=== PATIENT | female | born 1980 | race Caucasian/White ===

== ENCOUNTER 2016-11-27 13:52 | Emergency (ER) | payer MEDICAID, OTHER ==
[2016-11-27 14:54] VITALS: RESP 18
[2016-11-27] MEDS ORDERED: SODIUM CHLORIDE 0.9% 1,000 ML IV STA (16:21)
[2016-11-27] MEDS ORDERED: HYDROmorphone 1 MG/ML 1 ML SYRINGE IVP STA (16:29)
[2016-11-27] MEDS ORDERED: ONDANSETRON 4 MG/2 ML VIAL IVP STA (16:29)
--- NOTE | 2016-11-27 16:33 | ED ---
Abdominal Pain HPI - General Chief Complaint: Abdominal Pain Stated Complaint: Pancreatitis Time Seen by Provider: 11/27/16 16:21 Source: patient, RN notes reviewed Mode of arrival: ambulatory Limitations: no limitations - History of Present Illness Initial Comments: 36-year-old female presents emergency Department chief complaint abdominal pain. Patient states pain started today. Patient has a long-standing history of pancreatitis. Patient had multiple admissions for this. Patient states that she's had EGDs and ERCPs for this. Patient states pain feels very similar and she usually has about every 6 months. Patient states last one was almost one year ago. Patient does admit some nausea no vomiting diarrhea constipation. Patient denies any chest pain or shortness breath. Patient denies any back pain or any flank pain at this time. - Related Data Home Medications Medication Instructions Recorded Confirmed Citalopram Hydrobromide [CeleXA] 10 mg PO DAILY 11/27/16 11/27/16 Previous Rx's Medication Instructions Recorded HYDROcodone/APAP 7.5-325MG [[place] 1 tab PO Q6HR PRN #20 tab 11/27/16 7.5-325] Ondansetron Odt [Zofran Odt] 4 mg PO Q8HR PRN #10 tab 11/27/16 Allergies Allergy/AdvReac Type Severity Reaction Status Date / Time Iodinated Contrast Media - Allergy Severe Anaphylaxis Verified 11/27/16 16:59 Oral and [Iodinated Contrast Media - IV Dye] latex Allergy Rash/Hives Verified 11/27/16 16:59 shellfish derived Allergy Anaphylaxis Verified 11/27/16 16:59 metoclopramide HCl AdvReac Facial Verified 11/27/16 16:59 [From Reglan] Twitching prochlorperazine edisylate AdvReac Facial Verified 11/27/16 16:59 [From Compazine] Twitching prochlorperazine maleate AdvReac Facial Verified 11/27/16 16:59 [From Compazine] Twitching promethazine HCl AdvReac Facial Verified 11/27/16 16:59 [From Phenergan] Twitching Review of Systems ROS Statement: Those systems with pertinent positive or pertinent negative responses have been documented in the HPI. ROS Other: All systems not noted in ROS Statement are negative. Past Medical History Additional Past Medical History / Comment(s): pancreatitis, pancreatic divis History of Any Multi-Drug Resistant Organisms: None Reported Past Surgical History: Uterine Ablation Additional Past Surgical History / Comment(s): laproscopies, multiple egd's and ercp's and ablation (1 years ago) Past Anesthesia/Blood Transfusion Reactions: No Reported Reaction Additional Past Anesthesia/Blood Transfusion Reaction / Comment(s): never had blood transfusion Past Psychological History: No Psychological Hx Reported Smoking Status: Former smoker Past Alcohol Use History: None Reported Additional Past Alcohol Use History / Comment(s): Doesn't drink Past Drug Use History: None Reported - Past Family History Mother Family Medical History: No Reported History Father Family Medical History: No Reported History General Exam Limitations: no limitations General appearance: alert, in no apparent distress Neck exam: Present: normal inspection, full ROM. Absent: tenderness, meningismus, lymphadenopathy Respiratory exam: Present: normal lung sounds bilaterally. Absent: respiratory distress, wheezes, rales, rhonchi, stridor Cardiovascular Exam: Present: regular rate, normal rhythm, normal heart sounds. Absent: systolic murmur, diastolic murmur, rubs, gallop, clicks GI/Abdominal exam: Present: soft, tenderness (Moderate midabdominal tenderness) , normal bowel sounds. Absent: distended, guarding, rebound, rigid Back exam: Absent: CVA tenderness (R), CVA tenderness (L) Course Vital Signs 11/27/16 14:52 Temperature 98.2 F Pulse Rate 113 H Respiratory 18 Rate Blood Pressure 138/75 O2 Sat by Pulse 96 Oximetry Medical Decision Making - Medical Decision Making 36-year-old female presents emergency Department with chief complaint of abdominal pain. Patient has a history of chronic pancreatitis. Patient's lipase is 2500. Patient states she developed this time patient discharged advised to increase her fluids and be discharged with pain medication. - Lab Data Result diagrams: 11/27/16 17:09 11/27/16 17:09 Lab Results 11/27/16 11/27/16 11/27/16 Range/Units 16:54 16:54 17:09 WBC (3.8-10.6) k/uL RBC (3.80-5.40) m/uL Hgb (11.4-16.0) gm/dL Hct (34.0-46.0) % MCV (80.0-100.0) fL MCH (25.0-35.0) pg MCHC (31.0-37.0) g/dL RDW (11.5-15.5) % Plt Count (150-450) k/uL Neutrophils % % Lymphocytes % % Monocytes % % Eosinophils % % Basophils % % Neutrophils # (1.3-7.7) k/uL Lymphocytes # (1.0-4.8) k/uL Monocytes # (0-1.0) k/uL Eosinophils # (0-0.7) k/uL Basophils # (0-0.2) k/uL Sodium 139 (137-145) mmol/L Potassium 4.1 (3.5-5.1) mmol/L Chloride 106 (98-107) mmol/L Carbon Dioxide 21 L (22-30) mmol/L Anion Gap 12 mmol/L BUN 10 (7-17) mg/dL Creatinine 0.77 (0.52-1.04) mg/dL Est GFR (MDRD) Af Amer >60 (>60 ml/min/1.73 sqM) Est GFR (MDRD) Non-Af >60 (>60 ml/min/1.73 sqM) Glucose 94 (74-99) mg/dL Calcium 9.6 (8.4-10.2) mg/dL Total Bilirubin 0.8 (0.2-1.3) mg/dL AST 19 (14-36) U/L ALT 24 (9-52) U/L Alkaline Phosphatase 98 (38-126) U/L Total Protein 7.8 (6.3-8.2) g/dL Albumin 4.6 (3.5-5.0) g/dL Amylase 212 H (30-110) U/L Lipase 531 H (23-300) U/L Urine Color Light Yellow Urine Appearance Clear (Clear) Urine pH 8.0 (5.0-8.0) Ur Specific [place] 1.007 (1.001-1.035) Urine Protein Negative (Negative) Urine Glucose (UA) Negative (Negative) Urine Ketones Negative (Negative) Urine Blood Negative (Negative) Urine Nitrite Negative (Negative) Urine Bilirubin Negative (Negative) Urine Urobilinogen <2.0 (<2.0) mg/dL Ur Leukocyte Esterase Negative (Negative) Urine HCG, Qual Not Detected (Not Detectd) 05/26/17 Range/Units 17:09 WBC 10.8 H (3.8-10.6) k/uL RBC 4.62 (3.80-5.40) m/uL Hgb 13.2 (11.4-16.0) gm/dL Hct 38.8 (34.0-46.0) % MCV 84.0 (80.0-100.0) fL MCH 28.6 (25.0-35.0) pg MCHC 34.0 (31.0-37.0) g/dL RDW 12.3 (11.5-15.5) % Plt Count 332 (150-450) k/uL Neutrophils % 73 % Lymphocytes % 20 % Monocytes % 4 % Eosinophils % 1 % Basophils % 0 % Neutrophils # 7.9 H (1.3-7.7) k/uL Lymphocytes # 2.1 (1.0-4.8) k/uL Monocytes # 0.5 (0-1.0) k/uL Eosinophils # 0.1 (0-0.7) k/uL Basophils # 0.0 (0-0.2) k/uL Sodium (137-145) mmol/L Potassium (3.5-5.1) mmol/L Chloride (98-107) mmol/L Carbon Dioxide (22-30) mmol/L Anion Gap mmol/L BUN (7-17) mg/dL Creatinine (0.52-1.04) mg/dL Est GFR (MDRD) Af Amer (>60 ml/min/1.73 sqM) Est GFR (MDRD) Non-Af (>60 ml/min/1.73 sqM) Glucose (74-99) mg/dL Calcium (8.4-10.2) mg/dL Total Bilirubin (0.2-1.3) mg/dL AST (14-36) U/L ALT (9-52) U/L Alkaline Phosphatase (38-126) U/L Total Protein (6.3-8.2) g/dL Albumin (3.5-5.0) g/dL Amylase (30-110) U/L Lipase (23-300) U/L Urine Color Urine Appearance (Clear) Urine pH (5.0-8.0) Ur Specific [place] (1.001-1.035) Urine Protein (Negative) Urine Glucose (UA) (Negative) Urine Ketones (Negative) Urine Blood (Negative) Urine Nitrite (Negative) Urine Bilirubin (Negative) Urine Urobilinogen (<2.0) mg/dL Ur Leukocyte Esterase (Negative) Urine HCG, Qual (Not Detectd) Disposition Clinical Impression: Chronic pancreatitis, Pancreatic divisum Disposition: HOME SELF-CARE Condition: Stable Instructions: Pancreatitis (ED) Additional Instructions: Please return to the Emergency Department if symptoms worsen or any other concerns. Prescriptions: HYDROcodone/APAP 7.5-325MG [[place] 7.5-325] 1 tab PO Q6HR PRN #20 tab PRN Reason: Pain Ondansetron Odt [Zofran Odt] 4 mg PO Q8HR PRN #10 tab PRN Reason: Nausea Referrals: Andrew Aaron MD [Primary Care Provider] - 1-2 days Time of Disposition: 17:41
[2016-11-27 17:04] LABS: Appearance,Urine Clear (Clear); Bilirubin,Urine Negative (Negative); Glucose,Urine (UA) Negative (Negative); Ketones,Urine Negative (Negative); Leukocyte Esterase,Urine Negative (Negative); Nitrite,Urine Negative (Negative); Protein,Urine Negative (Negative); Specific Gravity,Urine 1.007 (1.001-1.035); UA Billing (MACRO vs. MICRO) CHEM; Urobilinogen,Urine <2.0 mg/dL (<2.0)
[2016-11-27 17:23] LABS: Basophils % (A) 0 %; CH 29.3; Eosinophils # (A) 0.1 k/uL (0-0.7); Eosinophils % (A) 1 %; HCT 38.8 % (34.0-46.0); HDW 2.53; HGB 13.2 gm/dL (11.4-16.0); Luc # (Auto) 0.17; Luc % (Auto) 2; Lymphocytes # (A) 2.1 k/uL (1.0-4.8); Lymphocytes % (A) 20 %; MCH 28.6 pg (25.0-35.0); Mean Platelet Volume 6.9; Monocytes # (A) 0.5 k/uL (0-1.0); Monocytes % (A) 4 %; Neutrophils # (A) 7.9 k/uL (1.3-7.7); Neutrophils % (A) 73 %; RBC 4.62 m/uL (3.80-5.40); RDW 12.3 % (11.5-15.5); WBC 10.8 k/uL (3.8-10.6); WBC (Perox) 10.45
[2016-11-27 17:31] LABS: ALT 24 U/L (9-52); AST 19 U/L (14-36); Alkaline Phosphatase 98 U/L (38-126); Amylase 212 U/L (30-110); Anion Gap 12 mmol/L; Blood Urea Nitrogen 10 mg/dL (7-17); Calcium 9.6 mg/dL (8.4-10.2); Carbon Dioxide 21 mmol/L (22-30); Chloride 106 mmol/L (98-107); Glucose 94 mg/dL (74-99); Non-African American GFR(MDRD) >60 (>60 ml/min/1.73 sqM); Potassium 4.1 mmol/L (3.5-5.1); Sodium 139 mmol/L (137-145); Total Bilirubin 0.8 mg/dL (0.2-1.3); Total Protein 7.8 g/dL (6.3-8.2)
[2016-11-27 17:55] VITALS: BP 110/59; PULSE 95; TEMP 98.4
== END 2016-11-27 17:55 | disposition home or self-care (01) ==
LOC: EC 13:52
DX: K86.1 Other chronic pancreatitis (principal); Q45.3 Other congenital malformations of pancreas and pancreatic duct; R11.0 Nausea; Z87.891 Personal history of nicotine dependence; Z79.899 Other long term (current) drug therapy; Z91.041 Radiographic dye allergy status; Z91.013 Allergy to seafood; Z88.8 Allergy status to other drugs, medicaments and biological substances; Z91.040 Latex allergy status
CPT/HCPCS: 36415; 80053; 82150; 83690; 85025; 81003; 81025; 99284; 96374; 96375; 96361; J2405; J1170

== ENCOUNTER → 2017-01-19 | Outpatient (CLI) | payer MEDICAID, OTHER ==
[2017-01-19 08:21] LABS: Basophils # (A) 0.1 k/uL (0-0.2); Basophils % (A) 1 %; CH 28.9; CHCM 33.8; Eosinophils # (A) 0.1 k/uL (0-0.7); Eosinophils % (A) 1 %; HCT 40.6 % (34.0-46.0); HDW 2.44; HGB 13.8 gm/dL (11.4-16.0); Luc # (Auto) 0.17; Luc % (Auto) 2; Lymphocytes % (A) 31 %; MCH 29.1 pg (25.0-35.0); MCV 85.8 fL (80.0-100.0); Mean Platelet Volume 7.3; Monocytes # (A) 0.4 k/uL (0-1.0); Monocytes % (A) 5 %; Neutrophils # (A) 5.8 k/uL (1.3-7.7); Neutrophils % (A) 60 %; RBC 4.73 m/uL (3.80-5.40); RDW 12.7 % (11.5-15.5); WBC 9.6 k/uL (3.8-10.6)
[2017-01-19 08:43] LABS: ALT 23 U/L (9-52); AST 17 U/L (14-36); Alkaline Phosphatase 94 U/L (38-126); Anion Gap 12 mmol/L; Blood Urea Nitrogen 10 mg/dL (7-17); Calcium 9.5 mg/dL (8.4-10.2); Carbon Dioxide 24 mmol/L (22-30); Chloride 105 mmol/L (98-107); Cholesterol 213 mg/dL (<200); Glucose 88 mg/dL (74-99); HDL Cholesterol 59 mg/dL (40-60); Non-African American GFR(MDRD) >60 (>60 ml/min/1.73 sqM); Potassium 4.4 mmol/L (3.5-5.1); Sodium 141 mmol/L (137-145); Total Bilirubin 0.5 mg/dL (0.2-1.3); Total Protein 7.4 g/dL (6.3-8.2); Triglycerides 184 mg/dL (<150)
== END | disposition home or self-care (01) ==
LOC: LABWHC1 07:51
PROVIDERS: ATTEND Family Medicine
DX: Z00.00 Encounter for general adult medical examination without abnormal findings (principal)
CPT/HCPCS: 36415; 80053; 80061; 82306; 84443; 85025

== ENCOUNTER → 2017-01-25 | Outpatient (CLI) | payer MEDICAID, OTHER | END | disposition home or self-care (01) | LOC: LABWHC1 08:18 | PROVIDERS: ATTEND Family Medicine | DX: F41.9 Anxiety disorder, unspecified (principal) | CPT/HCPCS: 36415; 84439; 84443; 84481 ==

== ENCOUNTER → 2017-04-08 | Outpatient (CLI) | payer MEDICAID, OTHER ==
[2017-04-08 09:59] LABS: ALT 32 U/L (9-52); AST 17 U/L (14-36); Alkaline Phosphatase 93 U/L (38-126); Anion Gap 11 mmol/L; Blood Urea Nitrogen 7 mg/dL (7-17); Calcium 9.7 mg/dL (8.4-10.2); Carbon Dioxide 25 mmol/L (22-30); Chloride 104 mmol/L (98-107); Glucose 100 mg/dL (74-99); Non-African American GFR(MDRD) >60 (>60 ml/min/1.73 sqM); Potassium 4.6 mmol/L (3.5-5.1); Sodium 140 mmol/L (137-145); Total Bilirubin 0.5 mg/dL (0.2-1.3); Total Protein 7.1 g/dL (6.3-8.2)
== END | disposition home or self-care (01) ==
LOC: LABWHC1 08:06
PROVIDERS: ATTEND Family Medicine
DX: E55.9 Vitamin D deficiency, unspecified (principal); R79.89 Other specified abnormal findings of blood chemistry
CPT/HCPCS: 36415; 80053; 82306; 84436; 84443; 84481

== ENCOUNTER → 2017-09-24 | Outpatient (CLI) | payer MEDICAID, OTHER ==
[2017-09-24 08:45] LABS: Basophils # (A) 0.1 k/uL (0-0.2); Basophils % (A) 1 %; Eosinophils # (A) 0.2 k/uL (0-0.7); Eosinophils % (A) 2 %; HCT 38.9 % (34.0-46.0); HGB 13.7 gm/dL (11.4-16.0); Lymphocytes # (A) 2.3 k/uL (1.0-4.8); Lymphocytes % (A) 30 %; MCH 29.1 pg (25.0-35.0); MCHC 35.2 g/dL (31.0-37.0); MCV 82.6 fL (80.0-100.0); Mean Platelet Volume 6.9; Monocytes # (A) 0.5 k/uL (0-1.0); Monocytes % (A) 6 %; Neutrophils # (A) 4.8 k/uL (1.3-7.7); Neutrophils % (A) 60 %; Platelet Count 394 k/uL (150-450); RBC 4.71 m/uL (3.80-5.40); RDW 12.2 % (11.5-15.5); WBC 7.9 k/uL (3.8-10.6)
[2017-09-24 10:55] LABS: ALT 24 U/L (9-52); AST 16 U/L (14-36); Albumin 4.6 g/dL (3.5-5.0); Alkaline Phosphatase 74 U/L (38-126); Anion Gap 15 mmol/L; Blood Urea Nitrogen 17 mg/dL (7-17); Carbon Dioxide 25 mmol/L (22-30); Chloride 104 mmol/L (98-107); Glucose 99 mg/dL (74-99); Potassium 4.6 mmol/L (3.5-5.1); Sodium 144 mmol/L (137-145); Total Bilirubin 0.3 mg/dL (0.2-1.3); Total Protein 7.6 g/dL (6.3-8.2)
[2017-09-24 11:09] LABS: T4, Free (Free Thyroxine) 0.94 ng/dL (0.78-2.19)
== END | disposition home or self-care (01) ==
LOC: LABWHC1 08:12
PROVIDERS: ATTEND Family Medicine
DX: E55.9 Vitamin D deficiency, unspecified (principal); R94.6 Abnormal results of thyroid function studies
CPT/HCPCS: 36415; 80053; 82306; 84439; 84443; 84481; 85025

== ENCOUNTER 2017-11-07 19:40 | Inpatient (IN) | payer MEDICAID, OTHER ==
[2017-11-07] MEDS ORDERED: SODIUM CHLORIDE 0.9% 1,000 ML IV STA (20:09)
[2017-11-07] MEDS ORDERED: SODIUM CHLORIDE 0.9% 500 ML IV STA (20:09)
[2017-11-07] MEDS ORDERED: ONDANSETRON 4 MG/2 ML VIAL IVP STA (20:09)
[2017-11-07] MEDS ORDERED: MORPHINE SULFATE 4 MG/ML SYRINGE IVP STA ×2 (20:09→21:12)
[2017-11-07 20:33] LABS: Basophils % (A) 0 %; Eosinophils # (A) 0.2 k/uL (0-0.7); Eosinophils % (A) 2 %; HCT 38.3 % (34.0-46.0); HGB 13.4 gm/dL (11.4-16.0); Lymphocytes # (A) 2.6 k/uL (1.0-4.8); Lymphocytes % (A) 22 %; MCH 28.3 pg (25.0-35.0); MCHC 35.1 g/dL (31.0-37.0); MCV 80.7 fL (80.0-100.0); Mean Platelet Volume 6.7; Monocytes # (A) 0.5 k/uL (0-1.0); Monocytes % (A) 4 %; Neutrophils # (A) 8.1 k/uL (1.3-7.7); Neutrophils % (A) 71 %; Platelet Count 396 k/uL (150-450); RBC 4.74 m/uL (3.80-5.40); RDW 12.1 % (11.5-15.5); WBC 11.5 k/uL (3.8-10.6)
[2017-11-07 20:36] LABS: Appearance,Urine Cloudy (Clear); Bacteria,Urine Occasional /hpf; Bilirubin,Urine Negative (Negative); Blood,Urine Negative (Negative); Color,Urine Yellow; Glucose,Urine (UA) Negative (Negative); Ketones,Urine Negative (Negative); Leukocyte Esterase,Urine Negative (Negative); Nitrite,Urine Negative (Negative); PH, Urine 6.5 (5.0-8.0); Protein,Urine Negative (Negative); Specific Gravity,Urine 1.018 (1.001-1.035); Squamous Epithelial Cell,Urine 7 /hpf (0-4); WBC,Urine 1 /hpf (0-5)
[2017-11-07 20:49] LABS: ALT 16 U/L (9-52); AST 14 U/L (14-36); Albumin 4.3 g/dL (3.5-5.0); Alkaline Phosphatase 78 U/L (38-126); Anion Gap 14 mmol/L; Blood Urea Nitrogen 10 mg/dL (7-17); Calcium 9.3 mg/dL (8.4-10.2); Carbon Dioxide 23 mmol/L (22-30); Chloride 106 mmol/L (98-107); Glucose 104 mg/dL (74-99); Potassium 4.1 mmol/L (3.5-5.1); Sodium 143 mmol/L (137-145); Total Bilirubin 0.3 mg/dL (0.2-1.3); Total Protein 6.9 g/dL (6.3-8.2)
--- NOTE | 2017-11-07 21:36 | ED ---
Abdominal Pain HPI - General Chief Complaint: Abdominal Pain Stated Complaint: Abd Pain Time Seen by Provider: 11/07/17 19:55 Source: patient Mode of arrival: ambulatory Limitations: no limitations - History of Present Illness Initial Comments: 37-year-old female patient presents to the emergency department today with complaints of midepigastric pain that radiates into her back. Patient does have a history of pancreatitis due to pancreatic divisum. Patient states that usually she is able to get the attacks under control at home with pain medication. States that today the pain is too severe and she is unable to tolerate it. Patient states she has been very nauseated but has not vomited. The patient states that pain started around 9:00 this morning. She denies any constipation, diarrhea, fever, chills, hematuria, dysuria, urinary frequency, urinary urgency. Patient denies any recent rash, shortness breath, chest pain, numbness, tingling, dizziness, weakness, headache, visual changes, or any other complaints. - Related Data Home Medications Medication Instructions Recorded Confirmed Citalopram Hydrobromide [CeleXA] 10 mg PO DAILY 11/27/16 11/27/16 Previous Rx's Medication Instructions Recorded HYDROcodone/APAP 7.5-325MG [[place] 1 tab PO Q6HR PRN #20 tab 11/27/16 7.5-325] Ondansetron Odt [Zofran Odt] 4 mg PO Q8HR PRN #10 tab 11/27/16 Allergies Allergy/AdvReac Type Severity Reaction Status Date / Time Iodinated Contrast- Oral and Allergy Severe Anaphylaxis Verified 11/07/17 19:54 IV Dye [Iodinated Contrast Media - IV Dye] latex Allergy Rash/Hives Verified 11/07/17 19:54 shellfish derived Allergy Anaphylaxis Verified 11/07/17 19:54 metoclopramide HCl AdvReac Facial Verified 11/07/17 19:54 [From Reglan] Twitching prochlorperazine edisylate AdvReac Facial Verified 11/07/17 19:54 [From Compazine] Twitching prochlorperazine maleate AdvReac Facial Verified 11/07/17 19:54 [From Compazine] Twitching promethazine HCl AdvReac Facial Verified 11/07/17 19:54 [From Phenergan] Twitching Review of Systems ROS Statement: Those systems with pertinent positive or pertinent negative responses have been documented in the HPI. ROS Other: All systems not noted in ROS Statement are negative. Past Medical History Additional Past Medical History / Comment(s): pancreatitis, pancreatic divis History of Any Multi-Drug Resistant Organisms: None Reported Past Surgical History: Uterine Ablation Additional Past Surgical History / Comment(s): laproscopies, multiple egd's and ercp's and ablation (1 years ago) Past Anesthesia/Blood Transfusion Reactions: No Reported Reaction Additional Past Anesthesia/Blood Transfusion Reaction / Comment(s): never had blood transfusion Past Psychological History: No Psychological Hx Reported Smoking Status: Former smoker Past Alcohol Use History: None Reported Past Drug Use History: None Reported - Past Family History Mother Family Medical History: No Reported History Father Family Medical History: No Reported History General Exam Limitations: no limitations General appearance: alert, in no apparent distress, other (This is a well- developed, well-nourished adult female patient in no acute distress. Vital signs upon presentation are temperature 97.6F, pulse 118, respirations 18, blood pressure 125/77, pulse ox 96% on room air.) Eye exam: Present: normal appearance, PERRL, EOMI. Absent: scleral icterus, conjunctival injection, periorbital swelling ENT exam: Present: normal exam, normal oropharynx, mucous membranes moist Respiratory exam: Present: normal lung sounds bilaterally. Absent: respiratory distress, wheezes, rales, rhonchi, stridor Cardiovascular Exam: Present: regular rate, normal rhythm, normal heart sounds. Absent: systolic murmur, diastolic murmur, rubs, gallop, clicks GI/Abdominal exam: Present: soft, tenderness (Midepigastric tenderness, right upper quadrant tenderness), normal bowel sounds. Absent: distended, guarding, rebound, rigid Neurological exam: Present: alert, oriented X3, CN II-XII intact Psychiatric exam: Present: normal affect, normal mood Skin exam: Present: warm, dry, intact, normal color. Absent: rash Course Vital Signs 11/07/17 11/07/17 19:52 23:07 Temperature 97.6 F 98.8 F Pulse Rate 118 H 106 H Respiratory 18 18 Rate Blood Pressure 125/77 143/78 O2 Sat by Pulse 96 99 Oximetry Medical Decision Making - Medical Decision Making 37-year-old female patient presented to the emergency department today for evaluation of severe midepigastric pain. Physical examination did reveal midepigastric tenderness. Labs reviewed and did reveal an amylase of 2225, lipase of greater than 20,000. Case was discussed with [facility] hospitalists group Dr. Cuellar. She will be admitted for IV fluid resuscitation and pain management. GI was consulted. - Lab Data Result diagrams: 11/07/17 20:18 11/07/17 20:18 Lab Results 11/07/17 11/07/17 11/07/17 Range/Units 20:18 20:18 20:18 WBC 11.5 H (3.8-10.6) k/uL RBC 4.74 (3.80-5.40) m/uL Hgb 13.4 (11.4-16.0) gm/dL Hct 38.3 (34.0-46.0) % MCV 80.7 (80.0-100.0) fL MCH 28.3 (25.0-35.0) pg MCHC 35.1 (31.0-37.0) g/dL RDW 12.1 (11.5-15.5) % Plt Count 396 (150-450) k/uL Neutrophils % 71 % Lymphocytes % 22 % Monocytes % 4 % Eosinophils % 2 % Basophils % 0 % Neutrophils # 8.1 H (1.3-7.7) k/uL Lymphocytes # 2.6 (1.0-4.8) k/uL Monocytes # 0.5 (0-1.0) k/uL Eosinophils # 0.2 (0-0.7) k/uL Basophils # 0.0 (0-0.2) k/uL Sodium 143 (137-145) mmol/L Potassium 4.1 (3.5-5.1) mmol/L Chloride 106 (98-107) mmol/L Carbon Dioxide 23 (22-30) mmol/L Anion Gap 14 mmol/L BUN 10 (7-17) mg/dL Creatinine 0.70 (0.52-1.04) mg/dL Est GFR (CKD-EPI)AfAm >90 (>60 ml/min/1.73 sqM) Est GFR (CKD-EPI)NonAf >90 (>60 ml/min/1.73 sqM) Glucose 104 H (74-99) mg/dL Calcium 9.3 (8.4-10.2) mg/dL Total Bilirubin 0.3 (0.2-1.3) mg/dL AST 14 (14-36) U/L ALT 16 (9-52) U/L Alkaline Phosphatase 78 (38-126) U/L Total Protein 6.9 (6.3-8.2) g/dL Albumin 4.3 (3.5-5.0) g/dL Amylase (30-110) U/L Lipase >26347 H (23-300) U/L Urine Color Yellow Urine Appearance Cloudy H (Clear) Urine pH 6.5 (5.0-8.0) Ur Specific [place] 1.018 (1.001-1.035) Urine Protein Negative (Negative) Urine Glucose (UA) Negative (Negative) Urine Ketones Negative (Negative) Urine Blood Negative (Negative) Urine Nitrite Negative (Negative) Urine Bilirubin Negative (Negative) Urine Urobilinogen 2.0 (<2.0) mg/dL Ur Leukocyte Esterase Negative (Negative) Urine WBC 1 (0-5) /hpf Ur Squamous Epith Cells 7 H (0-4) /hpf Urine Bacteria Occasional H (None) /hpf 11/07/17 Range/Units 20:18 WBC (3.8-10.6) k/uL RBC (3.80-5.40) m/uL Hgb (11.4-16.0) gm/dL Hct (34.0-46.0) % MCV (80.0-100.0) fL MCH (25.0-35.0) pg MCHC (31.0-37.0) g/dL RDW (11.5-15.5) % Plt Count (150-450) k/uL Neutrophils % % Lymphocytes % % Monocytes % % Eosinophils % % Basophils % % Neutrophils # (1.3-7.7) k/uL Lymphocytes # (1.0-4.8) k/uL Monocytes # (0-1.0) k/uL Eosinophils # (0-0.7) k/uL Basophils # (0-0.2) k/uL Sodium (137-145) mmol/L Potassium (3.5-5.1) mmol/L Chloride (98-107) mmol/L Carbon Dioxide (22-30) mmol/L Anion Gap mmol/L BUN (7-17) mg/dL Creatinine (0.52-1.04) mg/dL Est GFR (CKD-EPI)AfAm (>60 ml/min/1.73 sqM) Est GFR (CKD-EPI)NonAf (>60 ml/min/1.73 sqM) Glucose (74-99) mg/dL Calcium (8.4-10.2) mg/dL Total Bilirubin (0.2-1.3) mg/dL AST (14-36) U/L ALT (9-52) U/L Alkaline Phosphatase (38-126) U/L Total Protein (6.3-8.2) g/dL Albumin (3.5-5.0) g/dL Amylase 2225 H* (30-110) U/L Lipase (23-300) U/L Urine Color Urine Appearance (Clear) Urine pH (5.0-8.0) Ur Specific [place] (1.001-1.035) Urine Protein (Negative) Urine Glucose (UA) (Negative) Urine Ketones (Negative) Urine Blood (Negative) Urine Nitrite (Negative) Urine Bilirubin (Negative) Urine Urobilinogen (<2.0) mg/dL Ur Leukocyte Esterase (Negative) Urine WBC (0-5) /hpf Ur Squamous Epith Cells (0-4) /hpf Urine Bacteria (None) /hpf - Radiology Data Radiology results: report reviewed Disposition Clinical Impression: Pancreatitis Disposition: ADMITTED IP TO THIS [facility] Condition: Serious Decision to Admit Reason: Admit from EC Decision Date: 11/07/17 Decision Time: 22:53
[2017-11-07 22:11] LABS: Lipase >20000 U/L (23-300)
[2017-11-07] MEDS ORDERED: NALOXONE 0.4 MG/ML 1 ML VIAL IV PRN (22:53)
[2017-11-07] MEDS: SODIUM CHLORIDE 0.9% 1,000 ML IV SCH (23:05)
[2017-11-07 23:30] VITALS: BMI 40.3
[2017-11-08] MEDS: MORPHINE SULFATE 4 MG/ML SYRINGE IV PRN ×4 (01:44→18:24)
[2017-11-08] MEDS: ONDANSETRON 4 MG/2 ML VIAL IVP PRN ×2 (04:24→13:42)
[2017-11-08] MEDS: SODIUM CHLORIDE 0.9% 1,000 ML IV SCH ×3 (05:32→18:10)
[2017-11-08 07:48] LABS: Basophils % (A) 0 %; Eosinophils # (A) 0.1 k/uL (0-0.7); Eosinophils % (A) 1 %; HCT 35.5 % (34.0-46.0); HGB 11.9 gm/dL (11.4-16.0); Lymphocytes # (A) 2.2 k/uL (1.0-4.8); Lymphocytes % (A) 26 %; MCHC 33.4 g/dL (31.0-37.0); MCV 83.6 fL (80.0-100.0); Mean Platelet Volume 6.6; Monocytes # (A) 0.5 k/uL (0-1.0); Monocytes % (A) 5 %; Neutrophils # (A) 5.5 k/uL (1.3-7.7); Neutrophils % (A) 66 %; Platelet Count 319 k/uL (150-450); RBC 4.25 m/uL (3.80-5.40); RDW 12.1 % (11.5-15.5); WBC 8.4 k/uL (3.8-10.6)
[2017-11-08] MEDS: KETOROLAC 30 MG/ML 1 ML VIAL IVP PRN ×2 (08:03→15:06)
[2017-11-08 08:18] LABS: ALT 22 U/L (9-52); AST 12 U/L (14-36); Albumin 3.2 g/dL (3.5-5.0); Alkaline Phosphatase 62 U/L (38-126); Anion Gap 10 mmol/L; Blood Urea Nitrogen 6 mg/dL (7-17); Calcium 8.3 mg/dL (8.4-10.2); Carbon Dioxide 24 mmol/L (22-30); Chloride 108 mmol/L (98-107); Glucose 100 mg/dL (74-99); Sodium 142 mmol/L (137-145); Total Bilirubin 0.4 mg/dL (0.2-1.3); Total Protein 5.5 g/dL (6.3-8.2)
[2017-11-08 09:07] LABS: Amylase 1658 U/L (30-110)
[2017-11-08 09:37] LABS: Lipase 10991 U/L (23-300)
--- NOTE | 2017-11-08 10:46 | P.HPIM ---
History of Present Illness 37-year-old the female came in with comments of epigastric abdominal pain severe with nausea vomiting nausea presently improved pain improved as well. Patient does have history of pancreatic divisum no alcohol history is still have a gallbladder and patient had multiple episodes of pancreatitis in the past. Patient denied any fever chills dysuria. I really patient shouldn't be on nonsteroidal anti-inflammatory is with the morphine doesn't make her feel good because of which patient was started on Toradol because most probably this is pancreatitis I believe it's okay to continue Toradol along with Protonix which will be started. Patient is on IV fluids not an nothing by mouth at this time. Patient will remain nothing by mouth today for her nausea gets better patient can be started on diet tomorrow. Review of Systems REVIEW OF SYSTEMS: CONSTITUTIONAL: No fever, no malaise, no fatigue. HEENT: No recent visual problems or hearing problems. Denied any sore throat. CARDIOVASCULAR: No chest pain, orthopnea, PND, no palpitations, no syncope. PULMONARY: No shortness of breath, no cough, no hemoptysis. GASTROINTESTINAL: As described in HPI NEUROLOGICAL: No headaches, no weakness, no numbness. HEMATOLOGICAL: Denies any bleeding or petechiae. GENITOURINARY: Denies any burning micturition, frequency, or urgency. MUSCULOSKELETAL/RHEUMATOLOGICAL: Denies any joint pain, swelling, or any muscle pain. ENDOCRINE: Denies any polyuria or polydipsia. The rest of the 14-point review of systems is negative. Past Medical History Additional Past Medical History / Comment(s): pancreatitis, pancreatic divis History of Any Multi-Drug Resistant Organisms: None Reported Past Surgical History: Uterine Ablation Additional Past Surgical History / Comment(s): laproscopies, multiple egd's and ercp's and ablation (1 years ago) Past Anesthesia/Blood Transfusion Reactions: No Reported Reaction Additional Past Anesthesia/Blood Transfusion Reaction / Comment(s): never had blood transfusion Past Psychological History: No Psychological Hx Reported Smoking Status: Former smoker Past Alcohol Use History: None Reported Past Drug Use History: None Reported - Past Family History Mother Family Medical History: No Reported History Father Family Medical History: No Reported History Medications and Allergies Home Medications Medication Instructions Recorded Confirmed Type Ondansetron Odt [Zofran Odt] 4 mg PO Q8HR PRN #10 tab 11/27/16 11/08/17 Rx Cholecalciferol [Vitamin D3] 1,000 unit PO DAILY 11/08/17 11/08/17 History Citalopram Hydrobromide 20 mg PO DAILY 11/08/17 11/08/17 History [Citalopram HBr] HYDROcodone/APAP 7.5-325MG [[place] 1 tab PO BID PRN 11/08/17 11/08/17 History 7.5-325] LORazepam [Ativan] 1 mg PO DAILY PRN 11/08/17 11/08/17 History Allergies Allergy/AdvReac Type Severity Reaction Status Date / Time Iodinated Contrast- Oral and Allergy Severe Anaphylaxis Verified 11/08/17 08:02 IV Dye [Iodinated Contrast Media - IV Dye] latex Allergy Rash/Hives Verified 11/08/17 08:02 shellfish derived Allergy Anaphylaxis Verified 11/08/17 08:02 metoclopramide HCl AdvReac Facial Verified 11/08/17 08:02 [From Reglan] Twitching prochlorperazine edisylate AdvReac Facial Verified 11/08/17 08:02 [From Compazine] Twitching prochlorperazine maleate AdvReac Facial Verified 11/08/17 08:02 [From Compazine] Twitching promethazine HCl AdvReac Facial Verified 11/08/17 08:02 [From Phenergan] Twitching Physical Exam Vitals: Vital Signs Temp Pulse Pulse Resp BP BP Pulse Ox 11/08/17 07:08 97.4 F L 90 18 119/72 92 L 11/07/17 23:29 97.8 F 114 H 16 135/78 95 11/07/17 23:07 98.8 F 106 H 18 143/78 99 11/07/17 19:52 97.6 F 118 H 18 125/77 96 Intake and Output 11/07/17 11/08/17 11/08/17 22:59 06:59 14:59 Intake Total 900 Balance 900 Intake: Intake, IV Titration 900 Amount Sodium Chloride 0.9% 1, 900 000 ml @ 150 mls/hr IV . Q6H40M [facility] Rx#:[id number] Other: Voiding Method Toilet Toilet # Voids 1 1 Weight 108.862 kg 110 kg PHYSICAL EXAMINATION: GENERAL: The patient is alert and oriented x3, not in any acute distress. Well developed, well nourished. HEENT: Pupils are round and equally reacting to light. EOMI. No scleral icterus. No conjunctival pallor. Normocephalic, atraumatic. No pharyngeal erythema. No thyromegaly. CARDIOVASCULAR: S1 and S2 present. No murmurs, rubs, or gallops. PULMONARY: Chest is clear to auscultation, no wheezing or crackles. ABDOMEN: Minimal epigastric abdominal tenderness abdomen is soft no rebound or rigidity. MUSCULOSKELETAL: No joint swelling or deformity. EXTREMITIES: No cyanosis, clubbing, or pedal edema. NEUROLOGICAL: Gross neurological examination did not reveal any focal deficits. SKIN: No rashes. Results CBC & Chem 7: 11/08/17 07:04 11/07/17 20:18 Labs: Abnormal Lab Results - Last 24 Hours (Table) 11/07/17 11/07/17 11/07/17 Range/Units 20:18 20:18 20:18 WBC 11.5 H (3.8-10.6) k/uL Neutrophils # 8.1 H (1.3-7.7) k/uL Glucose 104 H (74-99) mg/dL Amylase (30-110) U/L Lipase >50079 H (23-300) U/L Urine Appearance Cloudy H (Clear) Ur Squamous Epith Cells 7 H (0-4) /hpf Urine Bacteria Occasional H (None) /hpf 11/07/17 11/08/17 Range/Units 20:18 07:04 WBC (3.8-10.6) k/uL Neutrophils # (1.3-7.7) k/uL Glucose (74-99) mg/dL Amylase 2225 H* 1658 H* (30-110) U/L Lipase 25376 H (23-300) U/L Urine Appearance (Clear) Ur Squamous Epith Cells (0-4) /hpf Urine Bacteria (None) /hpf Thrombosis Risk Factor Assmnt - Choose All That Apply Any of the Below Risk Factors Present?: Yes Each Factor Represents 1 point: Obesity (BMI >25) Other Risk Factors: No Other congenital or acquired thrombophilia - If yes, enter type in comment: No Thrombosis Risk Factor Assessment Total Risk Factor Score: 1 Thrombosis Risk Factor Assessment Level: Low Risk Assessment and Plan Plan: -Acute pancreatitis: History of pancreatic divisum patient will remain nothing by mouth. IV fluids as mentioned above pain management as mentioned above. -Depression: Patient will be resumed on her antidepressants once we're able to start her on diet. -Leukocytosis: Reactive secondary to pancreatitis no other signs or symptoms of infection no need for antibiotics at this time.
[2017-11-08] MEDS: PANTOPRAZOLE 40 MG/10 ML VIAL IVP SCH (11:52)
--- NOTE | 2017-11-08 15:35 | CONS ---
CONSULTATION DATE OF SERVICE: 11/08/2017 REASON FOR CONSULTATION: Acute recurrent pancreatitis. HISTORY OF PRESENT ILLNESS: The patient is a 37-year-old pleasant white female who was admitted to the hospital with acute onset of epigastric pain that started yesterday evening. Came to the emergency room and was admitted to hospital because of elevated amylase and lipase consistent with pancreatitis. The patient has been having multiple episodes of pancreatitis since age 29. She has on an average 1 or 2 episodes requiring hospitalization for usually 2-3 days. She was investigated in the past. She was sent to she was referred to [facility] as well as [facility], underwent ERCP and was initially diagnosed with pancreatitis status post endoscopy papillectomy. Despite the continued to have multiple recurrent episodes of pancreatitis. She was not seen a year from for the last 4 years. She is feeling much better today. She still has some epigastric discomfort. No nausea, vomiting. No fever, chills, or night sweats. PAST MEDICAL HISTORY: Acute recurrent pancreatitis/pancreatic divisum diagnosed 5 years ago. Past medical history uterine ablation, multiple ERCPs. MEDICATIONS: At home include Zofran, [place], citalopram, vitamin D3, and Ativan. ALLERGIES: To SHELLFISH, REGLAN, COMPAZINE and IV DYE. SOCIAL HISTORY: No smoking. No alcohol use. FAMILY HISTORY: Unremarkable review of systems cardiopulmonary no chest pain, shortness of breath and a unremarkable skin unremarkable endocrine unremarkable psychiatric unremarkable. Neurology unremarkable. ENT vision unremarkable. Constitutional no recent weight loss. No fever, chills, night sweats. PHYSICAL EXAMINATION: She appears comfortable. No apparent distress. VITAL SIGNS: Stable blood pressure is 143/78, pulse rate 106, temperature 98 HEENT examination unremarkable consulting sclerae anicteric oral cavity no lesions. The chest was clear to auscultation. HEART: Regular rate and rhythm and rhythm. ABDOMEN: Soft. There was mild tenderness in the epigastric area. Bowel sounds are positive. No organomegaly extremities no pedal edema skin no rashes. NEUROLOGIC: Alert and oriented x3. No focal deficits. LAB: Done at the time of admission hospital WBC 11.5, hemoglobin 13.4, platelets are normal. Basic metabolic panel is within normal limits. Amylase is 225, lipase is more than 20,000 this morning. Amylase is 16 58 and lipase is 10,991. ALT, AST, and T bili and alkaline phosphatase are within normal limits. IMPRESSION: Acute recurrent pancreatitis with multiple hospitalizations over the last 8 years as mentioned a she was investigated extensively at [facility] as well as a CT and no obvious pathology identified. Initially, it was thought it was related to pancreatic divisum and she underwent ERCP with endoscopic papillotomy with no change consider genetic causes of acute pancreatitis. RECOMMENDATIONS: 1. Continue with symptomatic and supportive care. 2. Keep n.p.o. for now. 3. If her symptoms improve, tomorrow she can be started on clear liquid diet and hopefully we will discharge home in 1-2 days. 4. She will be seen in the office in 2 weeks following discharge from the hospital. At this time, I did recommend her to be seen at [facility] once again to evaluate for genetic causes of acute recurrent pancreatitis. For now, will follow her closely during her hospital stay. Thank you for this consultation. JASON / CHINO: [id number] /
[2017-11-09] MEDS: MORPHINE SULFATE 4 MG/ML SYRINGE IV PRN (00:13)
[2017-11-09] MEDS: KETOROLAC 30 MG/ML 1 ML VIAL IVP PRN (04:51)
[2017-11-09] MEDS: SODIUM CHLORIDE 0.9% 1,000 ML IV SCH ×3 (07:30→13:02)
[2017-11-09 07:35] LABS: Basophils % (A) 0 %; Eosinophils # (A) 0.2 k/uL (0-0.7); Eosinophils % (A) 2 %; HCT 33.8 % (34.0-46.0); Lymphocytes % (A) 23 %; MCH 27.6 pg (25.0-35.0); MCHC 32.6 g/dL (31.0-37.0); MCV 84.8 fL (80.0-100.0); Mean Platelet Volume 7.4; Monocytes # (A) 0.4 k/uL (0-1.0); Monocytes % (A) 5 %; Neutrophils # (A) 6.1 k/uL (1.3-7.7); Neutrophils % (A) 69 %; Platelet Count 270 k/uL (150-450); RBC 3.98 m/uL (3.80-5.40); RDW 12.5 % (11.5-15.5); WBC 8.9 k/uL (3.8-10.6)
[2017-11-09 07:43] VITALS: BP 111/57; PULSE 73; RESP 16; TEMP 98.3
[2017-11-09 07:48] LABS: Anion Gap 9 mmol/L; Blood Urea Nitrogen 5 mg/dL (7-17); Calcium 8.2 mg/dL (8.4-10.2); Carbon Dioxide 24 mmol/L (22-30); Chloride 108 mmol/L (98-107); Glucose 85 mg/dL (74-99); Lipase 702 U/L (23-300); Potassium 4.3 mmol/L (3.5-5.1); Sodium 141 mmol/L (137-145)
[2017-11-09] MEDS: PANTOPRAZOLE 40 MG/10 ML VIAL IVP SCH (09:21)
--- NOTE | 2017-11-09 09:38 | P.PN ---
Subjective Progress Note Date: 11/09/17 Principal diagnosis: pancreatitis Feels better. Requesting diet advancement. Afebrile. Lipase much improved 702. Objective - Vital Signs Vital signs: Vital Signs Temp 97.2 F L 11/08/17 20:30 Pulse 83 11/08/17 20:30 Resp 18 11/08/17 20:30 BP 115/63 11/08/17 20:30 Pulse Ox 92 L 11/08/17 20:30 Intake & Output 11/08/17 11/09/17 11/09/17 18:59 06:59 18:59 Intake Total 1200 Balance 1200 Intake: Intake, IV Titration 1200 Amount Sodium Chloride 0.9% 1, 1200 000 ml @ 150 mls/hr IV . Q6H40M [facility] Rx#:[id number] Other: Voiding Method Toilet Toilet # Voids 4 2 - Exam General appearance: The patient is alert, oriented, in no acute distress. HET: Head is normocephalic and atraumatic. Pupils are equal and reactive. Oropharynx is clear without lesions. Neck: Supple without lymphadenopathy. Trachea midline. Heart: S1 S2. Regular rate and rhythm. Lungs: No crackles or wheezes are heard. Abdomen: Soft, mild midepigastric left upper quadrant tenderness, nondistended with bowel sounds. No peritoneal signs. No palpable organomegaly or masses. Extremities: Normal skin color and turgor. No cyanosis, rash, ulceration, clubbing, or edema. Radial and pedal pulses are 2/4 bilaterally. Neurological: No focal deficits. Strength and sensation are grossly intact. - Labs CBC & Chem 7: 11/09/17 07:06 11/09/17 07:06 Labs: Abnormal Lab Results - Last 24 Hours (Table) 11/08/17 Range/Units 07:04 Chloride 108 H (98-107) mmol/L BUN 6 L (7-17) mg/dL Glucose 100 H (74-99) mg/dL Calcium 8.3 L (8.4-10.2) mg/dL AST 12 L (14-36) U/L Total Protein 5.5 L (6.3-8.2) g/dL Albumin 3.2 L (3.5-5.0) g/dL Amylase 1658 H* (30-110) U/L Lipase 67453 H (23-300) U/L Assessment and Plan (1) Pancreatitis Narrative/Plan: Acute on chronic pancreatitis with history of pancreatic divisum cannot exclude an underlying genetic component Current Visit: Yes Status: Acute Code(s): K85.9 - ACUTE PANCREATITIS, UNSPECIFIED * DO NOT USE * SNOMED Code(s): 07531085 Plan: 1. Will advance diet if tolerated discharge. We'll assist in following up with [facility] for reevaluation for evaluation of genetic causes of acute recurrent pancreatitis. Assessment and plan a care discussed with Dr. Pizarro
--- NOTE | 2017-11-11 07:38 | DS ---
DISCHARGE SUMMARY ADMISSION: November 07, 2017. DATE OF DISCHARGE: November 09, 2017. FINAL DIAGNOSES: 1. Acute severe pancreatitis due to pancreatic divisum. 2. Depression not otherwise specified. 3. Leukocytosis secondary to pancreatitis. 4. Morbid obesity BMI 40.4. HOSPITAL COURSE: This patient had episodes of recurrent pancreatitis yet again presented with the same. Recovered nicely by the time of discharge. No further pain. Tolerating a diet. PHYSICAL EXAMINATION: On exam: Abdomen soft, nontender. CONSULTATION: Dr. Maria Teresa Pizarro. Care was discussed with the patient. DISCHARGE MEDICATIONS: 1. Zofran 4 mg q.8h p.r.n. 2. Vitamin D3 1000 units p.o. daily. 3. Celexa 20 mg p.o. daily. 4. [place] 7.5 b.i.d. p.r.n. 5. Ativan 1 mg daily p.r.n. DIET: Low-fat soft bland. FOLLOWUP: Follow up with Dr. Aaron in 1 week. Follow up with Dr. Mraia Teresa Pizarro on . Copy to Dr. Aaron. MMALEX / IJN: [id number] /
== END 2017-11-09 14:27 | disposition home or self-care (01) | DRG 439 ==
LOC: EC 19:40 → 5MS5E 22:53
PROVIDERS: ADMIT Hospitalist; ATTEND Hospitalist
DX: K85.90 Acute pancreatitis without necrosis or infection, unspecified (principal); Q45.3 Other congenital malformations of pancreas and pancreatic duct; Z68.41 Body mass index [BMI] 40.0-44.9, adult; E66.01 Morbid (severe) obesity due to excess calories; F32.9 Major depressive disorder, single episode, unspecified; K86.1 Other chronic pancreatitis; D72.829 Elevated white blood cell count, unspecified; Z79.899 Other long term (current) drug therapy; Z87.891 Personal history of nicotine dependence; Z88.8 Allergy status to other drugs, medicaments and biological substances; Z91.041 Radiographic dye allergy status; Z91.040 Latex allergy status; Z91.013 Allergy to seafood
CPT/HCPCS: 36415; 80048; 80053; 81001; 82150; 83690; 85025; 96374; 96375; 96376; 99284

== ENCOUNTER → 2017-12-02 | Outpatient (CLI) | payer MEDICAID, OTHER ==
[2017-12-02 08:52] LABS: Basophils % (A) 1 %; Eosinophils # (A) 0.1 k/uL (0-0.7); Eosinophils % (A) 2 %; HCT 41.7 % (34.0-46.0); HGB 13.8 gm/dL (11.4-16.0); Lymphocytes # (A) 2.7 k/uL (1.0-4.8); Lymphocytes % (A) 32 %; MCH 27.9 pg (25.0-35.0); MCHC 33.1 g/dL (31.0-37.0); MCV 84.3 fL (80.0-100.0); Mean Platelet Volume 6.9; Monocytes # (A) 0.5 k/uL (0-1.0); Monocytes % (A) 6 %; Neutrophils % (A) 59 %; Platelet Count 378 k/uL (150-450); RBC 4.95 m/uL (3.80-5.40); RDW 12.9 % (11.5-15.5); WBC 8.5 k/uL (3.8-10.6)
[2017-12-02 09:43] LABS: ALT 26 U/L (9-52); AST 16 U/L (14-36); Albumin 4.4 g/dL (3.5-5.0); Alkaline Phosphatase 81 U/L (38-126); Anion Gap 13 mmol/L; Blood Urea Nitrogen 15 mg/dL (7-17); Calcium 9.4 mg/dL (8.4-10.2); Carbon Dioxide 26 mmol/L (22-30); Chloride 103 mmol/L (98-107); Glucose 100 mg/dL (74-99); Potassium 4.7 mmol/L (3.5-5.1); Sodium 142 mmol/L (137-145); Total Bilirubin 0.3 mg/dL (0.2-1.3)
== END | disposition home or self-care (01) ==
LOC: LABWHC1 08:25
PROVIDERS: ATTEND Family Medicine
DX: K85.90 Acute pancreatitis without necrosis or infection, unspecified (principal)
CPT/HCPCS: 36415; 80053; 85025

== ENCOUNTER 2018-05-20 07:28 | Day surgery (SDC) | payer MEDICAID, OTHER ==
[2018-05-17 15:41] VITALS: BMI 42.0
[~2018-05-20 07:28] MED LIST: LACTATED RINGERS 1,000 ML IV SCH; LIDOCAINE 1% 20 ML VIAL (10MG/ML) FOR IV START INTRADERMA PRN
[2018-05-20 07:43] VITALS: RESP 16; TEMP 98.5
[2018-05-20] MEDS ORDERED: LIDOCAINE 1% INJ 10MG/ML (20 ML MDV) ONE (08:10)
[2018-05-20] MEDS ORDERED: PROPOFOL 10 MG/ML 20 ML VIAL IV ONE (08:10)
--- NOTE | 2018-05-20 08:20 | P.PCN ---
Date of Procedure: 05/20/18 Procedure(s) Performed: BRIEF HISTORY: Patient is a 38-year-old, pleasant,, white female, scheduled for an upper endoscopy as a part of follow-up of erosive esophagitis noted on a recent upper endoscopy done 3 months ago at [facility]. Patient has history of acute recurrent pancreatitis and she underwent EGD/EUS and was diagnosed with chronic pancreatitis. She was started on omeprazole 20 mg daily for erosive esophagitis and was advised to have a repeat follow-up upper endoscopy in 12 weeks. PROCEDURE PERFORMED: Esophagogastroduodenoscopy with biopsy. PREOPERATIVE DIAGNOSIS: GERD/erosive esophagitis. IV sedation per anesthesia. PROCEDURE: After informed consent was obtained, the patient was brought into the endoscopy unit. IV sedation was administered by Anesthesia under continuous monitoring. Initially the Olympus GIF-140 video endoscope was inserted into the mouth. Esophagus intubated without any difficulty. It was gradually advanced into the stomach and duodenum and carefully examined. The bulb and the second part of the duodenum appeared normal. The scope at this time was withdrawn to the stomach, adequately insufflated with air, and upon careful examination, mucosa of the antrum, body, cardia and the fundus appeared normal. The scope was then withdrawn into the esophagus. Small sliding Hiatal hernia noted. The GE junction was located at 35 cm from the incisors. There was a short 7 of Lagunas's esophagus exceeding 1 m proximal to the GE junction and this was biopsied. The rest of the esophagus appeared normal. There were no erosions or ulcerations seen and the patient tolerated the procedure well. IMPRESSION: 1. 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 Small hiatal hernia. RECOMMENDATIONS: The findings of this examination were discussed with the patient as well as a family. She was advised to follow with the biopsy results. If the biopsy confirms the presence of Lagunas's esophagus, she can have a repeat upper endoscopy in 2-3 years.
[2018-05-20 09:06] VITALS: BP 96/62; PULSE 75
== END 2018-05-20 09:20 | disposition home or self-care (01) ==
LOC: ORWHC2ENDO 07:28
PROVIDERS: ATTEND Internal Medicine Gastroenterology
DX: K21.0 Gastro-esophageal reflux disease with esophagitis (principal); K44.9 Diaphragmatic hernia without obstruction or gangrene; K22.70 Barrett's esophagus without dysplasia; Z87.891 Personal history of nicotine dependence; K86.1 Other chronic pancreatitis; Z88.8 Allergy status to other drugs, medicaments and biological substances; Z91.041 Radiographic dye allergy status; Z91.040 Latex allergy status; Z79.1 Long term (current) use of non-steroidal anti-inflammatories (NSAID); Z79.899 Other long term (current) drug therapy
CPT/HCPCS: 81025; 88305; 43239; J2001; J2704

== ENCOUNTER 2018-06-28 16:42 | Emergency (ER) | payer MEDICAID, OTHER ==
[2018-06-28] MEDS ORDERED: LIDOCAINE 1% INJ 10MG/ML (20 ML MDV) SQ STA (17:34)
[2018-06-28] MEDS ORDERED: DIPH,PERTUS(ACELL)TETVAC-LF 0.5 ML VIAL IM ONE (17:34)
--- NOTE | 2018-06-28 18:15 | XR ---
EXAMINATION TYPE: XR hand complete RT DATE OF EXAM: 06/28/2018 COMPARISON: NONE HISTORY: Laceration middle finger TECHNIQUE: 3 views FINDINGS: There is developmentally short metacarpals. I see no fracture nor dislocation. There are no erosions. The little finger appears intact. IMPRESSION: No acute bony abnormality seen. No fracture. No sign of a foreign body.
--- NOTE | 2018-06-28 20:28 | ED ---
General Adult HPI - General Chief complaint: Wound/Laceration Stated complaint: rt pinkie laceration Source: patient, RN notes reviewed, old records reviewed Mode of arrival: ambulatory Limitations: no limitations - History of Present Illness Initial comments: 38-year-old female patient with no pertinent past medical history presents to ED after sustaining a superficial laceration to the lateral aspect of her right fifth digit. Patient was washing a glass in the sink when it broke and she sustained a laceration. Patient does not believe that she has any pieces of glass in her finger. Patient has full range of motion. Patient denies any other injury. Patient denies other complaints. Systemic: Pt denies fatigue, myalgia, fever/chills, rash. Pt denies weakness, night sweats, weight loss. Neuro: Pt denies headache, visual disturbances, syncope or pre-syncope. HEENT: Pt denies ocular discharge or irritation, otalgia, rhinorrhea, pharyngitis or notable lymphadenopathy. Cardiopulmonary: Pt denies chest pain, SOB, heart palpitations, dyspnea on exertion. Abdominal/GI: Pt denies abdominal pain, n/v/d. : Pt denies dysuria, burning w/ urination, frequency/urgency. Denies new onset urinary or bowel incontinence. MSK: Pt denies myalgia, loss of strength or function in extremities. Neuro: Pt denies new onset weakness, paresthesias. - Related Data Home Medications Medication Instructions Recorded Confirmed Citalopram Hydrobromide 20 mg PO DAILY 11/08/17 05/20/18 [Citalopram HBr] LORazepam [Ativan] 1 mg PO DAILY PRN 11/08/17 05/20/18 Vitamin B Complex 1 each PO DAILY 05/17/18 05/20/18 Previous Rx's Medication Instructions Recorded Ondansetron Odt [Zofran ODT] 4 mg PO Q8HR PRN #10 tab 11/27/16 Allergies Allergy/AdvReac Type Severity Reaction Status Date / Time Iodinated Contrast- Oral and Allergy Severe Anaphylaxis Verified 06/28/18 17:20 IV Dye [Iodinated Contrast Media - IV Dye] latex Allergy Rash/Hives Verified 06/28/18 17:20 shellfish derived Allergy Anaphylaxis Verified 06/28/18 17:20 metoclopramide HCl AdvReac Facial Verified 06/28/18 17:20 [From Reglan] Twitching prochlorperazine edisylate AdvReac Facial Verified 06/28/18 17:20 [From Compazine] Twitching prochlorperazine maleate AdvReac Facial Verified 06/28/18 17:20 [From Compazine] Twitching promethazine HCl AdvReac Facial Verified 06/28/18 17:20 [From Phenergan] Twitching Review of Systems ROS Statement: Those systems with pertinent positive or pertinent negative responses have been documented in the HPI. ROS Other: All systems not noted in ROS Statement are negative. Past Medical History Additional Past Medical History / Comment(s): CHRONIC pancreatitis, pancreatic divis History of Any Multi-Drug Resistant Organisms: None Reported Past Surgical History: Uterine Ablation Additional Past Surgical History / Comment(s): laproscopies, multiple egd's and ercp's and ablation (1 years ago) Past Anesthesia/Blood Transfusion Reactions: No Reported Reaction Additional Past Anesthesia/Blood Transfusion Reaction / Comment(s): never had blood transfusion Past Psychological History: Anxiety, Depression Smoking Status: Former smoker Past Alcohol Use History: None Reported Past Drug Use History: None Reported - Past Family History Mother Family Medical History: No Reported History Father Family Medical History: No Reported History General Exam - General Exam Comments Initial Comments: Constitutional: NAD, AOX3, Pt has pleasant affect. HEENT: NC/AT, trachea midline, neck supple, no lymphadenopathy. Posterior pharynx non erythematous, without exudates. External ears appear normal, without discharge. Mucous membranes moist. Eyes PERRLA, EOM intact. There is no scleral icterus. No pallor noted. Cardiopulmonary: RRR, no murmurs, rubs or gallops, no JVD noted. Lungs CTAB in anterior and posterior robison. No peripheral edema. Abdominal exam: Abdomen soft and non-distended. Abdomen non-tender to palpation in all 4 quadrants. Bowel sounds active in LLQ. No hepatosplenomegaly. No ecchymosis Neuro: CN II-XII grossly intact. No nuchal rigidity. MSK: Approximately 4 cm U-shaped laceration on the lateral aspect of the fifth digit between PIP and DIP. Wound explored extensively, irrigated, no ligamentous or bony involvement, no foreign body. Patient has full range of motion of all digits. Sensation intact. Vascular intact, capillary refill less than 2 seconds, radial pulse +2 bilaterally. Patient has full range of motion of hand and wrist bilaterally. No posterior calf tenderness bilaterally , homans sign negative bilaterally. Posterior tibialis and radial pulse +2 bilaterally. Sensation intact in upper and lower extremities. Full active ROM in upper and lower extremities, 5/5 stregnth. Limitations: no limitations Course Vital Signs 06/28/18 06/28/18 17:18 20:42 Temperature 98.6 F 97.5 F L Pulse Rate 112 H 89 Respiratory 20 18 Rate Blood Pressure 124/63 132/74 O2 Sat by Pulse 96 96 Oximetry Procedures - Laceration Laceration #1 Consent Obtained: verbal consent Time Out Performed: Yes Indication: laceration Site: hand Size (cm): 4 Description: linear Depth: simple, single layer Anesthetic Used: lidocaine 1% Anesthesia Technique: local infiltration Amount (mls): 6 Pre-repair: wound explored, irrigated extensively, deep structures intact Size of Sutures: 5-0 Number of Sutures: 6 Technique: simple, interrupted Patient Tolerated Procedure: well, no complications Medical Decision Making - Medical Decision Making 38-year-old female patient with no pertinent past medical history presents to ED after sustaining a superficial laceration to the lateral aspect of her right fifth digit. Patient was washing a glass in the sink when it broke and she sustained a laceration. Patient does not believe that she has any pieces of glass in her finger. Patient has full range of motion. Patient denies any other injury. Physical exam displayed. Approximately 4 cm U-shaped laceration on the lateral aspect of the fifth digit between PIP and DIP. Wound explored extensively, irrigated, no ligamentous or bony involvement, no foreign body. Patient has full range of motion of all digits. Sensation intact. Vascular intact, capillary refill less than 2 seconds, radial pulse +2 bilaterally. No other acute pathology identified on physical exam. Plain films reveal any bony involvement or foreign body. Wound was closed with 6 primary simple interrupted sutures. Patient neurovascularly intact post procedure. Patient tolerated procedure well. Patient to follow-up PCP 1-2 days. Patient to return to ED in 10 days if sutures removed. Patient educated extensively about suture care as well as signs and symptoms of infection. Patient verbalized understanding. Patient to return to ED if any new signs or symptoms develop including signs of infection. Case discussed with Dr. Giraldo. Disposition Clinical Impression: Laceration Disposition: HOME SELF-CARE Condition: Good Instructions: Laceration (ED) Additional Instructions: Patient to adhere to previously discussed treatment plan and will take medication(s) as directed. Patient to follow up with PCP in 1-2 days. Patient to return to ED if symptoms do not improve. Is patient prescribed a controlled substance at d/c from ED?: No Referrals: Carter Dover MD [Primary Care Provider] - 1-2 days Time of Disposition: 20:27
[2018-06-28 20:43] VITALS: BP 132/74; PULSE 89; RESP 18; TEMP 97.5
== END 2018-06-28 20:42 | disposition home or self-care (01) ==
LOC: EC 16:42
DX: S61.216A Laceration without foreign body of right little finger without damage to nail, initial encounter (principal); F41.9 Anxiety disorder, unspecified; F32.9 Major depressive disorder, single episode, unspecified; Z87.891 Personal history of nicotine dependence; Z79.899 Other long term (current) drug therapy; Z91.041 Radiographic dye allergy status; Z91.040 Latex allergy status; Z91.013 Allergy to seafood; Z88.8 Allergy status to other drugs, medicaments and biological substances; Z23 Encounter for immunization; W25.XXXA Contact with sharp glass, initial encounter; Y93.G1 Activity, food preparation and clean up
CPT/HCPCS: 73130; 90715; 99283; 12002; 90471; J2001

== ENCOUNTER 2018-10-26 14:57 | Inpatient (IN) | payer MEDICAID, OTHER ==
[2018-10-26] MEDS ORDERED: SODIUM CHLORIDE 0.9% 1,000 ML IV STA ×2 (15:35→18:04)
[2018-10-26] MEDS ORDERED: HYDROmorphone 1 MG/ML 1 ML SYRINGE IVP STA ×2 (15:38→18:00)
--- NOTE | 2018-10-26 15:41 | ED ---
General Adult HPI - General Chief complaint: Abdominal Pain Stated complaint: pancreatitis Time Seen by Provider: 10/26/18 15:18 Source: patient Mode of arrival: ambulatory Limitations: no limitations - History of Present Illness Initial comments: Dictation was produced using [employer] dictation software. please excuse any grammatical, word or spelling errors. Chief Complaint: 38-year-old female past medical history of pancreatic divisum presents with epigastric abdominal pain. History of Present Illness: 38-year-old female. Patient has a past medical history of pancreatic divisum presents with epigastric abdominal pain. Patient has multiple episodes of pancreatitis secondary to her congenital disease. Patient was seen by myself late last month for this similar issue. Patient reports that there is no plans to have any sort of surgical intervention to reduce her pancreatic inflammation episodes. Patient states she is tolerating by mouth at this time however does not have any appetite. Fever, chills or night sweats. Patient states her symptoms are typical for pancreatitis. The ROS documented in this emergency department record has been reviewed and confirmed by me. Those systems with pertinent positive or negative responses have been documented in the HPI. All other systems are other negative and/or noncontributory. PHYSICAL EXAM: General Impression: Alert and oriented x3, acute distress secondary to pain HEENT: Normocephalic atraumatic, extra-ocular movements intact, pupils equal and reactive to light bilaterally, mucous membranes moist. Cardiovascular: Heart regular rate and rhythm, S1&S2 audible, no murmurs, rubs or gallops Chest: Lungs clear to auscultation bilaterally, no rhonchi, no wheeze, no rales Abdomen: Tenderness about the epigastric area Musculoskeletal: Pulses present and equal in all extremities, no peripheral edema Motor: no focal deficits noted Neurological: CN II-XII grossly intact, no focal motor or sensory deficits noted Skin: Intact with no visualized rashes Psych: Normal affect and mood ED course: 38-year-old female pancreatic divisum and multiple episodes of pancreatitis presents with epigastric abdominal pain. Vital signs upon arrival shows heart rate of 133, rest of vital signs within acceptable limits. Laboratory evaluation obtained. Leukocytosis of 14.5. Rest of CBC is unremarkable. Metabolic panel was obtained showing no acute processes. Lipase level is 3233. Urinalysis is unremarkable. Patient given IV analgesia with persistent symptoms. Patient given more IV analgesia. Patient given intravenous fluids. Patient case discussed with Dr. Love who is willing to accept admission. Patient be admitted for pancreatitis. That gastroenterology be on consult. Patient understandable agreeable to plan. - Related Data Home Medications Medication Instructions Recorded Confirmed Citalopram Hydrobromide 20 mg PO DAILY 11/08/17 10/26/18 [Citalopram HBr] L.acidoph,Paracasei, B.lactis 1 cap PO DAILY 09/30/18 10/26/18 [Probiotic] [place]-3 Fatty Acids/Fish Oil [Fish 1 cap PO DAILY 09/30/18 10/26/18 Oil 1,000 mg Softgel] Omeprazole 20 mg PO DAILY 09/30/18 10/26/18 Fish Oil/Dha/Epa [Fish Oil 1,200 1 cap PO DAILY 10/26/18 10/26/18 mg Fish Oil] Ondansetron [Zofran ODT] 4 mg PO Q8HR 10/26/18 10/26/18 traMADol HCL [Ultram] 50 mg PO Q6HR PRN 10/26/18 10/26/18 Allergies Allergy/AdvReac Type Severity Reaction Status Date / Time Iodinated Contrast- Oral and Allergy Severe Anaphylaxis Verified 10/26/18 16:22 IV Dye [Iodinated Contrast Media - IV Dye] latex Allergy Rash/Hives Verified 10/26/18 16:22 shellfish derived Allergy Anaphylaxis Verified 10/26/18 16:22 metoclopramide HCl AdvReac Facial Verified 10/26/18 16:22 [From Reglan] Twitching prochlorperazine edisylate AdvReac Facial Verified 10/26/18 16:22 [From Compazine] Twitching prochlorperazine maleate AdvReac Facial Verified 10/26/18 16:22 [From Compazine] Twitching promethazine HCl AdvReac Facial Verified 10/26/18 16:22 [From Phenergan] Twitching Review of Systems ROS Statement: Those systems with pertinent positive or pertinent negative responses have been documented in the HPI. ROS Other: All systems not noted in ROS Statement are negative. Past Medical History Additional Past Medical History / Comment(s): CHRONIC pancreatitis, hiatal hernia, Lagunas's esophagus, migraines. History of Any Multi-Drug Resistant Organisms: None Reported Past Surgical History: Uterine Ablation Additional Past Surgical History / Comment(s): Laparoscopy x 2 d/t endometriosis, uterine ablation, multiple egd's and ercp's, pancreatic stents- none in now because they fall out. Past Anesthesia/Blood Transfusion Reactions: No Reported Reaction Additional Past Anesthesia/Blood Transfusion Reaction / Comment(s): never had blood transfusion Past Psychological History: Anxiety, Depression Smoking Status: Former smoker - Past Family History Mother Family Medical History: No Reported History Additional Family Medical History / Comment(s): Mother is healthy. Father Family Medical History: No Reported History, Hypertension General Exam Limitations: no limitations Course Vital Signs 10/26/18 10/26/18 15:08 16:10 Temperature 98.5 F Pulse Rate 133 H 108 H Respiratory 20 20 Rate Blood Pressure 134/92 133/83 O2 Sat by Pulse 94 L 99 Oximetry Medical Decision Making - Lab Data Result diagrams: 10/26/18 16:14 10/26/18 16:14 Lab Results 10/26/18 10/26/18 10/26/18 Range/Units 16:14 16:14 16:14 WBC 14.5 H (3.8-10.6) k/uL RBC 4.65 (3.80-5.40) m/uL Hgb 13.1 (11.4-16.0) gm/dL Hct 38.6 (34.0-46.0) % MCV 82.9 (80.0-100.0) fL MCH 28.1 (25.0-35.0) pg MCHC 33.8 (31.0-37.0) g/dL RDW 13.0 (11.5-15.5) % Plt Count 356 (150-450) k/uL Neutrophils % 72 % Lymphocytes % 20 % Monocytes % 5 % Eosinophils % 1 % Basophils % 0 % Neutrophils # 10.4 H (1.3-7.7) k/uL Lymphocytes # 2.9 (1.0-4.8) k/uL Monocytes # 0.7 (0-1.0) k/uL Eosinophils # 0.2 (0-0.7) k/uL Basophils # 0.1 (0-0.2) k/uL Sodium 138 (137-145) mmol/L Potassium 3.9 (3.5-5.1) mmol/L Chloride 106 (98-107) mmol/L Carbon Dioxide 22 (22-30) mmol/L Anion Gap 10 mmol/L BUN 7 (7-17) mg/dL Creatinine 0.61 (0.52-1.04) mg/dL Est GFR (CKD-EPI)AfAm >90 (>60 ml/min/1.73 sqM) Est GFR (CKD-EPI)NonAf >90 (>60 ml/min/1.73 sqM) Glucose 89 (74-99) mg/dL Calcium 9.7 (8.4-10.2) mg/dL Total Bilirubin 0.6 (0.2-1.3) mg/dL AST 16 (14-36) U/L ALT 21 (9-52) U/L Alkaline Phosphatase 77 (38-126) U/L Total Protein 7.0 (6.3-8.2) g/dL Albumin 4.3 (3.5-5.0) g/dL Lipase 3233 H (23-300) U/L Urine Color Urine Appearance (Clear) Urine pH (5.0-8.0) Ur Specific [place] (1.001-1.035) Urine Protein (Negative) Urine Glucose (UA) (Negative) Urine Ketones (Negative) Urine Blood (Negative) Urine Nitrite (Negative) Urine Bilirubin (Negative) Urine Urobilinogen (<2.0) mg/dL Ur Leukocyte Esterase (Negative) Urine HCG, Qual Not Detected (Not Detectd) 10/26/18 Range/Units 16:14 WBC (3.8-10.6) k/uL RBC (3.80-5.40) m/uL Hgb (11.4-16.0) gm/dL Hct (34.0-46.0) % MCV (80.0-100.0) fL MCH (25.0-35.0) pg MCHC (31.0-37.0) g/dL RDW (11.5-15.5) % Plt Count (150-450) k/uL Neutrophils % % Lymphocytes % % Monocytes % % Eosinophils % % Basophils % % Neutrophils # (1.3-7.7) k/uL Lymphocytes # (1.0-4.8) k/uL Monocytes # (0-1.0) k/uL Eosinophils # (0-0.7) k/uL Basophils # (0-0.2) k/uL Sodium (137-145) mmol/L Potassium (3.5-5.1) mmol/L Chloride (98-107) mmol/L Carbon Dioxide (22-30) mmol/L Anion Gap mmol/L BUN (7-17) mg/dL Creatinine (0.52-1.04) mg/dL Est GFR (CKD-EPI)AfAm (>60 ml/min/1.73 sqM) Est GFR (CKD-EPI)NonAf (>60 ml/min/1.73 sqM) Glucose (74-99) mg/dL Calcium (8.4-10.2) mg/dL Total Bilirubin (0.2-1.3) mg/dL AST (14-36) U/L ALT (9-52) U/L Alkaline Phosphatase (38-126) U/L Total Protein (6.3-8.2) g/dL Albumin (3.5-5.0) g/dL Lipase (23-300) U/L Urine Color Yellow Urine Appearance Clear (Clear) Urine pH 6.0 (5.0-8.0) Ur Specific [place] 1.014 (1.001-1.035) Urine Protein Negative (Negative) Urine Glucose (UA) Negative (Negative) Urine Ketones Negative (Negative) Urine Blood Negative (Negative) Urine Nitrite Negative (Negative) Urine Bilirubin Negative (Negative) Urine Urobilinogen <2.0 (<2.0) mg/dL Ur Leukocyte Esterase Negative (Negative) Urine HCG, Qual (Not Detectd) Disposition Clinical Impression: Pancreatitis, Pancreatic divisum Disposition: ADMITTED IP TO THIS [facility] Condition: Fair Referrals: Carter Dover MD [Primary Care Provider] - 1-2 days Decision Time: 18:39
[2018-10-26 16:35] LABS: Appearance,Urine Clear (Clear); Basophils # (A) 0.1 k/uL (0-0.2); Basophils % (A) 0 %; Bilirubin,Urine Negative (Negative); Blood,Urine Negative (Negative); Color,Urine Yellow; Eosinophils # (A) 0.2 k/uL (0-0.7); Eosinophils % (A) 1 %; Glucose,Urine (UA) Negative (Negative); HCT 38.6 % (34.0-46.0); HGB 13.1 gm/dL (11.4-16.0); Ketones,Urine Negative (Negative); Leukocyte Esterase,Urine Negative (Negative); Lymphocytes # (A) 2.9 k/uL (1.0-4.8); Lymphocytes % (A) 20 %; MCH 28.1 pg (25.0-35.0); MCHC 33.8 g/dL (31.0-37.0); MCV 82.9 fL (80.0-100.0); Mean Platelet Volume 7.2; Monocytes # (A) 0.7 k/uL (0-1.0); Monocytes % (A) 5 %; Neutrophils # (A) 10.4 k/uL (1.3-7.7); Neutrophils % (A) 72 %; Nitrite,Urine Negative (Negative); Platelet Count 356 k/uL (150-450); Protein,Urine Negative (Negative); RBC 4.65 m/uL (3.80-5.40); Specific Gravity,Urine 1.014 (1.001-1.035); Urobilinogen,Urine <2.0 mg/dL (<2.0); WBC 14.5 k/uL (3.8-10.6)
[2018-10-26 16:44] LABS: ALT 21 U/L (9-52); AST 16 U/L (14-36); Albumin 4.3 g/dL (3.5-5.0); Alkaline Phosphatase 77 U/L (38-126); Anion Gap 10 mmol/L; Blood Urea Nitrogen 7 mg/dL (7-17); Calcium 9.7 mg/dL (8.4-10.2); Carbon Dioxide 22 mmol/L (22-30); Chloride 106 mmol/L (98-107); Glucose 89 mg/dL (74-99); Potassium 3.9 mmol/L (3.5-5.1); Sodium 138 mmol/L (137-145); Total Bilirubin 0.6 mg/dL (0.2-1.3)
[2018-10-26 16:52] LABS: Lipase 3233 U/L (23-300)
--- NOTE | 2018-10-26 17:46 | XR ---
EXAMINATION TYPE: XR KUB DATE OF EXAM: 10/26/2018 COMPARISON: 09/30/2018 HISTORY: Abdominal pain TECHNIQUE: 2 views upright FINDINGS: There is no sign of intestinal obstruction or pneumoperitoneum. Fecal pattern is normal. Vanna ng bases are clear. There are no pathologic calcifications. IMPRESSION: Nonacute abdomen. No change.
[2018-10-26] MEDS ORDERED: ACETAMINOPHEN TAB 325 MG TAB PO PRN (18:39)
[2018-10-26] MEDS ORDERED: NALOXONE 0.4 MG/ML 1 ML VIAL IV PRN (18:39)
[2018-10-26] MEDS: SODIUM CHLORIDE 0.9% 1,000 ML IV SCH (19:12)
[2018-10-26] MEDS: ONDANSETRON 4 MG/2 ML VIAL IVP PRN (20:30)
[2018-10-26] MEDS ORDERED: traMADol 50 MG TAB PO PRN (22:39)
[2018-10-26] MEDS: HYDROmorphone 0.5 MG/0.5 ML SYRINGE IVP PRN (22:40)
--- NOTE | 2018-10-26 23:42 | P.HPIM ---
History of Present Illness H&P Date: 10/26/18 Chief Complaint: acute pancreatitis, pancreatic Divisum, intractable nausea and v 58-year-old female one of Dr. Garcia's patient with past medical history of recurrent pancreatitis, abnormality of the pancreatic area with pancreatic divisum, recurrent admission to the hospital intractable abdominal pain and recurrent pancreatitis with worsening lipase and amylase every few weeks. Patient was hospitalized last in 09/30/2018 for the recurrent abdominal pain with intractable nausea vomiting acute pancreatitis was evaluated seen by gastroenterology her lipase was 1300 at the time with conservative management and pain management hydration and GI prophylaxis patient ended up improving was seen and evaluated by gastroenterology and decid not to do any invasive procedure. Patient was discharged home to follow with her primary care in the following week. Has been doing well until the last 48 hours. Admission when developed to have worsening nausea vomiting abdominal pain not been able to keep any food or fluid down ended up coming to the emergency department at [facility] her lipase was 3233 mildly elevated white blood cell and low-grade temperature with her intractable nausea vomiting patient was started on IV hydration pain management and admitted to the hospital shortly after with above problem. Review of Systems CONSTITUTIONAL: Well-developed no acute respiratory distress. EYES: No icterus sclerae, no conjunctivitis. EARS, NOSE, MOUTH, THROAT, and FACE: No sore throat, lymphadenopathy, carotid bruits or deformity. RESPIRATORY: No SOB cough or wheezes. CARDIOVASCULAR: No CP, Palpitation, PND, Orthopnea, or angina. GASTROINTESTINAL: positive abdominal pain with nausea and vomiting, no Diarrhea or constipation, No GI Bleed, no distention or masses. GENITOURINARY: Negative for Hematuria or UTI, no kidney stones. INTEGUMENT/BREAST: Negative for any muscular injury with mild osteoarthritis.. HEMATOLOGIC/LYMPHATIC: Negative for bleed or purpura. MUSCULOSKELTAL: Negative for Myalgia or arthralgia. NEURLOGICAL: No LOC, Sz or syncope, blurred vision dizziness or abnormality.. BEHAVIORAL/PSYCH: Negative. ENDOCRINE: Negative. Past Medical History Past Medical History: GERD/Reflux Additional Past Medical History / Comment(s): CHRONIC pancreatitis, hiatal hernia, Lagunas's esophagus, migraines. History of Any Multi-Drug Resistant Organisms: None Reported Past Surgical History: Uterine Ablation Additional Past Surgical History / Comment(s): Laparoscopy x 2 d/t endometriosis, uterine ablation, multiple egd's and ercp's, pancreatic stents- none in now because they fall out. Past Anesthesia/Blood Transfusion Reactions: No Reported Reaction Additional Past Anesthesia/Blood Transfusion Reaction / Comment(s): never had blood transfusion Past Psychological History: Anxiety, Depression Additional Psychological History / Comment(s): Pt resides with her spouse and 2 children at home and another child that is in the [place]. Pt is independent. 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 Smoking Status: Former smoker Past Alcohol Use History: None Reported Additional Past Alcohol Use History / Comment(s): PT STARTED SMOKING IN 1995 AND QUIT SMOKING 2003 Past Drug Use History: None Reported - Past Family History Mother Family Medical History: No Reported History Additional Family Medical History / Comment(s): Mother is healthy. Father Family Medical History: Hypertension Medications and Allergies Home Medications Medication Instructions Recorded Confirmed Type Citalopram Hydrobromide 20 mg PO DAILY 11/08/17 10/26/18 History [Citalopram HBr] L.acidoph,Paracasei, B.lactis 1 cap PO DAILY 09/30/18 10/26/18 History [Probiotic] [place]-3 Fatty Acids/Fish Oil [Fish 1 cap PO DAILY 09/30/18 10/26/18 History Oil 1,000 mg Softgel] Omeprazole 20 mg PO DAILY 09/30/18 10/26/18 History Fish Oil/Dha/Epa [Fish Oil 1,200 1 cap PO DAILY 10/26/18 10/26/18 History mg Fish Oil] Ondansetron [Zofran ODT] 4 mg PO Q8HR 10/26/18 10/26/18 History traMADol HCL [Ultram] 50 mg PO Q6HR PRN 10/26/18 10/26/18 History Allergies Allergy/AdvReac Type Severity Reaction Status Date / Time Iodinated Contrast- Oral and Allergy Severe Anaphylaxis Verified 10/26/18 16:22 IV Dye [Iodinated Contrast Media - IV Dye] latex Allergy Rash/Hives Verified 10/26/18 16:22 shellfish derived Allergy Anaphylaxis Verified 10/26/18 16:22 metoclopramide HCl AdvReac Facial Verified 10/26/18 16:22 [From Reglan] Twitching prochlorperazine edisylate AdvReac Facial Verified 10/26/18 16:22 [From Compazine] Twitching prochlorperazine maleate AdvReac Facial Verified 10/26/18 16:22 [From Compazine] Twitching promethazine HCl AdvReac Facial Verified 10/26/18 16:22 [From Phenergan] Twitching Physical Exam Vitals: Vital Signs Temp Pulse Pulse Resp BP BP Pulse Ox 10/26/18 21:50 97.9 F 105 H 17 131/84 96 10/26/18 21:36 97.6 F 103 H 20 105/72 10/26/18 20:00 98 20 114/58 99 10/26/18 18:30 103 H 20 133/83 99 10/26/18 16:10 108 H 20 133/83 99 10/26/18 15:08 98.5 F 133 H 20 134/92 94 L Intake and Output 10/26/18 10/26/18 10/26/18 06:59 14:59 22:59 Other: # Voids 1 Weight 111.13 kg General Appearance: Alert, cooperative, no distress, appears stated age. Neck HEENT: Supple, no lymphadenopathy, no thyroid enlargement, no carotid bruits.severe dry mucosa Lungs: Clear to auscultation without crackles or wheezes no rhonchi, no deformity. Chest Wall: Chest wall normal expansion with deep inspiration no tenderness and no deformity was found on exam, no costochondral pain or discomfort. Heart: Regular rate and rhythm, S1, S2 normal, no murmur, rub or gallop. Back: Symmetric, no curvature, ROM normal, no CVA tenderness. Abdomen: Soft positive bowel sounds significant tenderness and discomfort with no rebound or rigidity in the midepigastric area no sign of bruise or any other abnormality. Extremities: Extremities normal, atraumatic, no cyanosis or edema. Pulses: 2+ and symmetric. Skin: Skin color, texture, tugor normal, no rashes or lesions. Neurologic: Alert oriented x3 cranial nerves II through XII intact, no motor deficit, no abnormal balance or gait. Results CBC & Chem 7: 10/26/18 16:14 10/27/18 07:25 Labs: Abnormal Lab Results - Last 24 Hours (Table) 10/26/18 10/26/18 Range/Units 16:14 16:14 WBC 14.5 H (3.8-10.6) k/uL Neutrophils # 10.4 H (1.3-7.7) k/uL Lipase 3233 H (23-300) U/L Thrombosis Risk Factor Assmnt - Choose All That Apply Any of the Below Risk Factors Present?: No Other Risk Factors: No Other congenital or acquired thrombophilia - If yes, enter type in comment: No Thrombosis Risk Factor Assessment Level: Very Low Risk Assessment and Plan Assessment: 1 severe acute pancreatitis: Patient be hospitalized will consult gastroenterology continue fluid resuscitation continue pain management repeat lipase and amylase and liver function test next 24 hours. 2 severe dehydration: Continue IV hydration IV fluid for now. 3 intractable nausea vomiting: Continue patient on PPI also Zofran as needed basis. 4 chronic depression: Has been on citalopram 20 mg a day. 5 severe GERD: Has been on omeprazole 20 mg daily. 6 chronic pain management: Has been on tramadol 50 mg 1/2 every 6 hours as needed continue medication. 7 DVT prophylaxis: Patient will have early mobilization and knee-high LEONARDO hose. 8 GI prophylaxis: Patient is on omeprazole. CODE STATUS: Full code. Admit to inpatient status for more than 2 nights.
[2018-10-27] MEDS: ONDANSETRON ODT 4 MG TAB PO SCH ×4 (01:10→22:54)
[2018-10-27] MEDS: HYDROmorphone 0.5 MG/0.5 ML SYRINGE IVP PRN ×4 (02:31→21:26)
[2018-10-27] MEDS: SODIUM CHLORIDE 0.9% 1,000 ML IV SCH ×4 (04:34→15:35)
[2018-10-27] MEDS: ONDANSETRON 4 MG/2 ML VIAL IVP PRN ×2 (05:14→20:30)
[2018-10-27] MEDS: CITALOPRAM HYDROBROMIDE 20 MG TAB PO SCH (07:52)
[2018-10-27] MEDS: PANTOPRAZOLE 40 MG/10 ML VIAL IV SCH (07:52)
[2018-10-27 08:01] LABS: ALT 20 U/L (9-52); AST 13 U/L (14-36); Albumin 3.5 g/dL (3.5-5.0); Alkaline Phosphatase 66 U/L (38-126); Amylase 122 U/L (30-110); Anion Gap 7 mmol/L; Blood Urea Nitrogen 7 mg/dL (7-17); Calcium 8.6 mg/dL (8.4-10.2); Carbon Dioxide 24 mmol/L (22-30); Chloride 108 mmol/L (98-107); Glucose 86 mg/dL (74-99); Lipase 333 U/L (23-300); Potassium 4.1 mmol/L (3.5-5.1); Sodium 139 mmol/L (137-145); Total Bilirubin 0.6 mg/dL (0.2-1.3); Total Protein 5.8 g/dL (6.3-8.2)
[2018-10-27] MEDS ORDERED: NON-FORMULARY DRUG (L.Acidoph,Paracasei, B.Lactis [Probiotic] 1 CAP) PO SCH (09:00)
[2018-10-27] MEDS ORDERED: NON-FORMULARY DRUG (Omeprazole [Omeprazole] 20 MG) PO SCH (09:00)
--- NOTE | 2018-10-27 12:00 | P.CONS ---
History of Present Illness - Reason for Consult Consult date: 10/27/18 Pancreatitis Requesting physician: Christopher Love - Chief Complaint Abdominal pain - History of Present Illness 38-year-old seen with a history of pancreatic divisum recurrent pancreatitis as recent as a month ago admitted with acute abdominal pain nausea vomiting and elevated pancreatic enzymes consistent with acute pancreatitis. Lipase 3233 presently 333. Amylase 122. LFTs within normal limits. HCG not detected. No fevers. White count 14.5. Hemoglobin 13.1. KUB unremarkable. Patient underwent EUS/EGD evaluation at [facility] last February with findings of erosive esophagitis and chronic pancreatitis this was followed up by outpatient EGD with Dr. Pizarro in May 2018. Findings of EGD short segment of Bhagat's esophagus small hiatal hernia. She seen a specialist in [place] several years ago regards to her pancreatic divisum treatment options. Last follow with [facility] specialist was in the fall. Review of Systems Constitutional: Denies fever, chills, sweats, weight gain, or loss. HEENT: Negative for migraines, blurred vision or loss, earaches, drainage, tinnitus, oral mucosal lesions, dysphagia, or odynophagia. CARDIAC: Negative for chest pain, arrhythmias, or palpitation. RESPIRATORY: Negative for shortness of breath, hemoptysis, cough, or sputum production. GI: See HPI for pertinent findings. : Negative for hematuria, urgency, frequency, polyuria, or dysuria. GYNc: Denies possibility of . Negative vaginal discharge. MUSCULOSKELETAL: Negative for muscle aches, swelling, arthritis, and arthralgias. NEUROLOGIC: Negative for stroke or TIA. ENDOCRINE: Negative for thyroid problems. SKIN: Negative for rash or itching. PSYCHIATRIC: Negative history for depression and anxiety Past Medical History Past Medical History: GERD/Reflux Additional Past Medical History / Comment(s): CHRONIC pancreatitis, hiatal hernia, Bhagat's esophagus, migraines. History of Any Multi-Drug Resistant Organisms: None Reported Past Surgical History: Uterine Ablation Additional Past Surgical History / Comment(s): Laparoscopy x 2 d/t endometriosis, uterine ablation, multiple egd's and ercp's, pancreatic stents- none in now because they fall out. Past Anesthesia/Blood Transfusion Reactions: No Reported Reaction Additional Past Anesthesia/Blood Transfusion Reaction / Comm: never had blood transfusion Past Psychological History: Anxiety, Depression Additional Psychological History / Comment(s): Pt resides with her spouse and 2 children at home and another child that is in the [place]. Pt is independent. 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. Smoking Status: Former smoker Past Alcohol Use History: None Reported Additional Past Alcohol Use History / Comment(s): PT STARTED SMOKING IN 1995 AND QUIT SMOKING 2003 Past Drug Use History: None Reported - Past Family History Mother Family Medical History: No Reported History Additional Family Medical History / Comment(s): Mother is healthy. Father Family Medical History: Hypertension Medications and Allergies Home Medications Medication Instructions Recorded Confirmed Type Citalopram Hydrobromide 20 mg PO DAILY 11/08/17 10/26/18 History [Citalopram HBr] L.acidoph,Paracasei, B.lactis 1 cap PO DAILY 09/30/18 10/26/18 History [Probiotic] Yulan-3 Fatty Acids/Fish Oil [Fish 1 cap PO DAILY 09/30/18 10/26/18 History Oil 1,000 mg Softgel] Omeprazole 20 mg PO DAILY 09/30/18 10/26/18 History Fish Oil/Dha/Epa [Fish Oil 1,200 1 cap PO DAILY 10/26/18 10/26/18 History mg Fish Oil] Ondansetron [Zofran ODT] 4 mg PO Q8HR 10/26/18 10/26/18 History traMADol HCL [Ultram] 50 mg PO Q6HR PRN 10/26/18 10/26/18 History Allergies Allergy/AdvReac Type Severity Reaction Status Date / Time Iodinated Contrast- Oral and Allergy Severe Anaphylaxis Verified 10/26/18 16:22 IV Dye [Iodinated Contrast Media - IV Dye] latex Allergy Rash/Hives Verified 10/26/18 16:22 shellfish derived Allergy Anaphylaxis Verified 10/26/18 16:22 metoclopramide HCl AdvReac Facial Verified 10/26/18 16:22 [From Reglan] Twitching prochlorperazine edisylate AdvReac Facial Verified 10/26/18 16:22 [From Compazine] Twitching prochlorperazine maleate AdvReac Facial Verified 10/26/18 16:22 [From Compazine] Twitching promethazine HCl AdvReac Facial Verified 10/26/18 16:22 [From Phenergan] Twitching Physical Exam Vitals: Vital Signs Temp Pulse Pulse Resp BP BP Pulse Ox 10/27/18 07:00 97.9 F 86 16 107/69 97 10/27/18 02:30 97.7 F 79 18 104/71 95 10/27/18 00:31 17 10/26/18 21:50 97.9 F 105 H 17 131/84 96 10/26/18 21:36 97.6 F 103 H 20 105/72 10/26/18 20:00 98 20 114/58 99 10/26/18 18:30 103 H 20 133/83 99 10/26/18 16:10 108 H 20 133/83 99 10/26/18 15:08 98.5 F 133 H 20 134/92 94 L Intake and Output 10/26/18 10/27/18 10/27/18 22:59 06:59 14:59 Intake Total 500 Balance 500 Intake: Intake, IV Titration 300 Amount Sodium Chloride 0.9% 1, 300 000 ml @ 100 mls/hr IV . Q10H [facility] Rx#:[id number] Oral 200 Other: Voiding Method Toilet # Voids 1 1 Weight 111.13 kg General appearance: The patient is alert, oriented, in no acute distress. HET: Head is normocephalic and atraumatic. Pupils are equal and reactive. Oropharynx is clear without lesions. Neck: Supple without lymphadenopathy. Trachea midline. Heart: S1 S2. Regular rate and rhythm. Lungs: No crackles or wheezes are heard. Abdomen: Soft, mild midepigastric upper abdominal tenderness, nondistended with bowel sounds. No peritoneal signs. No palpable organomegaly or masses. Extremities: Normal skin color and turgor. No cyanosis, rash, ulceration, clubbing, or edema. Radial and pedal pulses are 2/4 bilaterally. Neurological: No focal deficits. Strength and sensation are grossly intact. Results CBC & Chem 7: 10/26/18 16:14 10/27/18 07:25 Labs: Abnormal Lab Results - Last 24 Hours (Table) 10/26/18 10/26/18 10/27/18 Range/Units 16:14 16:14 07:25 WBC 14.5 H (3.8-10.6) k/uL Neutrophils # 10.4 H (1.3-7.7) k/uL Chloride 108 H (98-107) mmol/L AST 13 L (14-36) U/L Total Protein 5.8 L (6.3-8.2) g/dL Amylase 122 H (30-110) U/L Lipase 3233 H 333 H (23-300) U/L Abdominal x-ray: report reviewed (Dr. Mccyo) Assessment and Plan (1) Pancreatitis Narrative/Plan: 38-year-old female with a history of acute on chronic pancreatitis underlying pancreatic divisum admitted with acute on chronic relapsing pancreatitis. Current Visit: Yes Status: Acute Code(s): K85.9 - ACUTE PANCREATITIS, UNSPECIFIED * DO NOT USE * SNOMED Code(s): 21881366 (2) Pancreatic divisum Current Visit: Yes Status: Acute Code(s): Q45.3 - OTH CONGENITAL MALFORMATIONS OF PANCREAS AND PANCREATIC DUCT SNOMED Code(s): 17107397 (3) Barretts esophagus Narrative/Plan: Status post EGD May 2018 biopsies negative for dysplasia maintained on omeprazole 20 mg daily. Current Visit: Yes Status: Acute Code(s): K22.70 - BHAGAT'S ESOPHAGUS WITHOUT DYSPLASIA SNOMED Code(s): 511879529 Plan: 1. CT A/P w/ contrast r/o pseudocyst and or other abdominal pathology. IV hydration. Supportive measures. Protonix 40 mg IV daily. Daily monitoring of chemistries pancreatic enzymes. Patient was advised to follow with her [facility] specialist to discuss possible surgical options for her pancreatic divisum patient verbalized she would like to stay local. Patient is also contemplating whether or not to follow back up with her [place] specialist who she saw several years ago. 2. Advance diet as tolerated. For now patient is requesting to stand clear liquids. Plan of care was discussed with Dr. Love. Thank you for this kind referral and the opportunity to participate in the care of your patient. This consultation was discussed with Dr. Mccoy. The impression and plan of care have been directed as dictated.
--- NOTE | 2018-10-27 13:49 | CT ---
EXAMINATION TYPE: CT abdomen pelvis wo con DATE OF EXAM: 10/27/2018 COMPARISON: 06/19/2011 HISTORY: Pancreatitis, r/o pseudocyst CT DLP: 1055.4 mGycm Automated exposure control for dose reduction was used. TECHNIQUE: Helical acquisition of images was performed from the lung bases through the pelvis. FINDINGS: LUNG BASES: Patchy bibasilar airspace disease is seen with a dependent predominance. Very small hiata l hernia is noted in the posterior mediastinum. LIVER/GB: Unremarkable unenhanced morphology of the liver. No radiopaque gallstones. PANCREAS: Only very subtle inflammatory fat stranding is seen at the inferior margin of the head of t he pancreas and there is a suboptimal fat plane between the head of the pancreas and duodenum. Very s mall peripancreatic lymph nodes are seen at the inferior margin of the pancreas on image 43. No perip ancreatic fluid collection. Although there is no contrast there is no gross evidence of splenic arter ial pseudoaneurysm. Evaluation for splenic vein or splenoportal confluence thrombosis cannot BE perfo rmed without contrast. Additionally enhancement of the pancreas in evaluation for necrotizing pancrea titis can also not be performed without contrast. SPLEEN: No significant abnormality is seen. ADRENALS: No significant abnormality is seen. KIDNEYS: No hydronephrosis or nephrolithiasis. FREE AIR: No free air is visualized ADENOPATHY: No greater than 1 cm short axis lymph node within the abdomen or pelvis. REPRODUCTIVE ORGANS: There is a small amount of free fluid in the adnexa and posterior cul-de-sac, li jarret physiologic in nature. URINARY BLADDER: Unremarkable OSSEOUS STRUCTURES: Minimal degenerative changes of the spine. BOWEL: There is submucosal fat deposition in the cecum, ascending colon and terminal ileum. No dilate d large or small bowel. No inflammatory fat stranding surrounding the bowel. OTHER: Mild diastases recti and a small fat filled umbilical hernia are noted. IMPRESSION: 1. THERE IS ONLY VERY SUBTLE QUESTIONABLE PERIPANCREATIC FAT STRANDING. NO FLUID COLLECTION TO SUGGES T PERIPANCREATIC ABSCESS, ACUTE NECROTIC FLUID COLLECTION, NOR PSEUDOCYST. 2. SUBMUCOSAL FAT DEPOSITION OF THE TERMINAL ILEUM, CECUM AND ASCENDING COLON SUGGESTING CHRONIC COLI TIS. CROHN'S DISEASE COULD BE CONSIDERED. NO ACTIVE INFLAMMATORY CHANGE. 3. PREDOMINANTLY DEPENDENT PATCHY BILATERAL BASILAR OPACITIES OF THE LUNGS THAT MAY REPRESENT ATELECT ASIS OR PNEUMONIA.
--- NOTE | 2018-10-27 15:15 | P.PN ---
Subjective Progress Note Date: 10/27/18 38-year-old female one of Dr. Garcia's patient with past medical history of recurrent pancreatitis, abnormality of the pancreatic area with pancreatic divisum, recurrent admission to the hospital intractable abdominal pain and recurrent pancreatitis with worsening lipase and amylase every few w eeks. Patient was hospitalized last in 09/30/2018 for the recurrent abdominal pain with intractable nausea vomiting acute pancreatitis was evaluated seen by gastroenterology her lipase was 1300 at the time with conservative management and pain management hydration and GI prophylaxis patient ended up improving was seen and evaluated by gastroenterology and decid not to do any invasive procedure. Patient was discharged home to follow with her primary care in the following week. Has been doing well until the last 48 hours. Admission when developed to have worsening nausea vomiting abdominal pain not been able to keep any food or fluid down ended up coming to the emergency department at [facility] her lipase was 3233 mildly elevated white blood cell and low-grade temperature with her intractable nausea vomiting patient was started on IV hydration pain management and admitted to the hospital shortly after with above problem. 10/27: Repeat lipase is 333, amylase 122. Patient has been afebrile, heart rate 86, blood pressure 107/69, pulse ox 97% on room air. Patient is currently on a clear liquid diet. Patient has been seen by GI with recommendations for a CAT scan of the abdomen and pelvis with contrast, continue supportive measures and Protonix. Patient was advised to follow-up with her physician in [facility] to discuss possible surgical options. GI has cleared her to advance diet as tolerated. She is currently tolerating a clear liquid diet. CAT scan of the abdomen and pelvis reveals subtle questionable. Pancreatic fat stranding. No fluid collection to suggest. Pancreatic abscess, acute and chronic fluid collection nor pseudoptosis. Submucosal fat deposition of the terminal ileum, cecum, ascending colon suggest chronic colitis. Crohn's disease could be considered. No active inflammatory change. Predominantly dependent patchy bilateral basilar opacities of the lungs may represent atelectasis or pneumonia. Incentive spirometry will be added. Review of Systems CONSTITUTIONAL: Denies fever, denies chills. EYES: No icterus sclerae, no conjunctivitis. EARS, NOSE, MOUTH, THROAT, and FACE: No sore throat, lymphadenopathy, carotid bruits or deformity. RESPIRATORY: No SOB cough or wheezes. CARDIOVASCULAR: No CP, Palpitation, PND, Orthopnea, or angina. GASTROINTESTINAL: positive abdominal pain with nausea and vomiting, no Diarrhea or constipation, No GI Bleed, no distention or masses. GENITOURINARY: Negative for Hematuria or UTI, no kidney stones. INTEGUMENT/BREAST: Negative for any muscular injury with mild osteoarthritis.. HEMATOLOGIC/LYMPHATIC: Negative for bleed or purpura. MUSCULOSKELTAL: Negative for Myalgia or arthralgia. NEURLOGICAL: No LOC, Sz or syncope, blurred vision dizziness or abnormality.. BEHAVIORAL/PSYCH: Negative. ENDOCRINE: Negative. Objective - Vital Signs Vital signs: Vital Signs Temp 97.9 F 10/27/18 07:00 Pulse 86 10/27/18 07:00 Resp 16 10/27/18 07:00 BP 107/69 10/27/18 07:00 Pulse Ox 97 10/27/18 07:00 Intake & Output 10/26/18 10/27/18 10/27/18 18:59 06:59 18:59 Intake Total 500 Balance 500 Weight 111.13 kg Intake: Intake, IV Titration 300 Amount Sodium Chloride 0.9% 1, 300 000 ml @ 100 mls/hr IV . Q10H [facility] Rx#:[id number] Oral 200 Other: Voiding Method Toilet # Voids 1 - Exam General Appearance: Alert, cooperative, no distress, appears stated age. Neck HEENT: Supple, no lymphadenopathy, no thyroid enlargement, no carotid bruits.severe dry mucosa Lungs: Clear to auscultation without crackles or wheezes no rhonchi, no deformity. Chest Wall: Chest wall normal expansion with deep inspiration no tenderness and no deformity was found on exam, no costochondral pain or discomfort. Heart: Regular rate and rhythm, S1, S2 normal, no murmur, rub or gallop. Back: Symmetric, no curvature, ROM normal, no CVA tenderness. Abdomen: Soft positive bowel sounds tenderness and discomfort with no rebound or rigidity in the midepigastric area no sign of bruise or any other abnormality. Extremities: Extremities normal, atraumatic, no cyanosis or edema. Pulses: 2+ and symmetric. Skin: Skin color, texture, tugor normal, no rashes or lesions. Neurologic: Alert oriented x3 cranial nerves II through XII intact, no motor deficit, no abnormal balance or gait. - Labs CBC & Chem 7: 10/26/18 16:14 10/27/18 07:25 Labs: Abnormal Lab Results - Last 24 Hours (Table) 10/26/18 10/26/18 10/27/18 Range/Units 16:14 16:14 07:25 WBC 14.5 H (3.8-10.6) k/uL Neutrophils # 10.4 H (1.3-7.7) k/uL Chloride 108 H (98-107) mmol/L AST 13 L (14-36) U/L Total Protein 5.8 L (6.3-8.2) g/dL Amylase 122 H (30-110) U/L Lipase 3233 H 333 H (23-300) U/L Assessment and Plan Plan: 1 severe acute pancreatitis. Consult with GI appreciated. CAT scan as above. Continue IV fluids, pain medications, repeat lipase in the morning. 2 severe dehydration: Continue IV hydration IV fluid for now. 3 intractable nausea vomiting: Continue patient on PPI also Zofran as needed basis. 4 chronic depression: Has been on citalopram 20 mg a day. 5 severe GERD: Has been on omeprazole 20 mg daily. 6 chronic pain management: Has been on tramadol 50 mg every 6 hours as needed continue medication. 7 DVT prophylaxis: Patient will have early mobilization and knee-high LEONARDO hose. CODE STATUS: Full code. Discharge plan: Return home Impression and plan of care have been directed as dictated by the signing physician. Nallely Peterson nurse practitioner acting as scribe for signing physician.
[2018-10-28] MEDS: SODIUM CHLORIDE 0.9% 1,000 ML IV SCH ×2 (00:56→09:17)
[2018-10-28] MEDS: HYDROmorphone 0.5 MG/0.5 ML SYRINGE IVP PRN ×2 (03:36→09:12)
[2018-10-28 07:54] VITALS: RESP 16
[2018-10-28] MEDS: CITALOPRAM HYDROBROMIDE 20 MG TAB PO SCH (09:13)
[2018-10-28] MEDS: ONDANSETRON ODT 4 MG TAB PO SCH ×2 (09:13→16:45)
[2018-10-28] MEDS: PANTOPRAZOLE 40 MG/10 ML VIAL IV SCH (09:16)
--- NOTE | 2018-10-28 10:08 | P.PN ---
Subjective Progress Note Date: 10/28/18 Principal diagnosis: Pancreatitis pancreatic divisum Still reports upper abdominal discomfort more so on the right upper quadrant. Afebrile. Lipase normalized. CT Abdomen no evidence of abscess pseudocyst or necrosis. Objective - Vital Signs Vital signs: Vital Signs Temp 98.0 F 10/28/18 07:00 Pulse 87 10/28/18 07:00 Resp 16 10/28/18 07:00 BP 112/71 10/28/18 07:00 Pulse Ox 95 10/28/18 07:00 Intake & Output 10/27/18 10/28/18 10/28/18 18:59 06:59 18:59 Intake Total 1300 Balance 1300 Intake: Intake, IV Titration 1000 Amount Sodium Chloride 0.9% 1, 1000 000 ml @ 100 mls/hr IV . Q10H [facility] Rx#:[id number] Blood Product 300 Other: Voiding Method Toilet Toilet # Voids 3 1 - Exam General appearance: The patient is alert, oriented, in no acute distress. HET: Head is normocephalic and atraumatic. Pupils are equal and reactive. Oropharynx is clear without lesions. Neck: Supple without lymphadenopathy. Trachea midline. Heart: S1 S2. Regular rate and rhythm. Lungs: No crackles or wheezes are heard. Abdomen: Soft, tenderness to the right upper quadrant midepigastric, nondistended with bowel sounds. No peritoneal signs. No palpable organomegaly or masses. Extremities: Normal skin color and turgor. No cyanosis, rash, ulceration, clubbing, or edema. Radial and pedal pulses are 2/4 bilaterally. Neurological: No focal deficits. Strength and sensation are grossly intact. - Labs CBC & Chem 7: 10/26/18 16:14 10/27/18 07:25 Assessment and Plan (1) Pancreatitis Narrative/Plan: 38-year-old female with a history of acute on chronic pancreatitis underlying pancreatic divisum admitted with acute on chronic relapsing pancreatitis. Current Visit: Yes Status: Acute Code(s): K85.9 - ACUTE PANCREATITIS, UNSPECIFIED * DO NOT USE * SNOMED Code(s): 73004142 (2) Pancreatic divisum Current Visit: Yes Status: Acute Code(s): Q45.3 - OTH CONGENITAL MALFORMA TIONS OF PANCREAS AND PANCREATIC DUCT SNOMED Code(s): 30089019 (3) Barretts esophagus Narrative/Plan: Status post EGD May 2018 biopsies negative for dysplasia maintained on omeprazole 20 mg daily. Current Visit: Yes Status: Acute Code(s): K22.70 - BHAGAT'S ESOPHAGUS WITHOUT DYSPLASIA SNOMED Code(s): 145946777 Plan: 1. Supportive measures. GI prophylaxis. Diet advancement as tolerated. Patient was advised to follow-up with [facility] and/or her a specialist for further evaluation/treatment options. Assessment and plan a care discussed with Dr. Mccoy
--- NOTE | 2018-10-28 11:51 | US ---
EXAMINATION TYPE: US gallbladder DATE OF EXAM: 10/28/2018 COMPARISON: NONE CLINICAL HISTORY: RUQ pain . EXAM MEASUREMENTS: Liver Length: 16.8 cm Gallbladder Wall: 0.2 cm CBD: 0.3 cm Right Kidney: 11.2 x 4.4 x 5.2 cm Patient of large body habitus. Pancreas: Obscured by bowel gas Liver: wnl Gallbladder: wnl Evidence for sonographic Castle's sign:no CBD: wnl Right Kidney: wnl IMPRESSION: 1. No distinct abnormality seen.
--- NOTE | 2018-10-28 13:55 | P.DS ---
Providers Date of admission: 10/26/18 18:39 Attending physician: Christopher Love Consults: 10/26/18 18:40 Consult Physician Routine Consulting Provider: Abner Mccoy Consult Reason/Comments: pancreatitis Do you want consulting provider notified?: Yes Primary care physician: Carter Dover MD Hospital Course: 38-year-old female one of Dr. Garcia's patient with past medical history of recurrent pancreatitis, abnormality of the pancreatic area with pancreatic divisum, recurrent admission to the hospital intractable abdominal pain and recurrent pancreatitis with worsening lipase and amylase every few weeks. Patient was hospitalized last in 09/30/2018 for the recurrent abdominal pain with intractable nausea vomiting acute pancreatitis was evaluated seen by gastroenterology her lipase was 1300 at the time with conservative management and pain management hydration and GI prophylaxis patient ended up improving was seen and evaluated by gastroenterology and decid not to do any invasive p rocedure. Patient was discharged home to follow with her primary care in the following week. Has been doing well until the last 48 hours. Admission when developed to have worsening nausea vomiting abdominal pain not been able to keep any food or fluid down ended up coming to the emergency department at [facility] her lipase was 3233 mildly elevated white blood cell and low-grade temperature with her intractable nausea vomiting patient was started on IV hydration pain management and admitted to the hospital shortly after with above problem. 10/27: Repeat lipase is 333, amylase 122. Patient has been afebrile, heart rate 86, blood pressure 107/69, pulse ox 97% on room air. Patient is currently on a clear liquid diet. Patient has been seen by GI with recommendations for a CAT scan of the abdomen and pelvis with contrast, continue supportive measures and Protonix. Patient was advised to follow-up with her physician in [facility] to discuss possible surgical options. GI has cleared her to advance diet as tolerated. She is currently tolerating a clear liquid diet. CAT scan of the abdomen and pelvis reveals subtle questionable. Pancreatic fat stranding. No fluid collection to suggest. Pancreatic abscess, acute and chronic fluid collection nor pseudoptosis. Submucosal fat deposition of the terminal ileum, cecum, ascending colon suggest chronic colitis. Crohn's disease could be considered. No active inflammatory change. Predominantly dependent patchy bilateral basilar opacities of the lungs may represent atelectasis or pneumonia. Incentive spirometry will be added. 10/28: Lipase and amylase are much better, patient continued to complain of right upper quadrant discomfort ultrasound of the gallbladder was requested, and finalize that there is no gallstone or obstructive hepatic problem. patient diet will be titrated and she is doing well by late afternoon she'll be discharged home today to follow up the rest of her workup as an outpatient. Review of Systems CONSTITUTIONAL: Denies fever, denies chills. EYES: No icterus sclerae, no conjunctivitis. EARS, NOSE, MOUTH, THROAT, and FACE: No sore throat, lymphadenopathy, carotid bruits or deformity. RESPIRATORY: No SOB cough or wheezes. CARDIOVASCULAR: No CP, Palpitation, PND, Orthopnea, or angina. GASTROINTESTINAL: positive abdominal pain with nausea and vomiting, no Diarrhea or constipation, No GI Bleed, no distention or masses. GENITOURINARY: Negative for Hematuria or UTI, no kidney stones. INTEGUMENT/BREAST: Negative for any muscular injury with mild osteoarthritis.. HEMATOLOGIC/LYMPHATIC: Negative for bleed or purpura. MUSCULOSKELTAL: Negative for Myalgia or arthralgia. NEURLOGICAL: No LOC, Sz or syncope, blurred vision dizziness or abnormality.. BEHAVIORAL/PSYCH: Negative. ENDOCRINE: Negative. - Vital Signs Vital signs: Vital Signs Temp 97.9 F 10/27/18 07:00 Pulse 86 10/27/18 07:00 Resp 16 10/27/18 07:00 BP 107/69 10/27/18 07:00 Pulse Ox 97 10/27/18 07:00 Intake & Output 10/26/18 10/27/18 10/27/18 18:59 06:59 18:59 Intake Total 500 Balance 500 Weight 111.13 kg Intake: Intake, IV Titration 300 Amount Sodium Chloride 0.9% 1, 300 000 ml @ 100 mls/hr IV . Q10H UBALDO Rx#:[id number] Oral 200 Other: Voiding Method Toilet # Voids 1 - Exam General Appearance: Alert, cooperative, no distress, appears stated age. Neck HEENT: Supple, no lymphadenopathy, no thyroid enlargement, no carotid bruits.severe dry mucosa Lungs: Clear to auscultation without crackles or wheezes no rhonchi, no deformity. Chest Wall: Chest wall normal expansion with deep inspiration no tenderness and no deformity was found on exam, no costochondral pain or discomfort. Heart: Regular rate and rhythm, S1, S2 normal, no murmur, rub or gallop. Back: Symmetric, no curvature, ROM normal, no CVA tenderness. Abdomen: Soft positive bowel sounds tenderness and discomfort with no rebound or rigidity in the midepigastric area no sign of bruise or any other abnormality. Extremities: Extremities normal, atraumatic, no cyanosis or edema. Pulses: 2+ and symmetric. Skin: Skin color, texture, tugor normal, no rashes or lesions. Neurologic: Alert oriented x3 cranial nerves II through XII intact, no motor deficit, no abnormal balance or gait. Assessment and Plan Plan: 1 severe acute pancreatitis. Consult with GI appreciated. CAT scan as above. Continue IV fluids, pain medications, repeat lipase in the morning. 2 severe dehydration: Continue IV hydration IV fluid for now. 3 intractable nausea vomiting: Continue patient on PPI also Zofran as needed basis. 4 chronic depression: Has been on citalopram 20 mg a day. 5 severe GERD: Has been on omeprazole 20 mg daily. 6 chronic pain management: Has been on tramadol 50 mg every 6 hours as needed continue medication. 7 DVT prophylaxis: Patient will have early mobilization and knee-high LEONARDO hose. Patient was reevaluated by gastroenterology, continued to have slight right upper quadrant discomfort ultrasound gallbladder came back negative, her lipase and amylase were improved significantly, decided not to do any ERCP MRCP this time patient might be going to see her gas and neurologist in [facility] or the one she seen originally in [facility] for this condition. Patient is very comfortable to be discharged home she'll be off work for the next 2 days to she sees her PCP further order and arrangement will be made by her PCP. Patient Condition at Discharge: Fair Plan - Discharge Summary Discharge Rx Participant: No New Discharge Prescriptions: New Acetaminophen Tab [Tylenol] 650 mg PO Q6HR PRN tab PRN Reason: Mild Pain Or Fever > 100.5 Continue Citalopram Hydrobromide [Citalopram HBr] 20 mg PO DAILY Omeprazole 20 mg PO DAILY [place]-3 Fatty Acids/Fish Oil [Fish Oil 1,000 mg Softgel] 1 cap PO DAILY L.acidoph,Paracasei, B.lactis [Probiotic] 1 cap PO DAILY Ondansetron [Zofran ODT] 4 mg PO Q8HR traMADol HCL [Ultram] 50 mg PO Q6HR PRN PRN Reason: Pain Fish Oil/Dha/Epa [Fish Oil 1,200 mg Fish Oil] 1 cap PO DAILY Discharge Medication List Citalopram Hydrobromide [Citalopram HBr] 20 mg PO DAILY 11/08/17 [History] L.acidoph,Paracasei, B.lactis [Probiotic] 1 cap PO DAILY 09/30/18 [History] [place]-3 Fatty Acids/Fish Oil [Fish Oil 1,000 mg Softgel] 1 cap PO DAILY 09/30/18 [History] Omeprazole 20 mg PO DAILY 09/30/18 [History] Fish Oil/Dha/Epa [Fish Oil 1,200 mg Fish Oil] 1 cap PO DAILY 10/26/18 [History] Ondansetron [Zofran ODT] 4 mg PO Q8HR 10/26/18 [History] traMADol HCL [Ultram] 50 mg PO Q6HR PRN 10/26/18 [History] Acetaminophen Tab [Tylenol] 650 mg PO Q6HR PRN tab 10/28/18 [Rx] Follow up Appointment(s)/Referral(s): Carter Dover MD [Primary Care Provider] - 11/01/18 2:45 pm Patient Instructions/Handouts: Pancreatitis (DC) Activity/Diet/Wound Care/Special Instructions: Follow up with [facility] or [place] Specialist Discharge Disposition: HOME SELF-CARE
[2018-10-28 16:20] VITALS: BP 109/69; PULSE 101; TEMP 98.4
== END 2018-10-28 17:51 | disposition home or self-care (01) | DRG 439 ==
LOC: EC 14:57 → 4SSUR 18:39
PROVIDERS: ADMIT Internal Medicine Geriatric Medicine; ATTEND Internal Medicine Geriatric Medicine
DX: K85.90 Acute pancreatitis without necrosis or infection, unspecified (principal); Q45.3 Other congenital malformations of pancreas and pancreatic duct; K86.1 Other chronic pancreatitis; E86.0 Dehydration; F32.9 Major depressive disorder, single episode, unspecified; F41.9 Anxiety disorder, unspecified; K21.9 Gastro-esophageal reflux disease without esophagitis; K22.70 Barrett's esophagus without dysplasia; K44.9 Diaphragmatic hernia without obstruction or gangrene; G43.909 Migraine, unspecified, not intractable, without status migrainosus; G89.29 Other chronic pain; K52.89 Other specified noninfective gastroenteritis and colitis; Z87.891 Personal history of nicotine dependence; Z79.899 Other long term (current) drug therapy; Z88.8 Allergy status to other drugs, medicaments and biological substances; Z91.041 Radiographic dye allergy status; Z91.040 Latex allergy status; Z91.013 Allergy to seafood; Z82.49 Family history of ischemic heart disease and other diseases of the circulatory system
CPT/HCPCS: 36415; 74018; 74176; 76705; 80053; 81003; 81025; 82150; 83690; 85025; 96361; 96374; 96375; 96376; 99285

== ENCOUNTER 2018-12-29 16:01 | Emergency (ER) | payer MEDICAID, OTHER ==
[2018-12-29] MEDS ORDERED: SODIUM CHLORIDE 0.9% 1,000 ML IV STA (16:54)
[2018-12-29 17:09] LABS: Basophils % (A) 0 %; Eosinophils # (A) 0.1 k/uL (0-0.7); Eosinophils % (A) 1 %; HCT 39.7 % (34.0-46.0); HGB 12.9 gm/dL (11.4-16.0); Lymphocytes # (A) 2.4 k/uL (1.0-4.8); Lymphocytes % (A) 21 %; MCH 27.5 pg (25.0-35.0); MCHC 32.6 g/dL (31.0-37.0); MCV 84.5 fL (80.0-100.0); Mean Platelet Volume 7.3; Monocytes # (A) 0.5 k/uL (0-1.0); Monocytes % (A) 5 %; Neutrophils # (A) 8.1 k/uL (1.3-7.7); Neutrophils % (A) 72 %; Platelet Count 343 k/uL (150-450); RDW 13.1 % (11.5-15.5); WBC 11.3 k/uL (3.8-10.6)
[2018-12-29 17:15] LABS: Appearance,Urine Cloudy (Clear); Bacteria,Urine Occasional /hpf; Bilirubin,Urine Negative (Negative); Blood,Urine Negative (Negative); Color,Urine Yellow; Glucose,Urine (UA) Negative (Negative); Ketones,Urine Negative (Negative); Leukocyte Esterase,Urine Negative (Negative); Mucus,Urine Occasional /hpf; Nitrite,Urine Negative (Negative); Protein,Urine Negative (Negative); RBC,Urine 1 /hpf (0-5); Specific Gravity,Urine 1.016 (1.001-1.035); Squamous Epithelial Cell,Urine 6 /hpf (0-4); Urobilinogen,Urine <2.0 mg/dL (<2.0); WBC,Urine 2 /hpf (0-5)
[2018-12-29 17:17] LABS: ALT 18 U/L (9-52); AST 17 U/L (14-36); African American GFR (CKD) >90 (>60 ml/min/1.73 sqM); Albumin 4.7 g/dL (3.5-5.0); Alkaline Phosphatase 87 U/L (38-126); Anion Gap 11 mmol/L; Blood Urea Nitrogen 7 mg/dL (7-17); Calcium 9.7 mg/dL (8.4-10.2); Carbon Dioxide 26 mmol/L (22-30); Chloride 104 mmol/L (98-107); Glucose 97 mg/dL (74-99); Lipase 57 U/L (23-300); Potassium 4.1 mmol/L (3.5-5.1); Sodium 141 mmol/L (137-145); Total Bilirubin 0.6 mg/dL (0.2-1.3); Total Protein 7.6 g/dL (6.3-8.2)
[2018-12-29] MEDS ORDERED: diphenhydrAMINE 50 MG/ML 1 ML VIAL IVP STA (17:48)
[2018-12-29] MEDS ORDERED: FAMOTIDINE 20 MG/2 ML VIAL IV STA (17:48)
[2018-12-29] MEDS ORDERED: methylPREDNISolone SOD SUCCI 125 MG/2 ML VIAL IV STA (17:49)
--- NOTE | 2018-12-29 18:00 | ED ---
General Adult HPI - General Chief complaint: Nausea/Vomiting/Diarrhea Stated complaint: Dehydration poss pancreatitis, sent by Time Seen by Provider: 12/29/18 16:37 Source: patient, RN notes reviewed, old records reviewed Mode of arrival: ambulatory Limitations: no limitations - History of Present Illness Initial comments: 38-year-old female patient past medical history of chronic pancreatitis, facial hernia, Lagunas's esophagus, migraine disorder presents to ED with approximately 3 weeks of abdominal pain, and diarrhea. Patient reports that she has pain in her suprapubic and right lower quadrant regions. Patient states that she has diarrhea shortly after she eats. Patient reports nausea without emesis. Patient denies any chest pain or shortness of breath. Patient denies any other complaints at this time. Systemic: Pt denies fatigue, fever/chills, rash. Pt denies weakness, night sweats, weight loss. Neuro: Pt denies headache, visual disturbances, syncope or pre-syncope. HEENT: Pt denies ocular discharge or irritation, otalgia, rhinorrhea, pharyngitis or notable lymphadenopathy. Cardiopulmonary: Pt denies chest pain, SOB, heart palpitations, dyspnea on exertion. Abdominal/GI: Pt denies vomitting. : Pt denies dysuria, burning w/ urination, frequency/urgency. Denies new onset urinary or bowel incontinence. MSK: Pt denies myalgia, loss of strength or function in extremities. Neuro: Pt denies new onset weakness, paresthesias. - Related Data Home Medications Medication Instructions Recorded Confirmed Citalopram Hydrobromide 20 mg PO DAILY 11/08/17 10/26/18 [Citalopram HBr] L.acidoph,Paracasei, B.lactis 1 cap PO DAILY 09/30/18 10/26/18 [Probiotic] [place]-3 Fatty Acids/Fish Oil [Fish 1 cap PO DAILY 09/30/18 10/26/18 Oil 1,000 mg Softgel] Omeprazole 20 mg PO DAILY 09/30/18 10/26/18 Fish Oil/Dha/Epa [Fish Oil 1,200 1 cap PO DAILY 10/26/18 10/26/18 mg Fish Oil] Ondansetron [Zofran ODT] 4 mg PO Q8HR 10/26/18 10/26/18 traMADol HCL [Ultram] 50 mg PO Q6HR PRN 10/26/18 10/26/18 Previous Rx's Medication Instructions Recorded Acetaminophen Tab [Tylenol] 650 mg PO Q6HR PRN tab 10/28/18 Allergies Allergy/AdvReac Type Severity Reaction Status Date / Time Iodinated Contrast- Oral and Allergy Severe Anaphylaxis Verified 10/26/18 16:22 IV Dye [Iodinated Contrast Media - IV Dye] latex Allergy Rash/Hives Verified 10/26/18 16:22 shellfish derived Allergy Anaphylaxis Verified 10/26/18 16:22 metoclopramide HCl AdvReac Facial Verified 10/26/18 16:22 [From Reglan] Twitching prochlorperazine edisylate AdvReac Facial Verified 10/26/18 16:22 [From Compazine] Twitching prochlorperazine maleate AdvReac Facial Verified 10/26/18 16:22 [From Compazine] Twitching promethazine HCl AdvReac Facial Verified 10/26/18 16:22 [From Phenergan] Twitching Review of Systems ROS Statement: Those systems with pertinent positive or pertinent negative responses have been documented in the HPI. ROS Other: All systems not noted in ROS Statement are negative. Past Medical History Past Medical History: GERD/Reflux Additional Past Medical History / Comment(s): CHRONIC pancreatitis, hiatal hernia, Lagunas's esophagus, migraines. History of Any Multi-Drug Resistant Organisms: None Reported Past Surgical History: Uterine Ablation Additional Past Surgical History / Comment(s): Laparoscopy x 2 d/t endometriosis, uterine ablation, multiple egd's and ercp's, pancreatic stents- none in now because they fall out. Past Anesthesia/Blood Transfusion Reactions: No Reported Reaction Additional Past Anesthesia/Blood Transfusion Reaction / Comment(s): never had blood transfusion Past Psychological History: Anxiety, Depression Smoking Status: Former smoker Past Alcohol Use History: None Reported Past Drug Use History: None Reported - Past Family History Mother Family Medical History: No Reported History Additional Family Medical History / Comment(s): Mother is healthy. Father Family Medical History: Hypertension General Exam - General Exam Comments Initial Comments: Constitutional: NAD, AOX3, Pt has pleasant affect. HEENT: NC/AT, trachea midline, neck supple, no lymphadenopathy. Posterior pharynx non erythematous, without exudates. External ears appear normal, without discharge. Mucous membranes moist. Eyes PERRLA, EOM intact. There is no scleral icterus. No pallor noted. Cardiopulmonary: RRR, no murmurs, rubs or gallops, no JVD noted. Lungs CTAB in anterior and posterior robison. No peripheral edema. Abdominal exam: Abdomen soft and non-distended. Abdomen mild tenderness to palpation in periumbilical and right lower quadrant region. No guarding or rigidity no ecchymoses. Bowel sounds active in LLQ. No hepatosplenomegaly. No ecchymosis Neuro: CN II-XII grossly intact. No nuchal rigidity. No raccon eyes, no kiser sign, no hemotympanum. No cervical spinal tenderness. MSK: No posterior calf tenderness bilaterally, homans sign negative bilaterally. Posterior tibialis and radial pulse +2 bilaterally. Sensation intact in upper and lower extremities. Full active ROM in upper and lower extremities, 5/5 stregnth. Limitations: no limitations Course Vital Signs 12/29/18 12/29/18 12/29/18 16:31 19:01 20:10 Temperature 98.7 F 98.1 F Pulse Rate 106 H 73 75 Respiratory 18 18 19 Rate Blood Pressure 143/93 131/78 127/80 O2 Sat by Pulse 97 99 94 L Oximetry Medical Decision Making - Medical Decision Making 38-year-old female patient past medical history of chronic pancreatitis, facial hernia, Lagunas's esophagus, migraine disorder presents to ED with approximately 3 weeks of abdominal pain, and diarrhea. Patient reports that she has pain in her suprapubic and right lower quadrant regions. Patient states that she has diarrhea shortly after she eats. Patient reports nausea without emesis. Patient denies any chest pain or shortness of breath. Patient denies any other complaints at this time. Patient also in stable, afebrile. Physical exam displayed mild tenderness palpation periumbilical and right lower quadrant region. Laboratory investigations revealed mild cytosis 11.3. CMP noncompressive. Lactic acid within normal limits. Lipase within normal limits. UA negative. CT of the pelvis displayed minimal subsegmental atelectasis at the lung bases, abdomen and pelvis not significantly differentiated and hold exam, no acute abdomen and pelvis. Patient was discharged with GI follow-up. P atient return here if condition worsens. Case discussed with Dr. Major. - Lab Data Result diagrams: 12/29/18 16:55 12/29/18 16:55 Lab Results 12/29/18 12/29/18 12/29/18 Range/Units 16:55 16:55 16:55 WBC 11.3 H (3.8-10.6) k/uL RBC 4.70 (3.80-5.40) m/uL Hgb 12.9 (11.4-16.0) gm/dL Hct 39.7 (34.0-46.0) % MCV 84.5 (80.0-100.0) fL MCH 27.5 (25.0-35.0) pg MCHC 32.6 (31.0-37.0) g/dL RDW 13.1 (11.5-15.5) % Plt Count 343 (150-450) k/uL Neutrophils % 72 % Lymphocytes % 21 % Monocytes % 5 % Eosinophils % 1 % Basophils % 0 % Neutrophils # 8.1 H (1.3-7.7) k/uL Lymphocytes # 2.4 (1.0-4.8) k/uL Monocytes # 0.5 (0-1.0) k/uL Eosinophils # 0.1 (0-0.7) k/uL Basophils # 0.0 (0-0.2) k/uL Sodium 141 (137-145) mmol/L Potassium 4.1 (3.5-5.1) mmol/L Chloride 104 (98-107) mmol/L Carbon Dioxide 26 (22-30) mmol/L Anion Gap 11 mmol/L BUN 7 (7-17) mg/dL Creatinine 0.71 (0.52-1.04) mg/dL Est GFR (CKD-EPI)AfAm >90 (>60 ml/min/1.73 sqM) Est GFR (CKD-EPI)NonAf >90 (>60 ml/min/1.73 sqM) Glucose 97 (74-99) mg/dL Plasma Lactic Acid [place] (0.7-2.0) mmol/L Calcium 9.7 (8.4-10.2) mg/dL Total Bilirubin 0.6 (0.2-1.3) mg/dL AST 17 (14-36) U/L ALT 18 (9-52) U/L Alkaline Phosphatase 87 (38-126) U/L Total Protein 7.6 (6.3-8.2) g/dL Albumin 4.7 (3.5-5.0) g/dL Lipase 57 (23-300) U/L Urine Color Urine Appearance (Clear) Urine pH (5.0-8.0) Ur Specific [place] (1.001-1.035) Urine Protein (Negative) Urine Glucose (UA) (Negative) Urine Ketones (Negative) Urine Blood (Negative) Urine Nitrite (Negative) Urine Bilirubin (Negative) Urine Urobilinogen (<2.0) mg/dL Ur Leukocyte Esterase (Negative) Urine RBC (0-5) /hpf Urine WBC (0-5) /hpf Ur Squamous Epith Cells (0-4) /hpf Urine Bacteria (None) /hpf Urine Mucus (None) /hpf Urine HCG, Qual Not Detected (Not Detectd) 12/29/18 12/29/18 Range/Units 16:55 16:55 WBC (3.8-10.6) k/uL RBC (3.80-5.40) m/uL Hgb (11.4-16.0) gm/dL Hct (34.0-46.0) % MCV (80.0-100.0) fL MCH (25.0-35.0) pg MCHC (31.0-37.0) g/dL RDW (11.5-15.5) % Plt Count (150-450) k/uL Neutrophils % % Lymphocytes % % Monocytes % % Eosinophils % % Basophils % % Neutrophils # (1.3-7.7) k/uL Lymphocytes # (1.0-4.8) k/uL Monocytes # (0-1.0) k/uL Eosinophils # (0-0.7) k/uL Basophils # (0-0.2) k/uL Sodium (137-145) mmol/L Potassium (3.5-5.1) mmol/L Chloride (98-107) mmol/L Carbon Dioxide (22-30) mmol/L Anion Gap mmol/L BUN (7-17) mg/dL Creatinine (0.52-1.04) mg/dL Est GFR (CKD-EPI)AfAm (>60 ml/min/1.73 sqM) Est GFR (CKD-EPI)NonAf (>60 ml/min/1.73 sqM) Glucose (74-99) mg/dL Plasma Lactic Acid [place] 1.2 (0.7-2.0) mmol/L Calcium (8.4-10.2) mg/dL Total Bilirubin (0.2-1.3) mg/dL AST (14-36) U/L ALT (9-52) U/L Alkaline Phosphatase (38-126) U/L Total Protein (6.3-8.2) g/dL Albumin (3.5-5.0) g/dL Lipase (23-300) U/L Urine Color Yellow Urine Appearance Cloudy H (Clear) Urine pH 6.0 (5.0-8.0) Ur Specific [place] 1.016 (1.001-1.035) Urine Protein Negative (Negative) Urine Glucose (UA) Negative (Negative) Urine Ketones Negative (Negative) Urine Blood Negative (Negative) Urine Nitrite Negative (Negative) Urine Bilirubin Negative (Negative) Urine Urobilinogen <2.0 (<2.0) mg/dL Ur Leukocyte Esterase Negative (Negative) Urine RBC 1 (0-5) /hpf Urine WBC 2 (0-5) /hpf Ur Squamous Epith Cells 6 H (0-4) /hpf Urine Bacteria Occasional H (None) /hpf Urine Mucus Occasional H (None) /hpf Urine HCG, Qual (Not Detectd) Disposition Clinical Impression: Abdominal pain, Diarrhea Disposition: HOME SELF-CARE Condition: Stable Instructions (If sedation given, give patient instructions): Acute Diarrhea (ED), Abdominal Pain (ED), Nutrition Tips for Relief of Diarrhea (ED) Additional Instructions: Patient to adhere to previously discussed treatment plan and will take medication(s) as directed. Patient to follow up with PCP in 1-2 days. Patient to return to ED if symptoms do not improve. Follow-up with GI consult and primary care provider tomorrow. Return to ER if condition worsens. Is patient prescribed a controlled substance at d/c from ED?: No Referrals: Carter Dover MD [Primary Care Provider] - 1-2 days Abner Mccoy MD [STAFF PHYSICIAN] - 1-2 days
--- NOTE | 2018-12-29 19:00 | CT ---
EXAMINATION TYPE: CT abdomen pelvis w con DATE OF EXAM: 12/29/2018 COMPARISON: 10/27/2018 HISTORY: ab pain/dehydration/nausea x 3 days. diarrhea x [address] DLP: 1936.9 mGycm Automated exposure control for dose reduction was used. TECHNIQUE: Helical acquisition of images was performed from the lung bases through the pelvis. CONTRAST: Performed without Oral Contrast and with IV Contrast, patient injected with 100 mL of Isovue 300. FINDINGS: There is subsegmental atelectasis at the lung bases. There are small hiatal hernia. Heart size is normal. There is no pericardial effusion. Stomach has normal size. Liver spleen pancrea s gallbladder appear normal. Bile ducts are not dilated. There is no adrenal mass. Kidneys have normal size and contour. There is no hydronephrosis. Ureters a re not dilated. There is 1 cm cortical cyst posterior left kidney. There is no retroperitoneal adenop athy. Bladder distends smoothly. There is no inguinal hernia. There is no free fluid in the pelvis. U terus is anteverted. There is no evidence of pelvic mass. Appendix is not thickened. There is no mesenteric edema. There is no ascites or free air. There is small umbilical hernia that c ontains fat. There is no evidence of wall obstruction. I see no intestinal wall thickening. Lumbar vertebra have normal spacing and alignment. There is no bony destructive process. Bony pelvis appears intact. IMPRESSION: MINIMAL SUBSEGMENTAL ATELECTASIS AT THE LUNG BASES. ABDOMEN AND PELVIS NOT SIGNIFICANTLY DIFFERENT TH AN OLD EXAM. NO ACUTE ABNORMALITY WITHIN THE ABDOMEN PELVIS.
[2018-12-29 20:17] VITALS: BP 127/80; PULSE 75; RESP 19; TEMP 98.1
== END 2018-12-29 20:14 | disposition home or self-care (01) ==
LOC: EC 16:01
DX: R10.31 Right lower quadrant pain (principal); R10.33 Periumbilical pain; R19.7 Diarrhea, unspecified; R11.0 Nausea; J98.11 Atelectasis; K21.9 Gastro-esophageal reflux disease without esophagitis; F32.9 Major depressive disorder, single episode, unspecified; F41.9 Anxiety disorder, unspecified; Z87.891 Personal history of nicotine dependence; Z79.899 Other long term (current) drug therapy; Z91.013 Allergy to seafood; Z91.041 Radiographic dye allergy status; Z91.040 Latex allergy status; Z88.8 Allergy status to other drugs, medicaments and biological substances
CPT/HCPCS: 36415; 80053; 83605; 83690; 85025; 81001; 81025; 74177; 99284; 96374; 96375 ×2; 96361; J1200; J2930; Q9967

== ENCOUNTER → 2019-02-14 | Outpatient (CLI) | payer MEDICAID, OTHER ==
--- NOTE | 2019-02-14 09:53 | XR ---
EXAMINATION TYPE: XR KUB DATE OF EXAM: 02/14/2019 8:11 AM CLINICAL HISTORY: Pancreatic stent placement TECHNIQUE: Single supine KUB image of the abdomen is obtained. COMPARISON: None. FINDINGS: Radiopaque catheter is seen overlying the right 12th rib and curving superiorly to project over the superior endplate of T12. Scattered gas is seen in non-distended small bowel loops. Gas and fecal material is seen in non-distended colon. There is no visceromegaly, pneumoperitoneum, or abnorm al calcification appreciated. The lung bases are clear and the osseous structures are intact. IMPRESSION: Pancreatic stent overlying the right 12th rib and T12 vertebral body.
== END | disposition home or self-care (01) ==
LOC: RADXRMAIN 07:49
PROVIDERS: ATTEND Internal Medicine Gastroenterology
DX: T18.3XXA Foreign body in small intestine, initial encounter (principal); Z96.89 Presence of other specified functional implants
CPT/HCPCS: 74018

== ENCOUNTER → 2019-03-01 | Outpatient (CLI) | payer MEDICAID, OTHER ==
--- NOTE | 2019-03-02 07:42 | XR ---
EXAMINATION TYPE: XR KUB DATE OF EXAM: 03/01/2019 5:09 PM CLINICAL HISTORY: Pancreatic stent migration per order. TECHNIQUE: Two supine KUB images of the abdomen are obtained. COMPARISON: CT abdomen and pelvis December 29, 2018. Abdominal x-ray February 14, 2019. FINDINGS: Some paucity of bowel gas is now present. Visualize gas is noted in nondistended small and large bowel loops. Central pancreatic radiodense stent is unchanged in location and orientation with C-shaped course overlapping right 12th rib and oblique course extending towards left upper quadrant. Visualized osseous structures are intact. IMPRESSION: As above.
== END | disposition home or self-care (01) ==
LOC: RADXRMAIN 16:46
PROVIDERS: ATTEND Internal Medicine Gastroenterology
DX: T85.528A Displacement of other gastrointestinal prosthetic devices, implants and grafts, initial encounter (principal); K85.90 Acute pancreatitis without necrosis or infection, unspecified; Z98.890 Other specified postprocedural states
CPT/HCPCS: 74018

== ENCOUNTER 2019-03-07 15:26 | Observation (INO) | payer MEDICAID, OTHER ==
[2019-03-07] MEDS ORDERED: SODIUM CHLORIDE 0.9% 500 ML 500 ML IV STA (15:43)
[2019-03-07] MEDS ORDERED: SODIUM CHLORIDE 0.9% 1,000 ML IV STA ×2 (15:43)
--- NOTE | 2019-03-07 15:44 | ED ---
Chest Pain HPI - General Chief Complaint: Chest Pain Stated Complaint: Chest Pain Time Seen by Provider: 03/07/19 15:43 Source: patient, RN notes reviewed, old records reviewed Mode of arrival: wheelchair Limitations: no limitations - History of Present Illness Initial Comments: This is a 39-year-old female the ER for evaluation. Patient does have strong family history of heart disease and history himself of chronic pancreatitis. Patient resents today for chest pain. Chest pain is anterior heaviness. Began this morning a few hours prior to arrival. No travel history no sick contacts. Patient denies any fever cough or congestion. Does admit to some bilateral lower extremity pain that she had the last few days that is resolved today. No prior history of similar pain or chest pain before. No prior cardiac evaluation. Patient did have recent ERCP with stent placement and then re-ERCP secondary to evaluation of stents MD Complaint: chest pain -: hour(s) Onset: during rest, awoke with symptoms Pain Location: substernal Pain Radiation: none Severity: moderate Severity scale (1-10): 4 - Related Data Home Medications Medication Instructions Recorded Confirmed Citalopram Hydrobromide 20 mg PO DAILY 11/08/17 03/07/19 [Citalopram HBr] Omeprazole 20 mg PO DAILY 09/30/18 03/07/19 Allergies Allergy/AdvReac Type Severity Reaction Status Date / Time Iodinated Contrast- Oral and Allergy Severe Anaphylaxis Verified 03/07/19 16:49 IV Dye [Iodinated Contrast Media - IV Dye] latex Allergy Rash/Hives Verified 03/07/19 16:49 shellfish derived Allergy Anaphylaxis Verified 03/07/19 16:49 metoclopramide HCl AdvReac Facial Verified 03/07/19 16:49 [From Reglan] Twitching prochlorperazine edisylate AdvReac Facial Verified 03/07/19 16:49 [From Compazine] Twitching prochlorperazine maleate AdvReac Facial Verified 03/07/19 16:49 [From Compazine] Twitching promethazine HCl AdvReac Facial Verified 03/07/19 16:49 [From Phenergan] Twitching Review of Systems ROS Statement: Those systems with pertinent positive or pertinent negative responses have been documented in the HPI. ROS Other: All systems not noted in ROS Statement are negative. EKG Findings - EKG Comments: EKG Findings:: EKG shows sinus tachycardia rate of 109, [place] 160, QRS 74, QTC 487 Past Medical History Past Medical History: GERD/Reflux Additional Past Medical History / Comment(s): CHRONIC pancreatitis, hiatal hernia, Lagunas's esophagus, migraines. History of Any Multi-Drug Resistant Organisms: None Reported Past Surgical History: Uterine Ablation Additional Past Surgical History / Comment(s): Laparoscopy x 2 d/t endometriosis, uterine ablation, multiple egd's and ercp's, pancreatic stents- none in now because they fall out. ERCP, EGD Past Anesthesia/Blood Transfusion Reactions: No Reported Reaction Additional Past Anesthesia/Blood Transfusion Reaction / Comment(s): never had blood transfusion Past Psychological History: Anxiety, Depression Smoking Status: Former smoker Past Alcohol Use History: None Reported Past Drug Use History: None Reported - Past Family History Mother Family Medical History: No Reported History Additional Family Medical History / Comment(s): Mother is healthy. Father Family Medical History: Hypertension General Exam Limitations: no limitations General appearance: alert, in no apparent distress Head exam: Present: atraumatic, normocephalic, normal inspection Eye exam: Present: normal appearance, PERRL, EOMI. Absent: scleral icterus, conjunctival injection, periorbital swelling ENT exam: Present: normal exam, mucous membranes moist Neck exam: Present: normal inspection. Absent: tenderness, meningismus, lymphadenopathy Respiratory exam: Present: normal lung sounds bilaterally. Absent: respiratory distress, wheezes, rales, rhonchi, stridor Cardiovascular Exam: Present: normal rhythm, tachycardia, normal heart sounds. Absent: systolic murmur, diastolic murmur, rubs, gallop, clicks GI/Abdominal exam: Present: soft, normal bowel sounds. Absent: distended, tenderness, guarding, rebound, rigid Extremities exam: Present: normal inspection, full ROM, normal capillary refill. Absent: tenderness, pedal edema, joint swelling, calf tenderness Back exam: Present: normal inspection Neurological exam: Present: alert, oriented X3, CN II-XII intact Psychiatric exam: Present: normal affect, normal mood Skin exam: Present: warm, dry, intact, normal color. Absent: rash Course Vital Signs 03/07/19 03/07/19 15:36 17:13 Temperature 97.9 F Pulse Rate 104 H 89 Respiratory 18 18 Rate Blood Pressure 135/85 125/75 O2 Sat by Pulse 99 99 Oximetry - Reevaluation(s) Reevaluation #1: 03/07/19 15:46 medical record is reviewed Reevaluation #2: 03/07/19 15:[address] Love as he is sending patient to the ED re treatment plan Chest Pain MDM - MDM -year-old female strong family history of heart disease coming of chest pain. CT is negative for PE will admit for cardiac observation Critical Care Time Critical Care Time: Yes Total Critical Care Time: 31 Disposition Clinical Impression: Chest pain Disposition: ADMITTED IP TO THIS HOSP Condition: Undetermined Instructions (If sedation given, give patient instructions): Chest Pain (ED) Is patient prescribed a controlled substance at d/c from ED?: No Referrals: Carter Dover MD [Primary Care Provider] - 1-2 days
[2019-03-07] MEDS ORDERED: FAMOTIDINE 20 MG/2 ML VIAL IV STA (15:46)
[2019-03-07] MEDS ORDERED: methylPREDNISolone SOD SUCCI 125 MG/2 ML VIAL IV STA (15:46)
[2019-03-07] MEDS ORDERED: diphenhydrAMINE 50 MG/ML 1 ML VIAL IVP STA (15:46)
[2019-03-07 16:21] LABS: Basophils # (A) 0.1 k/uL (0-0.2); Basophils % (A) 1 %; Eosinophils # (A) 0.2 k/uL (0-0.7); Eosinophils % (A) 2 %; HCT 36.4 % (34.0-46.0); HGB 12.5 gm/dL (11.4-16.0); Lymphocytes # (A) 2.3 k/uL (1.0-4.8); Lymphocytes % (A) 19 %; MCH 28.3 pg (25.0-35.0); MCHC 34.4 g/dL (31.0-37.0); MCV 82.4 fL (80.0-100.0); Monocytes # (A) 0.6 k/uL (0-1.0); Monocytes % (A) 5 %; Neutrophils # (A) 9.2 k/uL (1.3-7.7); Neutrophils % (A) 74 %; Platelet Count 332 k/uL (150-450); RBC 4.42 m/uL (3.80-5.40); RDW 13.1 % (11.5-15.5); WBC 12.5 k/uL (3.8-10.6)
[2019-03-07 16:30] LABS: ALT 22 U/L (9-52); AST 20 U/L (14-36); African American GFR (CKD) >90 (>60 ml/min/1.73 sqM); Albumin 4.1 g/dL (3.5-5.0); Alkaline Phosphatase 81 U/L (38-126); Anion Gap 9 mmol/L; Blood Urea Nitrogen 6 mg/dL (7-17); Calcium 9.3 mg/dL (8.4-10.2); Carbon Dioxide 24 mmol/L (22-30); Chloride 106 mmol/L (98-107); Glucose 91 mg/dL (74-99); Magnesium 1.9 mg/dL (1.6-2.3); Potassium 3.6 mmol/L (3.5-5.1); Sodium 139 mmol/L (137-145); Total Bilirubin 0.5 mg/dL (0.2-1.3); Total Protein 6.8 g/dL (6.3-8.2)
[2019-03-07 16:32] LABS: D-Dimer 0.21 mg/L FEU (<0.60); INR 0.9 (<1.2); Partial Thromboplastin Time 24.5 sec (22.0-30.0); Prothrombin Time 9.9 sec (9.0-12.0)
--- NOTE | 2019-03-07 19:24 | XR ---
EXAMINATION: XR chest 2V DATE AND TIME: 03/07/2019 5:03 PM CLINICAL INDICATION: PHH; Chest Pain TECHNIQUE: Departmental protocol COMPARISON: None FINDINGS: Overlying soft tissues are prominent. The lungs are well-expanded and appear to be clear. The pleural spaces are negative. The cardiac silhouette is not enlarged. The remainder of the mediastinal silhouette is unremarkable. The skeletal structures and soft tissues are negative for acute findings. IMPRESSION: No acute radiographic process.
--- NOTE | 2019-03-07 19:28 | CT ---
EXAMINATION TYPE: CT angio chest with contrast and with 3-D reconstruction renderings DATE OF EXAM: 03/07/2019 5:37 PM COMPARISON: None HISTORY: SOB, chest pain CT DLP: 675.6 mGycm Automated exposure control for dose reduction was used. CONTRAST: CTA scan of the thorax is performed with IV Contrast, patient injected with 100 mL of Isovu e 370, pulmonary embolism protocol. Three-D reconstructions. FINDINGS: LUNGS: The lungs are grossly clear, there is no concerning parenchymal mass or nodule identified. The re is no pleural effusion or pneumothorax seen. The tracheobronchial tree is patent. MEDIASTINUM: There is satisfactory enhancement of the pulmonary artery and its branches, there is no CT evidence for pulmonary embolism. No acute aortic findings. There is no cardiomegaly or pericardial effusion or coronary calcifications are evident. No adenopathy. OTHER: No additional significant abnormality is seen. IMPRESSION: NO ACUTE PROCESS.
[2019-03-07] MEDS ORDERED: HEPARIN SODIUM,PORCINE 5,000 UNIT/ML 1 ML VIAL IV PRN (19:42)
[2019-03-07] MEDS ORDERED: ASPIRIN 81 MG PO STA (19:42)
[2019-03-07] MEDS ORDERED: HEPARIN SODIUM,PORCINE 5,000 UNIT/ML 1 ML VIAL IV ONE (19:42)
[2019-03-07] MEDS ORDERED: NITROGLYCERIN SL TABS 0.4 MG TAB SUBLINGUAL PRN (19:42)
[2019-03-07] MEDS ORDERED: HEPARIN SOD,PORK IN 0.45% NACL 25,000 UNIT in 0.45% NACL 1 250ML.BAG IV SCH (19:45)
[2019-03-07] MEDS: MORPHINE SULFATE 4 MG/ML SYRINGE IVP PRN (20:50)
[2019-03-07] MEDS ORDERED: METOPROLOL TARTRATE 25 MG TAB PO SCH (21:00)
[2019-03-08] MEDS: MORPHINE SULFATE 4 MG/ML SYRINGE IVP PRN (01:47)
[2019-03-08 07:43] LABS: Mean Platelet Volume 7.5; Platelet Count 317 k/uL (150-450)
[2019-03-08 08:00] LABS: Cholesterol 246 mg/dL (<200); HDL Cholesterol 83 mg/dL (40-60); LDL Cholesterol,Calculated 139 mg/dL (0-99); Triglycerides 122 mg/dL (<150)
[2019-03-08] MEDS ORDERED: ASPIRIN 325 MG TAB PO SCH (09:00)
--- NOTE | 2019-03-08 10:46 | P.CRDCN ---
History of Present Illness History of present illness: This is a pleasant 39-year-old female past medical history significant for gastroesophageal reflux disease, Juarez's esophagus and chronic pancreatitis. She denies prior history of coronary artery disease, hypertension and dyslipidemia. She recently had an ERCP with stent placement and removal on Wednesday. She has no family history for premature coronary artery disease. She d oes not follow with a television engineering teacher for any reason. We've been asked in consultation secondary to chest discomfort. She states yesterday while she was walking back and forth from her vehicle to her home she developed a heavy pressure sensation in the anterior chest in the midsternal region associated with shortness of breath and palpitations. She denies associated dizziness, nausea, vomiting or diaphoresis. There is no radiation to the arm, back, neck or jaw. She states it felt like her heart was beating fast. She does say she has frequent bouts of tachycardia. Upon arrival to the emergency department she was having ongoing chest discomfort this persisted until approximately 1:00 in the morning last evening after receiving 2 doses of IV morphine. She is seen and examined resting comfortably in bed in no acute distress. She denies active chest discomfort. EKGs reviewed both reveal sinus mechanism with no acute ST or T wave abnormalities noted. Initial EKG did reveal mild tachycardia better heart rate of 109. Chest x-ray is negative for an acute cardiopulmonary process. CTA is negative for pulmonary embolism with no evidence of coronary calcification. Laboratory data reviewed, WBC 12.5, hemoglobin 12.5, platelets 317, d-dimer 0.21, sodium 139, potassium 3.6, creatinine 0.59, magnesium 1.9, cardiac enzymes negative 3, proBNP 101, LDL 139, TSH 0.187. She takes no daily cardiac medications. At the time of my exam: CONSTITUTIONAL: Denies fever. Denies chills. EYES: Denies blurred vision. Denies vision changes. Denies eye pain. EARS, NOSE, MOUTH & THROAT: Denies headache. Denies sore throat. Denies ear pain. CARDIOVASCULAR: Denies chest pain. Denies shortness of breath. Denies orthopnea. Denies PND. Denies palpitations. RESPIRATORY: Denies cough. GASTROINTESTINAL: Denies abdominal pain. Denies diarrhea. Denies constipation. Denies nausea. Denies vomiting. MUSCULOSKELETAL: Denies myalgias. INTEGUMENTARY: Denies pruitis. Denies rash. NEUROLOGIC: Denies numbness. Denies tingling. Denies weakness. PSYCHIATRIC: Denies anxiety. Denies depression. ENDOCRINE: Denies fatigue. Denies weight change. Denies polydipsia. Denies polyurina. GENITOURINARY: Denies burning, hematuria or urgency with micturation. HEMATOLOGIC: Denies history of anemia. Denies bleeding. Blood pressure 125/86 heart rate 73 afebrile maintaining oxygen saturation on room air GENERAL: This is a 39-year-old female in no apparent distress at the time of my examination. HEENT: Head is atraumatic, normocephalic. Pupils are equal, round. Sclerae anicteric. Conjunctivae are clear. Mucous membranes of the mouth are moist. Neck is supple. There is no jugular venous distention. No carotid bruit is heard. LUNGS: Clear to auscultation no wheezes, rales or rhonchi. No chest wall tendern ess is noted on palpation or with deep breathing. HEART: Regular rate and rhythm without murmurs, rubs or gallops. S1 and S2 heard. ABDOMEN: Soft, nontender. Bowel sounds are heard. No organomegaly noted. EXTREMITIES: No evidence of peripheral edema and no calf tenderness noted. VASCULAR: Radial and dorsalis pedis pulses palpated, no evidence of clubbing. NEUROLOGIC: Patient is awake, alert and oriented x3. ASSESSMENT Chest pain, atypical for angina. An acute coronary event has been ruled out Leukocytosis History of juarez's esophagus and chronic pancreatitis PLAN An acute coronary event has been ruled out. Obtain 2D echocardiogram and doppler study to assess cardiac structure and fu nction. Perform stress echocardiogram and doppler study to assess for stress induced ischemia. Lifestyle modifications recommended for lowering of LDL cholesterol. If stress test is normal she may be discharged from a cardiac perspective. Thank you kindly for this consultation. Nurse Practitioner note has been reviewed, I agree with a documented findings and plan of care. Patient was seen and examined. Past Medical History Past Medical History: GERD/Reflux Additional Past Medical History / Comment(s): CHRONIC pancreatitis, hiatal hernia, Juarez's esophagus, migraines. History of Any Multi-Drug Resistant Organisms: None Reported Past Surgical History: Uterine Ablation Additional Past Surgical History / Comment(s): Laparoscopy x 2 d/t endometr iosis, uterine ablation, multiple egd's and ercp's, pancreatic stents-none in now because they fall out. ERCP, EGD Past Anesthesia/Blood Transfusion Reactions: Postoperative Nausea & Vomiting (PONV) Additional Past Anesthesia/Blood Transfusion Reaction / Comment(s): never had blood transfusion Past Psychological History: Anxiety, Depression Additional Psychological History / Comment(s): Pt resides with her spouse and 2 children at home and another child that is in the [place]. Pt is independent. 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 Smoking Status: Former smoker Past Alcohol Use History: None Reported Additional Past Alcohol Use History / Comment(s): PT STARTED SMOKING IN 1995 AND QUIT SMOKING 2003 Past Drug Use History: None Reported - Past Family History Mother Family Medical History: No Reported History Additional Family Medical History / Comment(s): Mother is healthy. Father Family Medical History: Hypertension Medications and Allergies Home Medications Medication Instructions Recorded Confirmed Type Citalopram Hydrobromide 20 mg PO DAILY 11/08/17 03/07/19 History [Citalopram HBr] Omeprazole 20 mg PO DAILY 09/30/18 03/07/19 History Allergies Allergy/AdvReac Type Severity Reaction Status Date / Time Iodinated Contrast- Oral and Allergy Severe Anaphylaxis Verified 03/07/19 16:49 IV Dye [Iodinated Contrast Media - IV Dye] latex Allergy Rash/Hives Verified 03/07/19 16:49 shellfish derived Allergy Anaphylaxis Verified 03/07/19 16:49 metoclopramide HCl AdvReac Facial Verified 03/07/19 16:49 [From Reglan] Twitching prochlorperazine edisylate AdvReac Facial Verified 03/07/19 16:49 [From Compazine] Twitching prochlorperazine maleate AdvReac Facial Verified 03/07/19 16:49 [From Compazine] Twitching promethazine HCl AdvReac Facial Verified 03/07/19 16:49 [From Phenergan] Twitching Physical Exam Vitals: Vital Signs Temp Pulse Pulse Resp BP BP Pulse Ox 03/08/19 07:25 97.8 F 73 18 125/86 96 03/08/19 04:00 97.8 F 83 18 124/80 94 L 03/08/19 00:00 89 18 03/07/19 23:47 98.2 F 89 18 112/70 96 03/07/19 21:42 98.2 F 82 18 132/84 97 03/07/19 21:10 89 18 03/07/19 20:29 97.8 F 87 18 123/70 95 03/07/19 18:41 76 18 139/83 97 03/07/19 17:13 89 18 125/75 99 03/07/19 15:36 97.9 F 104 H 18 135/85 99 Intake and Output 03/07/19 03/08/19 03/08/19 22:59 06:59 14:59 Intake Total 758.339 Balance 758.339 Intake: Intake, IV Titration 758.339 Amount Heparin Sod,Pork in 0.45% 58.339 NaCl 25,000 unit In 0.45 % NaCl 1 250ml.bag @ 8. 749 UNITS/KG/HR 10.001 mls/hr IV .Q24H UBALDO Rx#: [id number] Sodium Chloride 0.9% 1, 700 000 ml @ 999 mls/hr IV . Q1H1M STA Rx#:[id number] Other: # Voids 2 Weight 114.305 kg Results 03/08/19 07:04 03/07/19 16:04 Cardiac Enzymes 03/07/19 03/07/19 03/07/19 Range/Units 16:04 16:04 20:28 AST 20 (14-36) U/L Troponin I <0.012 <0.012 (0.000-0.034) ng/mL 03/08/19 Range/Units 01:41 AST (14-36) U/L Troponin I <0.012 (0.000-0.034) ng/mL Coagulation 03/07/19 03/08/19 03/08/19 Range/Units 16:04 01:41 07:04 PT 9.9 (9.0-12.0) sec APTT 24.5 30.3 H 41.4 H (22.0-30.0) sec Lipids 03/08/19 Range/Units 07:04 Triglycerides 122 (<150) mg/dL Cholesterol 246 H (<200) mg/dL HDL Cholesterol 83 H (40-60) mg/dL CBC 03/07/19 03/08/19 Range/Units 16:04 07:04 WBC 12.5 H (3.8-10.6) k/uL RBC 4.42 (3.80-5.40) m/uL Hgb 12.5 (11.4-16.0) gm/dL Hct 36.4 (34.0-46.0) % Plt Count 332 317 (150-450) k/uL Comprehensive Metabolic Panel 03/07/19 Range/Units 16:04 Sodium 139 (137-145) mmol/L Potassium 3.6 (3.5-5.1) mmol/L Chloride 106 (98-107) mmol/L Carbon Dioxide 24 (22-30) mmol/L BUN 6 L (7-17) mg/dL Creatinine 0.59 (0.52-1.04) mg/dL Glucose 91 (74-99) mg/dL Calcium 9.3 (8.4-10.2) mg/dL AST 20 (14-36) U/L ALT 22 (9-52) U/L Alkaline Phosphatase 81 (38-126) U/L Total Protein 6.8 (6.3-8.2) g/dL Albumin 4.1 (3.5-5.0) g/dL Current Medications Generic Name Dose Route Start Last Admin Trade Name Freq PRN Reason Stop Dose Admin Aspirin 325 mg 03/08/19 09:00 03/08/19 09:55 Aspirin PO 325 mg DAILY UBALDO Administration Heparin Sodium (Porcine) 0 unit 03/07/19 19:42 Heparin IV Q6HR PRN Low PTT Protocol Morphine Sulfate 4 mg 03/07/19 20:35 03/08/19 01:47 Morphine Sulfate (Inj) IVP 4 mg Q4HR PRN Administration Pain Nitroglycerin 0.4 mg 03/07/19 19:42 Nitrostat SUBLINGUAL Q5M PRN Chest Pain Intake and Output 03/07/19 03/08/19 03/08/19 22:59 06:59 14:59 Intake Total 758.339 Balance 758.339 Intake: Intake, IV Titration 758.339 Amount Heparin Sod,Pork in 0.45% 58.339 NaCl 25,000 unit In 0.45 % NaCl 1 250ml.bag @ 8. 749 UNITS/KG/HR 10.001 mls/hr IV .Q24H UBALDO Rx#: [id number] Sodium Chloride 0.9% 1, 700 000 ml @ 999 mls/hr IV . Q1H1M STA Rx#:[id number] Other: # Voids 2 Weight 114.305 kg 03/08/19 07:04 03/07/19 16:04
[2019-03-08 11:45] LABS: T4, Free (Free Thyroxine) 0.96 ng/dL (0.78-2.19)
--- NOTE | 2019-03-08 15:26 | P.HPIM ---
History of Present Illness H&P Date: 03/08/19 HISTORY AND PHYSICAL AND DISCHARGE SUMMARY: This is a 39-year-old female patient of Dr. Dover with past medical history significant for gastroesophageal reflux disease, Lagunas's esophagus and chronic pancreatitis. She denies prior history of coronary artery disease, hypertension and dyslipidemia. She recently had an ERCP with stent placement and removal on Wednesday. She states yesterday while she was walking back and forth from her vehicle to her home she developed a heavy pressure sensation in the anterior chest in the midsternal region radiating to her back and associated with shortness of breath and palpitations. She denies dizziness, nausea, vo miting or diaphoresis. There is no radiation to the arm, back, neck or jaw. She complains of shortness of breath with exertion. She states she had pain subside while she was at rest no other real alleviating factors. She does complain of palpitations. Patient does complain of being type pain that happened 3-4 times since her stress test related to her pancreas. Patient came into [facility] emergency center for evaluation. EKG sinus mechanism with no acute ST or T wave abnormalities noted. Chest x-ray is negative for an acute cardiopulmonary process. CTA is negative for pulmonary embolism with no evidence of coronary calcification. WBC 12.5, hemoglobin 12.5, platelets 317, d-dimer 0.21, sodium 139, potassium 3.6, creatinine 0.59, magnesium 1.9, cardiac enzymes negative 3, proBNP 101, LDL 139, TSH 0.187. Patient was placed on the observation unit and cardiology consult has been obtained. Stress echocardiogram and echocardiogram have been ordered. Stress echocardiogram revealed normal EKG response exercise, normal echocardiogram. Normal stress test with the patient. Patient will be discharged home today in stable condition. No medication changes have been made. Echocardiogram reveals EF of 55-60%, mild mitral regurgitation, trace tricuspid regurgitation. Past Medical History Past Medical History: GERD/Reflux Additional Past Medical History / Comment(s): CHRONIC pancreatitis, hiatal hernia, Lagunas's esophagus, migraines. History of Any Multi-Drug Resistant Organisms: None Reported Past Surgical History: Uterine Ablation Additional Past Surgical History / Comment(s): Laparoscopy x 2 d/t endometriosis, uterine ablation, multiple egd's and ercp's, pancreatic stents- none in now because they fall out. ERCP, EGD Past Anesthesia/Blood Transfusion Reactions: Postoperative Nausea & Vomiting (PONV) Additional Past Anesthesia/Blood Transfusion Reaction / Comment(s): never had blood transfusion Past Psychological History: Anxiety, Depression Additional Psychological History / Comment(s): Pt resides with her spouse and 2 children at home and another child that is in the [place]. Pt is independent. 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 Smoking Status: Former smoker Past Alcohol Use History: None Reported Additional Past Alcohol Use History / Comment(s): PT STARTED SMOKING IN 1995 AND QUIT SMOKING 2003. Patient denies any active smoking, no marijuana use. Past Drug Use History: None Reported - Past Family History Mother Family Medical History: No Reported History Additional Family Medical History / Comment(s): Mother is healthy. Father Family Medical History: Hypertension Medications and Allergies Home Medications Medication Instructions Recorded Confirmed Type Citalopram Hydrobromide 20 mg PO DAILY 11/08/17 03/07/19 History [Citalopram HBr] Omeprazole 20 mg PO DAILY 09/30/18 03/07/19 History Allergies Allergy/AdvReac Type Severity Reaction Status Date / Time Iodinated Contrast- Oral and Allergy Severe Anaphylaxis Verified 03/07/19 16:49 IV Dye [Iodinated Contrast Media - IV Dye] latex Allergy Rash/Hives Verified 03/07/19 16:49 shellfish derived Allergy Anaphylaxis Verified 03/07/19 16:49 metoclopramide HCl AdvReac Facial Verified 03/07/19 16:49 [From Reglan] Twitching prochlorperazine edisylate AdvReac Facial Verified 03/07/19 16:49 [From Compazine] Twitching prochlorperazine maleate AdvReac Facial Verified 03/07/19 16:49 [From Compazine] Twitching promethazine HCl AdvReac Facial Verified 03/07/19 16:49 [From Phenergan] Twitching Physical Exam Vitals: Vital Signs Temp Pulse Pulse Resp BP BP Pulse Ox 03/08/19 11:35 98.0 F 106 H 18 113/74 97 03/08/19 07:25 97.8 F 73 18 125/86 96 03/08/19 04:00 97.8 F 83 18 124/80 94 L 03/08/19 00:00 89 18 03/07/19 23:47 98.2 F 89 18 112/70 96 03/07/19 21:42 98.2 F 82 18 132/84 97 03/07/19 21:10 89 18 03/07/19 20:29 97.8 F 87 18 123/70 95 03/07/19 18:41 76 18 139/83 97 03/07/19 17:13 89 18 125/75 99 03/07/19 15:36 97.9 F 104 H 18 135/85 99 Intake and Output 03/07/19 03/08/19 03/08/19 22:59 06:59 14:59 Intake Total 758.339 Balance 758.339 Intake: Intake, IV Titration 758.339 Amount Heparin Sod,Pork in 0.45% 58.339 NaCl 25,000 unit In 0.45 % NaCl 1 250ml.bag @ 8. 749 UNITS/KG/HR 10.001 mls/hr IV .Q24H UBALDO Rx#: [id number] Sodium Chloride 0.9% 1, 700 000 ml @ 999 mls/hr IV . Q1H1M STA Rx#:[id number] Other: # Voids 2 Weight 114.305 kg 114.305 kg Gen: This is a morbidly obese 39-year-old female found resting in bed and in no acute distress. HEENT: Head is atraumatic, normocephalic. Pupils equal, round. Sclerae is anicteric. NECK: Supple. No JVD. No lymphadenopathy. No thyromegaly. LUNGS: Clear to auscultation. No wheezes or rhonchi. No intercostal retractions. HEART: Regular rate and rhythm. No murmur. ABDOMEN: Soft. Bowel sounds are present. No masses. No tenderness. EXTREMITIES: No pedal edema. No calf tenderness. NEUROLOGICAL: Patient is awake, alert and oriented x3. Cranial nerves 2 through 12 are grossly intact. Results CBC & Chem 7: 03/08/19 07:04 03/07/19 16:04 Labs: Abnormal Lab Results - Last 24 Hours (Table) 03/07/19 03/07/19 03/08/19 Range/Units 16:04 16:04 01:41 WBC 12.5 H (3.8-10.6) k/uL Neutrophils # 9.2 H (1.3-7.7) k/uL APTT 30.3 H (22.0-30.0) sec BUN 6 L (7-17) mg/dL Cholesterol (<200) mg/dL LDL Cholesterol, Calc (0-99) mg/dL HDL Cholesterol (40-60) mg/dL TSH (0.465-4.680) mIU/L 03/08/19 03/08/19 03/08/19 Range/Units 07:04 07:04 07:04 WBC (3.8-10.6) k/uL Neutrophils # (1.3-7.7) k/uL APTT 41.4 H (22.0-30.0) sec BUN (7-17) mg/dL Cholesterol 246 H (<200) mg/dL LDL Cholesterol, Calc 139 H (0-99) mg/dL HDL Cholesterol 83 H (40-60) mg/dL TSH 0.187 L (0.465-4.680) mIU/L Thrombosis Risk Factor Assmnt - Choose All That Apply Any of the Below Risk Factors Present?: Yes Each Factor Represents 1 point: Acute LA, Obesity (BMI >25) Other Risk Factors: No Other congenital or acquired thrombophilia - If yes, enter type in comment: No Thrombosis Risk Factor Assessment Total Risk Factor Score: 2 Thrombosis Risk Factor Assessment Level: Low Risk Assessment and Plan Plan: 1. Chest pain, acute coronary syndrome ruled out. Chest pain possibly related to gastroesophageal reflux disease or recent removal of stents. Echocardiogram and stress echocardiogram as above. 2. Chronic pancreatitis status post stent placement with removal on Wednesday. 3. Hiatal hernia, gastroesophageal reflux disease, Lagunas's esophagus. 4. Recurrent depression. Continue citalopram. Patient placed as an observation status. Discharge plan: Return home Impression and plan of care have been directed as dictated by the signing physician. Nallely Peterson nurse practitioner acting as scribe for signing physician.
[2019-03-08 16:13] VITALS: BP 117/79; PULSE 87; RESP 17; TEMP 97.7
--- NOTE | 2019-03-08 18:18 | ECHOS ---
STRESS ECHOCARDIOGRAM INDICATIONS: Chest pain. MEDICATIONS: BASELINE HEART RATE: 95 BASELINE BLOOD PRESSURE: 129/60 MAXIMUM HEART RATE: 171 MAXIMUM BLOOD PRESSURE: 176/52 85% MPHR: 153 100% MPHR: 180 METS: 8.3 MAXIMUM STAGE REACHED: 3 TOTAL EXERCISE TIME: 7:00 CLINICAL INFORMATION: STRESS DATA: Heart rate 95. Pressure 129/60. Baseline EKG showed sinus mechanism. The patient exercised on the treadmill according to Samuel protocol for a total of 7 minutes and achieved 8.3 METS. Maximum heart rate was 171, which is about 95% of maximum predicted heart rate. Maximum blood pressure was 176/52 mmHg. Clinically the patient did not have any symptoms of chest pain or discomfort and the EKG did not show any significant ST or T-wave abnormalities concerning for ischemia. Echocardiogram images from parasternal long axis view, parasternal short axis view, apical 4-chamber and apical 2-chamber views were obtained as the baseline images, at the peak of the heart rate as well as on recovery. The echocardiogram images showed good augmentation in the left ventricular systolic function without any evidence of wall motion abnormalities concerning for ischemia. CONCLUSION: 1. Good exercise tolerance. 2. Normal EKG in response to exercise. 3. Normal echocardiogram in response to exercise. 4. Essentially normal stress test for the patient. MMODL / IJN: [id number] /
--- NOTE | 2019-03-09 14:21 | ECHOF ---
Referral Reason:cp MEASUREMENTS -------- HEIGHT: 162.6 cm WEIGHT: 114.3 kg BP: 125/86 RVIDd: 2.7 cm (< 3.3) IVSd: 0.9 cm (0.6 - 1.1) LVIDd: 4.0 cm (3.9 - 5.3) LVPWd: 1.1 cm (0.6 - 1.1) IVSs: 1.3 cm LVIDs: 2.8 cm LVPWs: 1.6 cm LAESV Index (A-L): 17.37 ml/m Ao Diam: 2.4 cm (2.0 - 3.7) AV Cusp: 2.0 cm (1.5 - 2.6) LA Diam: 3.2 cm (2.7 - 3.8) MV EXCURSION: 16.594 mm (> 18.000) MV EF SLOPE: 93 mm/s (70 - 150) EPSS: 0.6 cm MV E Artis: 1.12 m/s MV DecT: 154 ms MV A Artis: 1.15 m/s MV E/A Ratio: 0.98 RAP: 5.00 mmHg RVSP: 25.71 mmHg FINDINGS -------- Sinus rhythm. This was a technically difficult study with suboptimal views. The left ventricular size is normal. Left ventricular wall thickness is normal. Overall left vent ricular systolic function is normal with, an EF between 55 - 60 %. The diastolic filling pattern is normal for the age of the patient 13.32. The right ventricle is normal in size. Normal LA size by volume 22+/-6 ml/m2. The right atrial size is normal. Lumason used The aortic valve is trileaflet and appears structurally normal. The mitral valve is normal. Mild mitral regurgitation is present. The tricuspid valve appears structurally normal. Trace tricuspid regurgitation present. Right manjit tricular systolic pressure is normal at < 35 mmHg. There is no pulmonic regurgitation present. The aortic root size is normal. IVC Not well visulized. There is no pericardial effusion. CONCLUSIONS -------- 1. Sinus rhythm. 2. This was a technically difficult study with suboptimal views. 3. The left ventricular size is normal. 4. Left ventricular wall thickness is normal. 5. Overall left ventricular systolic function is normal with, an EF between 55 - 60 %. 6. The diastolic filling pattern is normal for the age of the patient 13.32 7. The right ventricle is normal in size. 8. Normal LA size by volume 22+/-6 ml/m2. 9. The right atrial size is normal. 10. Lumason used 11. The aortic valve is trileaflet and appears structurally normal. 12. The mitral valve is normal. 13. Mild mitral regurgitation is present. 14. The tricuspid valve appears structurally normal. 15. Trace tricuspid regurgitation present. 16. Right ventricular systolic pressure is normal at < 35 mmHg. 17. There is no pulmonic regurgitation present. 18. The aortic root size is normal. 19. IVC Not well visulized. 20. There is no pericardial effusion. INSURANCE COMPLIANCE ANALYST: Franca Mcnamara RDCS
== END 2019-03-08 18:48 | disposition home or self-care (01) ==
LOC: EC 15:26 → 1SOBS 19:43
PROVIDERS: ADMIT Internal Medicine; ATTEND Internal Medicine
DX: R07.89 Other chest pain (principal); R00.0 Tachycardia, unspecified; R06.02 Shortness of breath; R00.2 Palpitations; D72.829 Elevated white blood cell count, unspecified; M79.605 Pain in left leg; M79.604 Pain in right leg; K21.9 Gastro-esophageal reflux disease without esophagitis; K44.9 Diaphragmatic hernia without obstruction or gangrene; K22.70 Barrett's esophagus without dysplasia; K86.1 Other chronic pancreatitis; G43.909 Migraine, unspecified, not intractable, without status migrainosus; F41.9 Anxiety disorder, unspecified; F33.9 Major depressive disorder, recurrent, unspecified; E66.01 Morbid (severe) obesity due to excess calories; Z68.41 Body mass index [BMI] 40.0-44.9, adult; Z87.891 Personal history of nicotine dependence; Z79.899 Other long term (current) drug therapy; Z88.8 Allergy status to other drugs, medicaments and biological substances; Z91.041 Radiographic dye allergy status; Z91.040 Latex allergy status; Z91.013 Allergy to seafood; Z82.49 Family history of ischemic heart disease and other diseases of the circulatory system
CPT/HCPCS: 96366 ×2; 96375; 96376; 96361; 96365; 99291; 36415; 93005; 93306; 93351; 85379; 84439; 83880; 80061; 80053; 84443; 83690; 83735; 84484 ×2; 85025; 85049; 85610; 85730 ×2; 71046; 71275; G0378 ×2; J2270 ×2; J1200; J1644 ×2; J2930; Q9950; Q9967

== ENCOUNTER → 2019-03-17 | Outpatient (CLI) | payer MEDICAID, OTHER ==
--- NOTE | 2019-03-21 18:12 | HM ---
HOLTER MONITOR REPORT The patient was monitored for 24 hours. Baseline rhythm is a sinus mechanism with normal conduction. The average rate 93 beats per minute. Minimum 69. Maximum 145 beats per minute. Ventricular ectopic activity was present in the form of rare single PVCs. Supraventricular ectopic activity was present in the form of rare single PACs. Symptoms of palpitations at times correlated with single PVCs, but not on a consistent basis. CONCLUSION: 1. Sinus mechanism baseline rhythm. 2. Rare ventricular ectopic activity. 3. Rare supraventricular ectopic activity. 4. Symptoms of palpitation correlated at times with single PVCs. MMODL / IJN: [id number] /
== END ==
LOC: RADECHMAIN 11:57
PROVIDERS: ATTEND Internal Medicine
DX: I49.3 Ventricular premature depolarization (principal)
CPT/HCPCS: 93225; 93226

== ENCOUNTER 2019-04-20 07:16 | Inpatient (IN) | payer MEDICAID, OTHER ==
[2019-04-20] MEDS ORDERED: SODIUM CHLORIDE 0.9% 2,000 ML IV STA (07:46)
[2019-04-20] MEDS ORDERED: SODIUM CHLORIDE 0.9% 1,000 ML IV STA (07:46)
[2019-04-20] MEDS ORDERED: KETOROLAC 30 MG/ML 1 ML VIAL IVP STA (07:59)
[2019-04-20] MEDS ORDERED: MORPHINE SULFATE 4 MG/ML SYRINGE IVP STA (07:59)
[2019-04-20] MEDS ORDERED: ONDANSETRON 4 MG/2 ML VIAL IVP STA (07:59)
--- NOTE | 2019-04-20 08:06 | ED ---
Abdominal Pain HPI - General Chief Complaint: Abdominal Pain Stated Complaint: Abd Pain Time Seen by Provider: 04/20/19 07:45 Source: patient, RN notes reviewed, old records reviewed Mode of arrival: ambulatory Limitations: no limitations - History of Present Illness Initial Comments: Patient's 39-year-old female with history of chronic pancreatitis. She presents today for concerns for a flareup of her pancreatitis. She states that since 1 AM she's been having epigastric left-sided upper abdominal pain. Patient has had no specific fever or chills. Patient states that she sees multiple GI specialist in regards to her chronic pancreatitis. She reports is related to a divisum of her pancreas. Patient states that she had some stenting placed and then removed in February of this past year. She's had no flareup since then. - Related Data Home Medications Medication Instructions Recorded Confirmed Citalopram Hydrobromide 20 mg PO DAILY 11/08/17 03/07/19 [Citalopram HBr] Omeprazole 20 mg PO DAILY 09/30/18 03/07/19 Allergies Allergy/AdvReac Type Severity Reaction Status Date / Time Iodinated Contrast Media Allergy Severe Anaphylaxis Verified 04/20/19 07:35 [Iodinated Contrast Media - IV Dye] latex Allergy Rash/Hives Verified 04/20/19 07:35 shellfish derived Allergy Anaphylaxis Verified 04/20/19 07:35 metoclopramide HCl AdvReac Facial Verified 04/20/19 07:35 [From Reglan] Twitching prochlorperazine edisylate AdvReac Facial Verified 04/20/19 07:35 [From Compazine] Twitching prochlorperazine maleate AdvReac Facial Verified 04/20/19 07:35 [From Compazine] Twitching promethazine HCl AdvReac Facial Verified 04/20/19 07:35 [From Phenergan] Twitching Review of Systems ROS Statement: Those systems with pertinent positive or pertinent negative responses have been documented in the HPI. ROS Other: All systems not noted in ROS Statement are negative. Past Medical History Past Medical History: GERD/Reflux Additional Past Medical History / Comment(s): CHRONIC pancreatitis, hiatal hernia, Lagunas's esophagus, migraines. History of Any Multi-Drug Resistant Organisms: None Reported Past Surgical History: Uterine Ablation Additional Past Surgical History / Comment(s): Laparoscopy x 2 d/t endometriosis, uterine ablation, multiple egd's and ercp's, pancreatic stents- none in now because they fall out. ERCP, EGD Past Anesthesia/Blood Transfusion Reactions: Postoperative Nausea & Vomiting (PONV) Additional Past Anesthesia/Blood Transfusion Reaction / Comment(s): never had blood transfusion Past Psychological History: Anxiety, Depression Smoking Status: Former smoker Past Alcohol Use History: None Reported Past Drug Use History: None Reported - Past Family History Mother Family Medical History: No Reported History Additional Family Medical History / Comment(s): Mother is healthy. Father Family Medical History: Hypertension General Exam - General Exam Comments Initial Comments: 39-year-old female. Alert and oriented 3. Limitations: no limitations General appearance: alert, in no apparent distress Head exam: Present: atraumatic, normocephalic, normal inspection Eye exam: Present: normal appearance, PERRL, EOMI. Absent: scleral icterus, conjunctival injection, periorbital swelling ENT exam: Present: normal exam, mucous membranes moist Neck exam: Present: normal inspection. Absent: tenderness, meningismus, lymphadenopathy Respiratory exam: Present: normal lung sounds bilaterally. Absent: respiratory distress, wheezes, rales, rhonchi, stridor Cardiovascular Exam: Present: regular rate, normal rhythm, normal heart sounds. Absent: systolic murmur, diastolic murmur, rubs, gallop, clicks GI/Abdominal exam: Present: soft, tenderness (Left upper and epigastric tenderness.), normal bowel sounds. Absent: distended, guarding, rebound, rigid Extremities exam: Present: normal inspection, full ROM, normal capillary refill. Absent: tenderness, pedal edema, joint swelling, calf tenderness Back exam: Present: normal inspection Neurological exam: Present: alert, oriented X3, CN II-XII intact Psychiatric exam: Present: normal affect, normal mood Course Vital Signs 04/20/19 04/20/19 07:32 08:14 Temperature 98.0 F Pulse Rate 99 78 Respiratory 18 18 Rate Blood Pressure 116/75 123/74 O2 Sat by Pulse 96 95 Oximetry Medical Decision Making - Medical Decision Making 39-year-old female presents emergency room stay for evaluation for epigastric and left-sided abdominal pain. She is concerned for exacerbation of her chronic pancreatitis. She is given IV fluids antiemetics and IV pain medication. Reevaluation she is resting comfortably in bed. She has history of chronic pancreatitis related to diffvision in the pancreas. She follows with Dr. Sandra.Patient has an elevation of amylase at 317, and lipase is 1865. Other chemistry panels white blood cell count is unremarkable. Patient will be admitted at this time for IV fluids, and consultation GI. Dr. CUMMINGS and discussed the case with Dr. Wilcox. - Lab Data Result diagrams: 04/20/19 08:00 04/20/19 08:00 Lab Results 04/20/19 04/20/19 04/20/19 Range/Units 08:00 08:00 08:00 WBC 11.3 H (3.8-10.6) k/uL RBC 4.71 (3.80-5.40) m/uL Hgb 13.7 (11.4-16.0) gm/dL Hct 40.0 (34.0-46.0) % MCV 84.9 (80.0-100.0) fL MCH 29.2 (25.0-35.0) pg MCHC 34.4 (31.0-37.0) g/dL RDW 12.6 (11.5-15.5) % Plt Count 381 (150-450) k/uL Neutrophils % 71 % Lymphocytes % 22 % Monocytes % 4 % Eosinophils % 1 % Basophils % 1 % Neutrophils # 8.0 H (1.3-7.7) k/uL Lymphocytes # 2.5 (1.0-4.8) k/uL Monocytes # 0.5 (0-1.0) k/uL Eosinophils # 0.2 (0-0.7) k/uL Basophils # 0.1 (0-0.2) k/uL PT 9.6 (9.0-12.0) sec INR 0.9 (<1.2) APTT 24.1 (22.0-30.0) sec Sodium 140 (137-145) mmol/L Potassium 4.8 (3.5-5.1) mmol/L Chloride 109 H (98-107) mmol/L Carbon Dioxide 22 (22-30) mmol/L Anion Gap 9 mmol/L BUN 8 (7-17) mg/dL Creatinine 0.68 (0.52-1.04) mg/dL Est GFR (CKD-EPI)AfAm >90 (>60 ml/min/1.73 sqM) Est GFR (CKD-EPI)NonAf >90 (>60 ml/min/1.73 sqM) Glucose 106 H (74-99) mg/dL Calcium 9.0 (8.4-10.2) mg/dL Total Bilirubin 0.3 (0.2-1.3) mg/dL AST 19 (14-36) U/L ALT 20 (9-52) U/L Alkaline Phosphatase 70 (38-126) U/L Total Protein 6.4 (6.3-8.2) g/dL Albumin 3.7 (3.5-5.0) g/dL Amylase 317 H* (30-110) U/L Lipase 1865 H (23-300) U/L Urine Color Urine Appearance (Clear) Urine pH (5.0-8.0) Ur Specific Issue (1.001-1.035) Urine Protein (Negative) Urine Glucose (UA) (Negative) Urine Ketones (Negative) Urine Blood (Negative) Urine Nitrite (Negative) Urine Bilirubin (Negative) Urine Urobilinogen (<2.0) mg/dL Ur Leukocyte Esterase (Negative) 04/20/19 Range/Units 08:00 WBC (3.8-10.6) k/uL RBC (3.80-5.40) m/uL Hgb (11.4-16.0) gm/dL Hct (34.0-46.0) % MCV (80.0-100.0) fL MCH (25.0-35.0) pg MCHC (31.0-37.0) g/dL RDW (11.5-15.5) % Plt Count (150-450) k/uL Neutrophils % % Lymphocytes % % Monocytes % % Eosinophils % % Basophils % % Neutrophils # (1.3-7.7) k/uL Lymphocytes # (1.0-4.8) k/uL Monocytes # (0-1.0) k/uL Eosinophils # (0-0.7) k/uL Basophils # (0-0.2) k/uL PT (9.0-12.0) sec INR (<1.2) APTT (22.0-30.0) sec Sodium (137-145) mmol/L Potassium (3.5-5.1) mmol/L Chloride (98-107) mmol/L Carbon Dioxide (22-30) mmol/L Anion Gap mmol/L BUN (7-17) mg/dL Creatinine (0.52-1.04) mg/dL Est GFR (CKD-EPI)AfAm (>60 ml/min/1.73 sqM) Est GFR (CKD-EPI)NonAf (>60 ml/min/1.73 sqM) Glucose (74-99) mg/dL Calcium (8.4-10.2) mg/dL Total Bilirubin (0.2-1.3) mg/dL AST (14-36) U/L ALT (9-52) U/L Alkaline Phosphatase (38-126) U/L Total Protein (6.3-8.2) g/dL Albumin (3.5-5.0) g/dL Amylase (30-110) U/L Lipase (23-300) U/L Urine Color Light Yellow Urine Appearance Clear (Clear) Urine pH 7.5 (5.0-8.0) Ur Specific Issue 1.008 (1.001-1.035) Urine Protein Negative (Negative) Urine Glucose (UA) Negative (Negative) Urine Ketones Negative (Negative) Urine Blood Negative (Negative) Urine Nitrite Negative (Negative) Urine Bilirubin Negative (Negative) Urine Urobilinogen <2.0 (<2.0) mg/dL Ur Leukocyte Esterase Negative (Negative) Disposition Clinical Impression: Pancreatic divisum, Pancreatitis Disposition: ADMITTED IP TO THIS [facility] Condition: Stable Additional Instructions: Please use medication as discussed. Please follow up with family doctor if symptoms have not improved over the next two days. Please return to the emergency room if your symptoms increase or worsen or for any other concerns. Is patient prescribed a controlled substance at d/c from ED?: No Referrals: Carter Dover MD [Primary Care Provider] - 1-2 days Time of Disposition: 09:16
[2019-04-20 08:19] LABS: Basophils # (A) 0.1 k/uL (0-0.2); Basophils % (A) 1 %; Eosinophils # (A) 0.2 k/uL (0-0.7); Eosinophils % (A) 1 %; HGB 13.7 gm/dL (11.4-16.0); Lymphocytes # (A) 2.5 k/uL (1.0-4.8); Lymphocytes % (A) 22 %; MCH 29.2 pg (25.0-35.0); MCHC 34.4 g/dL (31.0-37.0); MCV 84.9 fL (80.0-100.0); Mean Platelet Volume 5.8; Monocytes # (A) 0.5 k/uL (0-1.0); Monocytes % (A) 4 %; Neutrophils % (A) 71 %; Platelet Count 381 k/uL (150-450); RBC 4.71 m/uL (3.80-5.40); RDW 12.6 % (11.5-15.5); WBC 11.3 k/uL (3.8-10.6)
[2019-04-20 08:31] LABS: ALT 20 U/L (9-52); AST 19 U/L (14-36); African American GFR (CKD) >90 (>60 ml/min/1.73 sqM); Albumin 3.7 g/dL (3.5-5.0); Alkaline Phosphatase 70 U/L (38-126); Anion Gap 9 mmol/L; Blood Urea Nitrogen 8 mg/dL (7-17); Carbon Dioxide 22 mmol/L (22-30); Chloride 109 mmol/L (98-107); Glucose 106 mg/dL (74-99); Potassium 4.8 mmol/L (3.5-5.1); Sodium 140 mmol/L (137-145); Total Bilirubin 0.3 mg/dL (0.2-1.3); Total Protein 6.4 g/dL (6.3-8.2)
[2019-04-20 08:37] LABS: INR 0.9 (<1.2); Partial Thromboplastin Time 24.1 sec (22.0-30.0); Prothrombin Time 9.6 sec (9.0-12.0)
[2019-04-20 08:39] LABS: Appearance,Urine Clear (Clear); Bilirubin,Urine Negative (Negative); Blood,Urine Negative (Negative); Color,Urine Light Yellow; Glucose,Urine (UA) Negative (Negative); Ketones,Urine Negative (Negative); Leukocyte Esterase,Urine Negative (Negative); Nitrite,Urine Negative (Negative); PH, Urine 7.5 (5.0-8.0); Protein,Urine Negative (Negative); Specific Gravity,Urine 1.008 (1.001-1.035); Urobilinogen,Urine <2.0 mg/dL (<2.0)
[2019-04-20] MEDS ORDERED: HYDROmorphone 1 MG/ML 1 ML SYRINGE IVP STA (08:42)
[2019-04-20 08:46] LABS: Amylase 317 U/L (30-110)
[2019-04-20] MEDS ORDERED: NALOXONE 0.4 MG/ML 1 ML VIAL IV PRN (09:16)
[2019-04-20] MEDS ORDERED: KETOROLAC 30 MG/ML 1 ML VIAL IVP PRN (09:16)
[2019-04-20] MEDS ORDERED: ACETAMINOPHEN TAB 325 MG TAB PO PRN (09:16)
[2019-04-20] MEDS ORDERED: IBUPROFEN 400 MG TAB PO PRN (09:16)
[2019-04-20] MEDS ORDERED: ONDANSETRON 4 MG/2 ML VIAL IVP PRN (09:16)
[2019-04-20 10:11] VITALS: BMI 45.0
[2019-04-20] MEDS: HYDROmorphone 1 MG/ML 1 ML SYRINGE IVP PRN ×4 (11:02→22:49)
[2019-04-20] MEDS: SODIUM CHLORIDE 0.9% 1,000 ML IV SCH ×2 (12:17→20:53)
[2019-04-20] MEDS ORDERED: LORazepam 0.5 MG TAB PO PRN (15:22)
--- NOTE | 2019-04-20 15:25 | P.HPIM ---
History of Present Illness H&P Date: 04/20/19 This is a 39-year-old female patient of Dr. Dover with past medical history significant for gastroesophageal reflux disease, Lagunas's esophagus and chronic pancreatitis, pancreatic divisum. She has seen Dr. Sandra in the past as well as [facility]. Since her last admission in January for pancreatitis, patient states that she underwent ERCP stent placement January 24 and in February had this removed. Surgeon was expecting this to give some relief but if not then surgery will be likely. She complains of abdominal pain that started 1 AM this morning epigastric and right upper quadrant. She complains of nausea without vomiting. Patient came into [facility] for evaluation, she was afebrile, heart rate 99, blood pressure 116/75, pulse ox 96% on room air. WBC 11.3. Creatinine 0.68. Amylase 317, lipase 1865. Liver function tests within normal limits. Urinalysis negative for UTI. She was started on Dilaudid, Toradol, Protonix and IV fluids and [facility]. Consult in place with GI. Review of Systems Constitutional: Reports poor appetite, Denies anorexia, Denies chills, Denies lethargy, Denies weakness Eyes: denies blurred vision, denies pain Ears, nose, mouth and throat: Denies headache, Denies nasal congestion, Denies nasal discharge, Denies sore throat, Denies vertigo Cardiovascular: Denies chest pain, Denies dyspnea on exertion, Denies edema, Denies leg edema, Denies lightheadedness, Denies shortness of breath, Denies syncope Respiratory: Denies cough, Denies cough with sputum, Denies dyspnea, Denies excessive sputum, Denies hemoptysis, Denies home oxygen, Denies respiratory infections, Denies wheezing Gastrointestinal: Reports abdominal pain, Reports loss of appetite, Reports nausea, Denies constipation, Denies diarrhea, Denies vomiting Genitourinary: Denies dysuria, Denies hematuria, Denies urgency, Denies urinary frequency Musculoskeletal: Denies frequent falls, Denies gait dysfunction, Denies myalgias Integumentary: Denies pruritus, Denies rash, Denies wounds Neurological: Denies change in mentation, Denies change in speech, Denies numbness, Denies seizures, Denies weakness Psychiatric: Denies anxiety, Denies depression Endocrine: Denies fatigue, Denies weight change Past Medical History Past Medical History: GERD/Reflux Additional Past Medical History / Comment(s): Chronic pancreatitis, hiatal he rnia, Lagunas's esophagus, migraines. History of Any Multi-Drug Resistant Organisms: None Reported Past Surgical History: Uterine Ablation Additional Past Surgical History / Comment(s): Laparoscopy x 2 d/t endometriosis, uterine ablation, multiple egd's and ercp's, pancreatic stents- none in now Past Anesthesia/Blood Transfusion Reactions: Postoperative Nausea & Vomiting (PONV) Additional Past Anesthesia/Blood Transfusion Reaction / Comment(s): never had blood transfusion Smoking Status: Former smoker Additional Past Alcohol Use History / Comment(s): Patient was a smoker for 8 years and quit in 2003. No marijuana use. No alcohol use. - Past Family History Mother Family Medical History: No Reported History Additional Family Medical History / Comment(s): Mother is healthy. Father Family Medical History: Hypertension Medications and Allergies Home Medications Medication Instructions Recorded Confirmed Type Citalopram Hydrobromide 20 mg PO DAILY 11/08/17 04/20/19 History [Citalopram HBr] Omeprazole 20 mg PO DAILY 09/30/18 04/20/19 History LORazepam [Ativan] 0.5 mg PO BID PRN 04/20/19 04/20/19 History Metoprolol Tartrate [Lopressor] 12.5 mg PO BID 04/20/19 04/20/19 History traMADol HCL 50 mg PO TID PRN 04/20/19 04/20/19 History Allergies Allergy/AdvReac Type Severity Reaction Status Date / Time Iodinated Contrast Media Allergy Severe Anaphylaxis Verified 04/20/19 09:59 [Iodinated Contrast Media - IV Dye] latex Allergy Rash/Hives Verified 04/20/19 09:59 shellfish derived Allergy Anaphylaxis Verified 04/20/19 09:59 metoclopramide HCl AdvReac Facial Verified 04/20/19 09:59 [From Reglan] Twitching prochlorperazine edisylate AdvReac Facial Verified 04/20/19 09:59 [From Compazine] Twitching prochlorperazine maleate AdvReac Facial Verified 04/20/19 09:59 [From Compazine] Twitching promethazine HCl AdvReac Facial Verified 04/20/19 09:59 [From Phenergan] Twitching Physical Exam Vitals: Vital Signs Temp Pulse Resp BP Pulse Ox 04/20/19 13:15 80 18 110/60 98 04/20/19 12:16 85 18 108/50 100 04/20/19 11:04 101 H 16 98/60 95 04/20/19 09:00 82 15 113/60 93 L 04/20/19 08:15 76 13 95 04/20/19 08:14 78 18 123/74 95 04/20/19 07:32 98.0 F 99 18 116/75 96 Intake and Output 04/19/19 04/20/19 04/20/19 22:59 06:59 14:59 Other: Weight 118.932 kg Gen: This is a morbidly obese 39-year-old female found resting in bed and in no acute distress. HEENT: Head is atraumatic, normocephalic. Pupils equal, round. Sclerae is anicteric. NECK: Supple. No JVD. No lymphadenopathy. No thyromegaly. LUNGS: Clear to auscultation. No wheezes or rhonchi. No intercostal retractions. HEART: Regular rate and rhythm. No murmur. ABDOMEN: Soft. Bowel sounds are present. No masses. Right upper quadrant tend erness. EXTREMITIES: No pedal edema. No calf tenderness. NEUROLOGICAL: Patient is awake, alert and oriented x3. Cranial nerves 2 through 12 are grossly intact. Results CBC & Chem 7: 04/20/19 08:00 04/20/19 08:00 Labs: Abnormal Lab Results - Last 24 Hours (Table) 04/20/19 04/20/19 Range/Units 08:00 08:00 WBC 11.3 H (3.8-10.6) k/uL Neutrophils # 8.0 H (1.3-7.7) k/uL Chloride 109 H (98-107) mmol/L Glucose 106 H (74-99) mg/dL Amylase 317 H* (30-110) U/L Lipase 1865 H (23-300) U/L Thrombosis Risk Factor Assmnt - DVT/VTE Prophylaxis DVT/VTE Prophylaxis: Pharmacologic Prophylaxis ordered - Choose All That Apply Any of the Below Risk Factors Present?: Yes Each Factor Represents 1 point: Obesity (BMI >25) Other Risk Factors: No Other congenital or acquired thrombophilia - If yes, enter type in comment: No Thrombosis Risk Factor Assessment Total Risk Factor Score: 1 Thrombosis Risk Factor Assessment Level: Low Risk Assessment and Plan Plan: 1. Acute pancreatitis with pancreatic divisum. Consult with GI. Nothing by mouth status will be changed to clear liquids. Continue Dilaudid and Toradol for pain control. 2. Chronic pancreatitis status post stent placement with removal this past summer. 3. Hiatal hernia, gastroesophageal reflux disease, Lagunas's esophagus. Protonix, Carafate 4. Recurrent depression and generalized anxiety disorder. Continue citalopram 20 mg daily and lorazepam 0.5 mg twice daily as needed. 5. Hypertension. Continue Lopressor 12.5 mg twice daily. 6. DVT prophylaxis. Heparin subcu. 7. Vitamin B-12 and vitamin D deficiencies. Supplements. Patient will be admitted to the hospital for a minimum of 2 night stay. Discharge plan: Return home Impression and plan of care have been directed as dictated by the signing physician. Nallely Peterson nurse practitioner acting as scribe for signing physician.
[2019-04-20] MEDS: SUCRALFATE 1 GM TAB PO SCH ×2 (16:21→20:53)
[2019-04-20] MEDS: METOPROLOL TARTRATE 12.5 MG TAB PO SCH (20:53)
[2019-04-20] MEDS: HEPARIN SODIUM,PORCINE 5,000 UNIT/ML 1 ML VIAL SQ SCH (20:54)
--- NOTE | 2019-04-20 23:07 | CONS ---
CONSULTATION DATE OF DICTATION: 04/20/2019 REASON FOR CONSULTATION: Acute recurrent pancreatitis. HISTORY OF PRESENT ILLNESS: The patient is a 39-year-old pleasant white female who was admitted to the hospital with acute onset of severe epigastric pain that started at 1a.m. The pain continued to progressively get worse and she came to the emergency room, was noted to have elevated amylase and lipase consistent with acute pancreatitis and hence admitted to the hospital. The patient has been having attacks of acute pancreatitis since 2008. She was investigated extensively at [facility] and recently at [facility]. She sees Dr. Preciado, a key person, and was diagnosed with pancreatic divisum in the past. She underwent ERCP with pancreatic duct placement in January of 2019. After that she had done well. This is her first attack of pancreatitis since the ERCP. Prior to that patient has been having attacks of pancreatitis once every 3-6 months for the last 10 years' duration. Her last hospitalization was in October of this year. She reports no fever, chills, night sweats. PAST MEDICAL HISTORY: Her past medical history is significant for: 1. Acute recurrent pancreatitis with multiple hospitalizations in the past. 2. History of GERD. 3. Migraine. PAST SURGICAL HISTORY: 1. Uterine ablation. 2. Multiple ERCPs with a pancreatic stent placed. 3. Multiple EGDs. MEDICATIONS: Medications at home include citalopram and omeprazole. ALLERGIES: 1. PROCHLORPERAZINE. 2. METOCLOPRAMIDE. 3. IV DYE. 4. PROMETHAZINE. SOCIAL HISTORY: No smoking. No alcohol use. FAMILY HISTORY: Mother unremarkable. Father hypertension. REVIEW OF SYSTEMS: CARDIOPULMONARY: No chest pain or shortness of breath. GENITOURINARY: No dysuria or hematuria. MUSCULOSKELETAL: Unremarkable. SKIN: Unremarkable. ENDOCRINE: Unremarkable. PSYCHIATRIC: Unremarkable. NEUROLOGY: Unremarkable. ENT/VISION: Unremarkable. CONSTITUTIONAL: No recent weight loss. No fever, chills, night sweats. PHYSICAL EXAMINATION: She appears comfortable. No apparent distress. VITAL SIGNS: Stable. Blood pressure is 112/82, pulse rate 89 per minute. Temperature 98. HEENT examination unremarkable. Conjunctivae pink. Sclerae anicteric. Oral cavity no lesions. NECK: No JVD or lymph node enlargement. CHEST: Clear to auscultation. HEART: Regular rate and rhythm. ABDOMEN: Soft. Bowel sounds are positive. No organomegaly. There was mild tenderness in the epigastric area. EXTREMITIES: No pedal edema. SKIN: No rashes. NEUROLOGIC: Alert and oriented x3. No focal deficits. LABS: Labs done at the time of admission to the hospital: WBC 11.3, hemoglobin 13.7, platelets normal. Amylase 317, lipase 1865. ALT, AST, total bilirubin and alkaline phosphatase are within normal limits. IMPRESSION: Acute recurrent pancreatitis with multiple hospitalizations over the last 10 years. Her last hospitalization was in October of this year. She underwent ERCP with pancreatic duct stent placement at [facility] by Dr. Preciado in January of this year for acute recurrent pancreatitis. Etiology of pancreatitis appears to be related to pancreatic divisum. RECOMMENDATIONS: 1. N.p.o. except ice chips. 2. Pain medications as needed. 3. IV hydration. 4. If her symptoms are better tomorrow, she can be started on a clear liquid diet. Thank you for this consultation. Will follow her closely during her hospital stay. MMODL / IJN: [id number] /
[2019-04-21] MEDS: SODIUM CHLORIDE 0.9% 1,000 ML IV SCH ×2 (05:09→09:09)
[2019-04-21] MEDS ORDERED: PANTOPRAZOLE 40 MG/10 ML VIAL IV SCH (09:00)
[2019-04-21] MEDS: CITALOPRAM HYDROBROMIDE 20 MG TAB PO SCH (09:09)
[2019-04-21] MEDS: METOPROLOL TARTRATE 12.5 MG TAB PO SCH ×2 (09:09→20:13)
[2019-04-21] MEDS: SUCRALFATE 1 GM TAB PO SCH ×4 (09:09→20:13)
[2019-04-21] MEDS: HEPARIN SODIUM,PORCINE 5,000 UNIT/ML 1 ML VIAL SQ SCH ×2 (09:10→20:12)
[2019-04-21 11:29] LABS: Basophils % (A) 0 %; Eosinophils # (A) 0.1 k/uL (0-0.7); Eosinophils % (A) 2 %; HCT 36.1 % (34.0-46.0); HGB 11.6 gm/dL (11.4-16.0); Lymphocytes # (A) 2.2 k/uL (1.0-4.8); Lymphocytes % (A) 27 %; MCH 28.4 pg (25.0-35.0); MCHC 32.1 g/dL (31.0-37.0); MCV 88.5 fL (80.0-100.0); Mean Platelet Volume 6.4; Monocytes # (A) 0.3 k/uL (0-1.0); Monocytes % (A) 4 %; Neutrophils # (A) 5.3 k/uL (1.3-7.7); Neutrophils % (A) 66 %; Platelet Count 321 k/uL (150-450); RBC 4.08 m/uL (3.80-5.40); RDW 12.8 % (11.5-15.5); WBC 8.1 k/uL (3.8-10.6)
[2019-04-21 11:45] LABS: ALT 16 U/L (9-52); AST 18 U/L (14-36); African American GFR (CKD) >90 (>60 ml/min/1.73 sqM); Albumin 2.9 g/dL (3.5-5.0); Alkaline Phosphatase 57 U/L (38-126); Anion Gap 6 mmol/L; Blood Urea Nitrogen 4 mg/dL (7-17); Calcium 8.1 mg/dL (8.4-10.2); Carbon Dioxide 24 mmol/L (22-30); Chloride 108 mmol/L (98-107); Glucose 96 mg/dL (74-99); Sodium 138 mmol/L (137-145); Total Bilirubin 0.2 mg/dL (0.2-1.3); Total Protein 5.2 g/dL (6.3-8.2)
--- NOTE | 2019-04-21 15:22 | P.PN ---
Subjective Progress Note Date: 04/21/19 This is a 39-year-old female patient of Dr. Dover with past medical history significant for gastroesophageal reflux disease, Lagunas's esophagus and chronic pancreatitis, pancreatic divisum. She has seen Dr. Sandra in the past as well as [facility]. Since her last admission in January for pancreatitis, patient states that she underwent ERCP stent placement January 24 and in February had this removed. Surgeon was expecting this to give some relief but if not then surgery will be likely. She complains of abdominal pain that started 1 AM this morning epigastric and right upper quadrant. She complains of nausea without vomiting. Patient came into [facility] emergenc y center for evaluation, she was afebrile, heart rate 99, blood pressure 116/75, pulse ox 96% on room air. WBC 11.3. Creatinine 0.68. Amylase 317, lipase 1865. Liver function tests within normal limits. Urinalysis negative for UTI. She was started on Dilaudid, Toradol, Protonix and IV fluids and admitted to the MedSur floor. Consult in place with GI. 04/21: Patient has been seen by Dr. Giancarlo Pizarro. Patient has been afebrile, heart rate 99, blood pressure 111/72, pulse ox 91% on room air. Repeat lab work reveals normal white count of 8.1, hemoglobin 11.6, BUN 4 and creatinine 0.68. Lipase 176. Abdominal pain has improved. Patient a 50% of her breakfast which is currently clear liquids. Diet will be advanced to full liquids for dinner and low-fat in the morning. Anticipate discharge home tomorrow. Objective - Vital Signs Vital signs: Vital Signs Temp 98.3 F 04/21/19 05:26 Pulse 99 04/21/19 05:26 Resp 16 04/21/19 05:26 BP 111/72 04/21/19 05:26 Pulse Ox 91 L 04/21/19 05:26 Intake & Output 04/20/19 04/21/19 04/21/19 18:59 06:59 18:59 Weight 118.932 kg Other: # Voids 1 - Exam Review of Systems Constitutional: Denies poor appetite, Denies anorexia, Denies chills, Denies lethargy, Denies weakness Eyes: denies blurred vision, denies pain Ears, nose, mouth and throat: Denies headache, Denies nasal congestion, Denies nasal discharge, Denies sore throat, Denies vertigo Cardiovascular: Denies chest pain, Denies dyspnea on exertion, Denies edema, Denies leg edema, Denies lightheadedness, Denies shortness of breath, Denies syncope Respiratory: Denies cough, Denies cough with sputum, Denies dyspnea, Denies excessive sputum, Denies hemoptysis, Denies home oxygen, Denies respiratory infections, Denies wheezing Gastrointestinal: Denies abdominal pain, denies loss of appetite, denies nausea, Denies constipation, Denies diarrhea, Denies vomiting Genitourinary: Denies dysuria, Denies hematuria, Denies urgency, Denies urinary frequency Musculoskeletal: Denies frequent falls, Denies gait dysfunction, Denies myalgias Integumentary: Denies pruritus, Denies rash, Denies wounds Neurological: Denies change in mentation, Denies change in speech, Denies numbness, Denies seizures, Denies weakness Psychiatric: Denies anxiety, Denies depression Endocrine: Denies fatigue, Denies weight change Gen: This is a morbidly obese 39-year-old female found resting in bed and in no acute distress. HEENT: Head is atraumatic, normocephalic. Pupils equal, round. Sclerae is anicteric. NECK: Supple. No JVD. No lymphadenopathy. No thyromegaly. LUNGS: Clear to auscultation. No wheezes or rhonchi. No intercostal ret ractions. HEART: Regular rate and rhythm. No murmur. ABDOMEN: Soft. Bowel sounds are present. No masses. No tenderness. EXTREMITIES: No pedal edema. No calf tenderness. NEUROLOGICAL: Patient is awake, alert and oriented x3. Cranial nerves 2 through 12 are grossly intact. - Labs CBC & Chem 7: 04/21/19 10:34 04/21/19 10:34 Assessment and Plan Plan: 1. Acute pancreatitis with pancreatic divisum. Consult with GI appreciated. Continue clear liquids diet to be advanced at dinner to full liquids and low fat in the morning. Continue Dilaudid and Toradol for pain control. 2. Chronic pancreatitis status post stent placement this past summer. 3. Hiatal hernia, gastroesophageal reflux disease, Lagunas's esophagus. Protonix, Carafate 4. Recurrent depression and generalized anxiety disorder. Continue citalopram 20 mg daily and lorazepam 0.5 mg twice daily as needed. 5. Hypertension. Continue Lopressor 12.5 mg twice daily. 6. DVT prophylaxis. Heparin subcu. 7. Vitamin B-12 and vitamin D deficiencies. Supplements. Discharge plan: Return home on Wednesday Impression and plan of care have been directed as dictated by the signing physician. Nallely Peterson nurse practitioner acting as scribe for signing physician.
[2019-04-21 20:13] VITALS: TEMP 98.4
[2019-04-22] MEDS: HYDROmorphone 1 MG/ML 1 ML SYRINGE IVP PRN (04:53)
[2019-04-22 04:56] VITALS: BP 126/78; PULSE 86; RESP 20
[2019-04-22] MEDS: METOPROLOL TARTRATE 12.5 MG TAB PO SCH (08:34)
[2019-04-22] MEDS: HEPARIN SODIUM,PORCINE 5,000 UNIT/ML 1 ML VIAL SQ SCH (08:35)
[2019-04-22] MEDS: CITALOPRAM HYDROBROMIDE 20 MG TAB PO SCH (08:35)
[2019-04-22] MEDS: SUCRALFATE 1 GM TAB PO SCH (08:35)
[2019-04-22] MEDS ORDERED: PANTOPRAZOLE 40 MG TABLET PO SCH (09:00)
--- NOTE | 2019-04-22 10:22 | P.DS ---
Providers Date of admission: 04/20/19 09:04 Expected date of discharge: 04/22/19 Attending physician: Tania Wilcox Consults: 04/20/19 09:16 Consult Physician Stat Consulting Provider: Marybeth Pizarro Consult Reason/Comments: Pancreatitis Do you want consulting provider notified?: Yes Primary care physician: Carter Dover MD Hospital Course: This is a 39-year-old female patient of Dr. Dover with past medical history significant for gastroesophageal reflux disease, Lagunas's esophagus and chronic pancreatitis, pancreatic divisum. She has seen Dr. Sandra in the past as well as [facility]. Since her last admission in January for pancreatitis, patient states that she underwent ERCP stent placement January 24 and in February had this removed. Surgeon was expecting this to give some relief but if not then surgery will be likely. She complains of abdominal pain that started 1 AM this morning epigastric and right upper quadrant. She complains of nausea without vomiting. Patient came into [facility] emergency center for evaluation, she was afebrile, heart rate 99, blood pressure 116/75, pulse ox 96% on room air. WBC 11.3. Creatinine 0.68. Amylase 317, lipase 1865. Liver function tests within normal limits. Urinalysis negative for UTI. She was started on Dilaudid, Toradol, Protonix and IV fluids and admitted to the MedSurg floor. Consult in place with GI. 04/21: Patient has been seen by Dr. Giancarlo Pizarro. Patient has been afebrile, heart rate 99, blood pressure 111/72, pulse ox 91% on room air. Repeat lab work reveals normal white count of 8.1, hemoglobin 11.6, BUN 4 and creatinine 0.68. Lipase 176. Abdominal pain has improved. Patient a 50% of her breakfast which is currently clear liquids. Diet will be advanced to full liquids for dinner and low-fat in the morning. Anticipate discharge home tomorrow. Discharge diagnoses: 1. Acute pancreatitis with pancreatic divisum. 2. Chronic pancreatitis status post stent placement this summer by at [facility]. 3. Hiatal hernia, gastroesophageal reflux disease. 4. Recurrent depression and generalized anxiety disorder. 5. Hypertension. Patient Condition at Discharge: Stable Plan - Discharge Summary Discharge Rx Participant: No New Discharge Prescriptions: Continue Citalopram Hydrobromide [Citalopram HBr] 20 mg PO DAILY Omeprazole 20 mg PO DAILY Metoprolol Tartrate [Lopressor] 12.5 mg PO BID LORazepam [Ativan] 0.5 mg PO BID PRN PRN Reason: Anxiety traMADol HCL 50 mg PO TID PRN PRN Reason: Pain Discharge Medication List Citalopram Hydrobromide [Citalopram HBr] 20 mg PO DAILY 11/08/17 [History] Omeprazole 20 mg PO DAILY 09/30/18 [History] LORazepam [Ativan] 0.5 mg PO BID PRN 04/20/19 [History] Metoprolol Tartrate [Lopressor] 12.5 mg PO BID 04/20/19 [History] traMADol HCL 50 mg PO TID PRN 04/20/19 [History] Follow up Appointment(s)/Referral(s): Carter Dover MD [Primary Care Provider] - 1-2 days Activity/Diet/Wound Care/Special Instructions: Please use medication as discussed. Please follow up with family doctor if symptoms have not improved over the next two days. Please return to the emergency room if your symptoms increase or worsen or for any other concerns.
--- NOTE | 2019-04-22 10:23 | P.PN ---
Subjective Progress Note Date: 04/22/19 This is a 39-year-old female patient of Dr. Dover with past medical history significant for gastroesophageal reflux disease, Lagunas's esophagus and chronic pancreatitis, pancreatic divisum. She has seen Dr. Sandra in the past as well as [facility]. Since her last admission in January for pancreatitis, patient states that she underwent ERCP stent placement January 24 and in February had this removed. Surgeon was expecting this to give some relief but if not then surgery will be likely. She complains of abdominal pain that started 1 AM this morning epigastric and right upper quadrant. She complains of nausea without vomiting. Patient came into [facility] emergenc y center for evaluation, she was afebrile, heart rate 99, blood pressure 116/75, pulse ox 96% on room air. WBC 11.3. Creatinine 0.68. Amylase 317, lipase 1865. Liver function tests within normal limits. Urinalysis negative for UTI. She was started on Dilaudid, Toradol, Protonix and IV fluids and admitted to the Medr floor. Consult in place with GI. 04/21: Patient has been seen by Dr. Giancarlo Pizarro. Patient has been afebrile, heart rate 99, blood pressure 111/72, pulse ox 91% on room air. Repeat lab work reveals normal white count of 8.1, hemoglobin 11.6, BUN 4 and creatinine 0.68. Lipase 176. Abdominal pain has improved. Patient a 50% of her breakfast which is currently clear liquids. Diet will be advanced to full liquids for dinner and low-fat in the morning. Anticipate discharge home tomorrow. 04/22: feels better and tolerate diet well, she wanted to go home. Review of Systems Constitutional: Denies poor appetite, Denies anorexia, Denies chills, Denies lethargy, Denies weakness Eyes: denies blurred vision, denies pain Ears, nose, mouth and throat: Denies headache, Denies nasal congestion, Denies nasal discharge, Denies sore throat, Denies vertigo Cardiovascular: Denies chest pain, Denies dyspnea on exertion, Denies edema, Denies leg edema, Denies lightheadedness, Denies shortness of breath, Denies syncope Respiratory: Denies cough, Denies cough with sputum, Denies dyspnea, Denies excessive sputum, Denies hemoptysis, Denies home oxygen, Denies respiratory infections, Denies wheezing Gastrointestinal: Denies abdominal pain, denies loss of appetite, denies nausea, Denies constipation, Denies diarrhea, Denies vomiting Genitourinary: Denies dysuria, Denies hematuria, Denies urgency, Denies urinary frequency Musculoskeletal: Denies frequent falls, Denies gait dysfunction, Denies myalgias Integumentary: Denies pruritus, Denies rash, Denies wounds Neurological: Denies change in mentation, Denies change in speech, Denies numbness, Denies seizures, Denies weakness Psychiatric: Denies anxiety, Denies depression Endocrine: Denies fatigue, Denies weight change Objective - Vital Signs Vital signs: Vital Signs Temp 98.4 F 04/22/19 04:56 Pulse 86 04/22/19 04:56 Resp 20 04/22/19 04:56 BP 126/78 04/22/19 04:56 Pulse Ox 93 L 04/22/19 04:56 Intake & Output 04/21/19 04/22/19 04/22/19 18:59 06:59 18:59 Intake Total 540 300 Balance 540 300 Intake: Oral 540 300 Other: # Voids 4 1 - Exam Gen: This is a morbidly obese 39-year-old female found resting in bed and in no acute distress. HEENT: Head is atraumatic, normocephalic. Pupils equal, round. Sclerae is anicteric. NECK: Supple. No JVD. No lymphadenopathy. No thyromegaly. LUNGS: Clear to auscultation. No wheezes or rhonchi. No intercostal retractions. HEART: Regular rate and rhythm. No murmur. ABDOMEN: Soft. Bowel sounds are present. No masses. No tenderness. EXTREMITIES: No pedal edema. No calf tenderness. NEUROLOGICAL: Patient is awake, alert and oriented x3. Cranial nerves 2 through 12 are grossly intact. - Labs CBC & Chem 7: 04/21/19 10:34 04/21/19 10:34 Labs: Abnormal Lab Results - Last 24 Hours (Table) 04/21/19 Range/Units 10:34 Chloride 108 H (98-107) mmol/L BUN 4 L (7-17) mg/dL Calcium 8.1 L (8.4-10.2) mg/dL Total Protein 5.2 L (6.3-8.2) g/dL Albumin 2.9 L (3.5-5.0) g/dL Assessment and Plan Assessment: Assessment and Plan Plan: 1. Acute pancreatitis with pancreatic divisum. Consult with GI appreciated. Continue clear liquids diet to be advanced at dinner to full liquids and low fat in the morning. Continue Dilaudid and Toradol for pain control. 2. Chronic pancreatitis status post stent placement this past summer. 3. Hiatal hernia, gastroesophageal reflux disease, Lagunas's esophagus. Proton ix, Carafate 4. Recurrent depression and generalized anxiety disorder. Continue citalopram 20 mg daily and lorazepam 0.5 mg twice daily as needed. 5. Hypertension. Continue Lopressor 12.5 mg twice daily. 6. DVT prophylaxis. Heparin subcu. 7. Vitamin B-12 and vitamin D deficiencies. Supplements.
== END 2019-04-22 10:52 | disposition home or self-care (01) | DRG 439 ==
LOC: EC 07:16 → 4MS4W 09:04
PROVIDERS: ADMIT Family Medicine; ATTEND Family Medicine
DX: K85.90 Acute pancreatitis without necrosis or infection, unspecified (principal); Q45.3 Other congenital malformations of pancreas and pancreatic duct; F33.9 Major depressive disorder, recurrent, unspecified; E55.9 Vitamin D deficiency, unspecified; F41.1 Generalized anxiety disorder; I10 Essential (primary) hypertension; K21.9 Gastro-esophageal reflux disease without esophagitis; K22.70 Barrett's esophagus without dysplasia; K44.9 Diaphragmatic hernia without obstruction or gangrene; Z79.899 Other long term (current) drug therapy; Z82.49 Family history of ischemic heart disease and other diseases of the circulatory system; Z87.891 Personal history of nicotine dependence; Z88.8 Allergy status to other drugs, medicaments and biological substances; Z91.041 Radiographic dye allergy status; Z91.040 Latex allergy status; Z91.013 Allergy to seafood
CPT/HCPCS: 36415; 80053; 80320; 81003; 82150; 83690; 85025; 85610; 85730; 96361; 96374; 96375; 96376; 99285

== ENCOUNTER 2020-02-13 07:12 | Inpatient (IN) | payer MEDICAID, OTHER ==
[2020-02-13] MEDS ORDERED: ONDANSETRON 4 MG/2 ML VIAL IVP STA (07:48)
[2020-02-13] MEDS ORDERED: PANTOPRAZOLE 40 MG/10 ML VIAL IVP STA (07:48)
[2020-02-13] MEDS ORDERED: HYDROmorphone 1 MG/ML 1 ML SYRINGE IVP STA ×2 (07:48→09:26)
[2020-02-13] MEDS ORDERED: SODIUM CHLORIDE 0.9% 1,000 ML IV STA (07:48)
--- NOTE | 2020-02-13 08:16 | ED ---
Abdominal Pain HPI - General Chief Complaint: Abdominal Pain Stated Complaint: Pancreatitis Time Seen by Provider: 02/13/20 07:40 Source: patient Mode of arrival: ambulatory Limitations: no limitations - History of Present Illness Initial Comments: 39-year-old female past medical history of pancreatic divisum, Lagunas's esophagitis who presents emergency department with reported epigastric abdominal pain. Patient reports that her pain feels similar to her previous episodes of pancreatitis. Patient reports her last hospital admission was in April of last year. She states she has been doing well since this episode. Went to bed feeling well last night and woke up this morning from sleep with pain and nausea. Denies any vomiting. No hematemesis. She did take some Zofran without improvement in her symptoms. Patient does not have pain medications available to her. Normally follows with Dr. Pizarro. Last year at the [facility] she had a bilateral stent placed however it was removed she had no relief in her pain. No surgeries or hospital visits since last April. Patient denies fevers or chills. No chest pain or shortness of breath. No sick contacts with similar symptoms. Denies eating any tainted foods. No dysuria, hematuria or difficulty voiding. Denies constipation, diarrhea, melenic stools or hematochezia. No concern for . No other abdominal surgery. No other alleviating, precipitating or modifying factors - Related Data Home Medications Medication Instructions Recorded Confirmed Citalopram Hydrobromide 10 mg PO DAILY 11/08/17 02/13/20 [Citalopram HBr] Omeprazole 20 mg PO DAILY 09/30/18 02/13/20 Metoprolol Tartrate [Lopressor] 12.5 mg PO BID 04/20/19 02/13/20 Loratadine [Claritin] 10 mg PO DAILY 02/13/20 02/13/20 Montelukast [Singulair] 10 mg PO DAILY PRN 02/13/20 02/13/20 Phentermine HCl [Adipex-P] 18.75 mg PO DAILY 02/13/20 02/13/20 Allergies Allergy/AdvReac Type Severity Reaction Status Date / Time Iodinated Contrast Media Allergy Severe Anaphylaxis Verified 02/13/20 12:37 [Iodinated Contrast Media - IV Dye] latex Allergy Rash/Hives Verified 02/13/20 12:37 shellfish derived Allergy Anaphylaxis Verified 02/13/20 12:37 metoclopramide HCl AdvReac Intermediate Facial Verified 02/13/20 12:37 [From Reglan] Twitching prochlorperazine edisylate AdvReac Intermediate Facial Verified 02/13/20 12:37 [From Compazine] Twitching prochlorperazine maleate AdvReac Intermediate Facial Verified 02/13/20 12:37 [From Compazine] Twitching promethazine HCl AdvReac Intermediate Facial Verified 02/13/20 12:37 [From Phenergan] Twitching Review of Systems ROS Statement: Those systems with pertinent positive or pertinent negative responses have been documented in the HPI. ROS Other: All systems not noted in ROS Statement are negative. Past Medical History Past Medical History: GERD/Reflux Additional Past Medical History / Comment(s): Chronic pancreatitis, hiatal hernia, Lagunas's esophagus, migraines. History of Any Multi-Drug Resistant Organisms: None Reported Past Surgical History: Uterine Ablation Additional Past Surgical History / Comment(s): Laparoscopy x 2 d/t endometriosis, uterine ablation, multiple egd's and ercp's, pancreatic stents-none in now Past Anesthesia/Blood Transfusion Reactions: Postoperative Nausea & Vomiting (PONV) Additional Past Anesthesia/Blood Transfusion Reaction / Comment(s): never had blood transfusion Past Psychological History: Anxiety, Depression Smoking Status: Never smoker Past Alcohol Use History: None Reported Past Drug Use History: None Reported - Past Family History Mother Family Medical History: No Reported History Additional Family Medical History / Comment(s): Mother is healthy. Father Family Medical History: Hypertension General Exam Limitations: no limitations General appearance: alert, in no apparent distress Head exam: Present: atraumatic, normocephalic, normal inspection Eye exam: Present: normal appearance, PERRL, EOMI. Absent: scleral icterus, conjunctival injection, periorbital swelling ENT exam: Present: normal exam, mucous membranes moist Neck exam: Present: normal inspection. Absent: tenderness, meningismus, lymphadenopathy Respiratory exam: Present: normal lung sounds bilaterally. Absent: respiratory distress, wheezes, rales, rhonchi, stridor Cardiovascular Exam: Present: normal rhythm, tachycardia, normal heart sounds. Absent: systolic murmur, diastolic murmur, rubs, gallop, clicks GI/Abdominal exam: Present: soft, tenderness (epigastric), normal bowel sounds. Absent: distended, guarding, rebound, rigid Extremities exam: Present: normal inspection, full ROM, normal capillary refill. Absent: tenderness, pedal edema, joint swelling, calf tenderness Back exam: Present: normal inspection Neurological exam: Present: alert, oriented X3, CN II-XII intact Psychiatric exam: Present: normal affect, normal mood Skin exam: Present: warm, dry, intact, normal color. Absent: rash Course Vital Signs 02/13/20 02/13/20 02/13/20 07:38 07:40 08:40 Temperature 99.1 F Pulse Rate 106 H Respiratory 18 18 18 Rate Blood Pressure 114/68 O2 Sat by Pulse 98 Oximetry 02/13/20 02/13/20 09:00 10:12 Temperature Pulse Rate 102 H Respiratory 18 18 Rate Blood Pressure 114/65 O2 Sat by Pulse 95 Oximetry Medical Decision Making - Medical Decision Making Upon arrival patient was placed into room 9. A thorough history and physical exam is performed. Per 5 is established. Laboratory studies were conducted. Ultrasound was performed as the patient reports that this is consistent with her previous he pancreatitis pain. Laboratory studies reveal that the lipase is 14,340. Amylase is 1853. Ultrasound does not demonstrate any acute signs. Pancreas is shadowed by bowel gas. Patient was given 4 mg of Zofran for nausea and 1 g of Dilaudid for pain control. She is reevaluated. Laboratory studies were discussed. Recommend hospital admission for which the patient did agree to. I discussed case with Dr. Gupta who agreed to hospital admission. He'll consult GI. Patient was transferred to the floor in stable condition - Lab Data Result diagrams: 02/14/20 05:49 02/14/20 05:49 Lab Results 02/13/20 02/13/20 02/13/20 Range/Units 08:23 08:23 08:23 WBC 12.1 H (3.8-10.6) k/uL RBC 4.92 (3.80-5.40) m/uL Hgb 13.7 (11.4-16.0) gm/dL Hct 41.1 (34.0-46.0) % MCV 83.5 (80.0-100.0) fL MCH 27.9 (25.0-35.0) pg MCHC 33.4 (31.0-37.0) g/dL RDW 13.3 (11.5-15.5) % Plt Count 393 (150-450) k/uL Neutrophils % 75 % Lymphocytes % 18 % Monocytes % 5 % Eosinophils % 1 % Basophils % 0 % Neutrophils # 9.0 H (1.3-7.7) k/uL Lymphocytes # 2.2 (1.0-4.8) k/uL Monocytes # 0.6 (0-1.0) k/uL Eosinophils # 0.2 (0-0.7) k/uL Basophils # 0.1 (0-0.2) k/uL Sodium (137-145) mmol/L Potassium (3.5-5.1) mmol/L Chloride (98-107) mmol/L Carbon Dioxide (22-30) mmol/L Anion Gap mmol/L BUN (7-17) mg/dL Creatinine (0.52-1.04) mg/dL Est GFR (CKD-EPI)AfAm (>60 ml/min/1.73 sqM) Est GFR (CKD-EPI)NonAf (>60 ml/min/1.73 sqM) Glucose (74-99) mg/dL Plasma Lactic Acid [place] (0.7-2.0) mmol/L Calcium (8.4-10.2) mg/dL Total Bilirubin (0.2-1.3) mg/dL AST (14-36) U/L ALT (4-34) U/L Alkaline Phosphatase (38-126) U/L Lactate Dehydrogenase (313-618) U/L Total Protein (6.3-8.2) g/dL Albumin (3.5-5.0) g/dL Amylase (30-110) U/L Lipase (23-300) U/L Urine Color Yellow Urine Appearance Cloudy H (Clear) Urine pH 6.0 (5.0-8.0) Ur Specific [place] 1.031 (1.001-1.035) Urine Protein Trace H (Negative) Urine Glucose (UA) Negative (Negative) Urine Ketones Negative (Negative) Urine Blood Negative (Negative) Urine Nitrite Negative (Negative) Urine Bilirubin Negative (Negative) Urine Urobilinogen 3.0 (<2.0) mg/dL Ur Leukocyte Esterase Trace H (Negative) Urine RBC 3 (0-5) /hpf Urine WBC 3 (0-5) /hpf Ur Squamous Epith Cells 6 H (0-4) /hpf Urine Bacteria Moderate H (None) /hpf Urine Mucus Rare H (None) /hpf Urine HCG, Qual Not Detected (Not Detectd) 02/13/20 02/13/20 02/13/20 Range/Units 08:23 08:23 08:23 WBC (3.8-10.6) k/uL RBC (3.80-5.40) m/uL Hgb (11.4-16.0) gm/dL Hct (34.0-46.0) % MCV (80.0-100.0) fL MCH (25.0-35.0) pg MCHC (31.0-37.0) g/dL RDW (11.5-15.5) % Plt Count (150-450) k/uL Neutrophils % % Lymphocytes % % Monocytes % % Eosinophils % % Basophils % % Neutrophils # (1.3-7.7) k/uL Lymphocytes # (1.0-4.8) k/uL Monocytes # (0-1.0) k/uL Eosinophils # (0-0.7) k/uL Basophils # (0-0.2) k/uL Sodium 140 (137-145) mmol/L Potassium 4.5 (3.5-5.1) mmol/L Chloride 112 H (98-107) mmol/L Carbon Dioxide 20 L (22-30) mmol/L Anion Gap 8 mmol/L BUN 18 H (7-17) mg/dL Creatinine 0.66 (0.52-1.04) mg/dL Est GFR (CKD-EPI)AfAm >90 (>60 ml/min/1.73 sqM) Est GFR (CKD-EPI)NonAf >90 (>60 ml/min/1.73 sqM) Glucose 110 H (74-99) mg/dL Plasma Lactic Acid [place] 0.9 (0.7-2.0) mmol/L Calcium 9.2 (8.4-10.2) mg/dL Total Bilirubin 0.3 (0.2-1.3) mg/dL AST 20 (14-36) U/L ALT 15 (4-34) U/L Alkaline Phosphatase 134 H (38-126) U/L Lactate Dehydrogenase 513 (313-618) U/L Total Protein 7.3 (6.3-8.2) g/dL Albumin 4.3 (3.5-5.0) g/dL Amylase 1853 H* (30-110) U/L Lipase 89863 H (23-300) U/L Urine Color Urine Appearance (Clear) Urine pH (5.0-8.0) Ur Specific [place] (1.001-1.035) Urine Protein (Negative) Urine Glucose (UA) (Negative) Urine Ketones (Negative) Urine Blood (Negative) Urine Nitrite (Negative) Urine Bilirubin (Negative) Urine Urobilinogen (<2.0) mg/dL Ur Leukocyte Esterase (Negative) Urine RBC (0-5) /hpf Urine WBC (0-5) /hpf Ur Squamous Epith Cells (0-4) /hpf Urine Bacteria (None) /hpf Urine Mucus (None) /hpf Urine HCG, Qual (Not Detectd) - EKG Data EKG Comments: EKG demonstrates normal sinus rhythm with a ventricular rate of 95. ID of 160. QRS any 6. QTC of 462. No acute ST segment elevations or depressions concerning for ischemic changes Disposition Clinical Impression: Acute pancreatitis, Pancreatic divisum, Abdominal pain Disposition: ADMITTED IP TO THIS HOSP Condition: Good Is patient prescribed a controlled substance at d/c from ED?: No Decision to Admit Reason: Admit from EC Decision Date: 02/13/20 Decision Time: 09:27
[2020-02-13 08:41] LABS: Basophils # (A) 0.1 k/uL (0-0.2); Basophils % (A) 0 %; Eosinophils # (A) 0.2 k/uL (0-0.7); Eosinophils % (A) 1 %; HCT 41.1 % (34.0-46.0); HGB 13.7 gm/dL (11.4-16.0); Lymphocytes # (A) 2.2 k/uL (1.0-4.8); Lymphocytes % (A) 18 %; MCH 27.9 pg (25.0-35.0); MCHC 33.4 g/dL (31.0-37.0); MCV 83.5 fL (80.0-100.0); Mean Platelet Volume 6.9; Monocytes # (A) 0.6 k/uL (0-1.0); Monocytes % (A) 5 %; Neutrophils % (A) 75 %; Platelet Count 393 k/uL (150-450); RBC 4.92 m/uL (3.80-5.40); RDW 13.3 % (11.5-15.5); WBC 12.1 k/uL (3.8-10.6)
[2020-02-13 09:00] LABS: ALT 15 U/L (4-34); AST 20 U/L (14-36); African American GFR (CKD) >90 (>60 ml/min/1.73 sqM); Albumin 4.3 g/dL (3.5-5.0); Alkaline Phosphatase 134 U/L (38-126); Anion Gap 8 mmol/L; Blood Urea Nitrogen 18 mg/dL (7-17); Calcium 9.2 mg/dL (8.4-10.2); Carbon Dioxide 20 mmol/L (22-30); Chloride 112 mmol/L (98-107); Glucose 110 mg/dL (74-99); Non-African American GFR(CKD) >90 (>60 ml/min/1.73 sqM); Potassium 4.5 mmol/L (3.5-5.1); Sodium 140 mmol/L (137-145); Total Bilirubin 0.3 mg/dL (0.2-1.3); Total Protein 7.3 g/dL (6.3-8.2)
--- NOTE | 2020-02-13 09:11 | US ---
EXAMINATION TYPE: US abdomen limited DATE OF EXAM: 02/13/2020 COMPARISON: CT 12/29/2018 CLINICAL HISTORY: right upper quadrant pain, hx pancreatitis. Difficult exam due to patient body habi tus and overlying bowel gas EXAM MEASUREMENTS: Liver Length: 17.3 cm Gallbladder Wall: 0.2 cm CBD: 0.6 cm Right Kidney: 11.5 x 4.8 x 5.5 cm Pancreas: Obscured by bowel gas Liver: Measuring upper limits of normal, heterogeneous Gallbladder: No stones visualized Evidence for sonographic Castle's sign: No CBD: Measuring upper limits Right Kidney: No hydronephrosis or masses seen Suboptimal evaluation of pancreas on images saved secondary to body habitus and overlying bowel gas. IVC is seen in the hepatic dome. Visualized liver is slightly heterogeneous without worrisome focal i ntrahepatic mass or intrahepatic ductal dilatation. Gallbladder seen without shadowing gallstones. Li mited images of right kidney show no gross hydronephrosis. IMPRESSION: No shadowing mobile gallstones or ultrasound evidence for acute cholecystitis.
[2020-02-13 09:12] LABS: Amylase 1853 U/L (30-110)
[2020-02-13 09:31] LABS: Appearance,Urine Cloudy (Clear); Bacteria,Urine Moderate /hpf; Bilirubin,Urine Negative (Negative); Blood,Urine Negative (Negative); Color,Urine Yellow; Glucose,Urine (UA) Negative (Negative); Ketones,Urine Negative (Negative); Leukocyte Esterase,Urine Trace (Negative); Mucus,Urine Rare /hpf; Nitrite,Urine Negative (Negative); Protein,Urine Trace (Negative); RBC,Urine 3 /hpf (0-5); Specific Gravity,Urine 1.031 (1.001-1.035); Squamous Epithelial Cell,Urine 6 /hpf (0-4); WBC,Urine 3 /hpf (0-5)
[2020-02-13] MEDS ORDERED: ONDANSETRON 4 MG/2 ML VIAL IVP PRN (09:32)
[2020-02-13] MEDS ORDERED: NALOXONE 0.4 MG/ML 1 ML VIAL IV PRN (09:32)
[2020-02-13] MEDS: HYDROmorphone 1 MG/ML 1 ML SYRINGE IVP PRN ×5 (10:03→23:00)
[2020-02-13] MEDS: SODIUM CHLORIDE 0.9% 1,000 ML IV SCH ×2 (10:05→17:43)
[2020-02-13] MEDS ORDERED: MONTELUKAST 10 MG TAB PO PRN (11:26)
--- NOTE | 2020-02-13 11:38 | P.HPIM ---
History of Present Illness H&P Date: 02/13/20 Chief Complaint: Abdominal pain History of Present Illness This is a 39-year-old female patient of Dr. Dover with past medical history significant for gastroesophageal reflux disease, Lagunas's esophagus and chronic pancreatitis, pancreatic divisum. She has seen Dr. Pizarro in the past as well as [facility]. Since her last admission in April 2019 for pancreatitis. Previous to that, she underwent ERCP stent placement January 24 and in February had this removed. Patient states that she woke up in the middle of the night with severe abdominal pain. She denies any recent change in her diet, no alcohol use. She complains of nausea without vomiting. Pain is currently an 8 out of 10 to the epigastric and right upper quadrant. She also complains of post to her back. Patient is no longer a smoker. Patient came into [facility] emergency center for evaluation. She was afebrile, heart rate 106, blood pressure 114/68, pulse ox 90% on room air. WBC 12.1, hemoglobin 13.7. Chloride 112, CO2 20, BUN 18 and creatinine 0.66. Blood sugar 110. Initial lipase 14,340 and amylase 1853. Urinalysis cloudy with nitrate negative and leukoesterase trace. HCG not detected. Abdominal ultrasound revealed no shadowing mobile gallstones or ultrasound evidence of acute cholecystitis. Patient started on Dilaudid for pain and Zofran for nausea, Protonix, IV fluids and [facility] Consult with Dr. Sandra. Patient is currently on a clear liquid diet. Review of Systems Constitutional: No fever, no chills, no night sweats. No weight change. No weakness, fatigue or lethargy. No daytime sleepiness. EENT: No headache. No blurred vision or double vision, no loss of vision. No loss of Hearing, no ringing in the ears, no dizziness. No nasal drainage or congestion. No epistaxis. No sore throat. Lungs: No shortness of breath, cough, no sputum production. No wheezing. Cardiovascular: No chest pain, no lower extremity edema. No palpitations. No paroxysmal nocturnal dyspnea. No orthopnea. No lightheadedness or dizziness. No syncopal episodes. Abdominal: No abdominal pain. No nausea, vomiting. No diarrhea. No constipation. No bloody or tarry stools.. No loss of appetite. Genitourinary: No dysuria, increased frequency, urgency. No urinary retention. Musculoskeletal: No myalgias. No muscle weakness, no gait dysfunction, no frequent falls. No back pain. No neck pain. Integumentary: No wounds, no lesions. No rash or pruritus. No unusual br uising. No change in hair or nails. Neurologic: No aphasia. No facial droop. No change in mentation. No head injury. No headache. No paralysis. No paresthesia. Psychiatric: No depression. No anxiety. No mood swings. Endocrine: No abnormal blood sugars. No weight change. No excessive sweating or thirst. No cold intolerance. Physical Examination Gen: This is a morbidly obese 39-year-old female found resting in bed and in no acute distress. HEENT: Head is atraumatic, normocephalic. Pupils equal, round. Sclerae is anicteric. NECK: Supple. No JVD. No lymphadenopathy. No thyromegaly. LUNGS: Clear to auscultation. No wheezes or rhonchi. No intercostal retractions. HEART: Regular rate and rhythm. No murmur. ABDOMEN: Soft. Bowel sounds are present. No masses. Right upper quadrant tenderness. EXTREMITIES: No pedal edema. No calf tenderness. NEUROLOGICAL: Patient is awake, alert and oriented x3. Cranial nerves 2 through 12 are grossly intact. Assessment and Plan 1. Acute pancreatitis with pancreatic divisum. Consult with GI. Diet is clear liquids. Continue Dilaudid for pain control and Zofran for nausea. 2. Chronic pancreatitis status post stent placement with removal last year. 3. Hiatal hernia, gastroesophageal reflux disease, Lagunas's esophagus. Protonix. 4. Recurrent depression and generalized anxiety disorder. Continue citalopram 20 mg daily. 5. Hypertension. Continue Lopressor 12.5 mg twice daily. 6. Morbid obesity. Hold Adipex. 7. DVT prophylaxis. Heparin subcu. 8. COVID-19 testing. Patient will be admitted to the hospital for a minimum of 2 night stay. Discharge plan: Impression and plan of care have been directed as dictated by the signing physician. Nallely Peterson nurse practitioner acting as scribe for signing physician. Review of Systems Constitutional: Reports poor appetite, Denies anorexia, Denies chills, Denies lethargy, Denies weakness Eyes: denies blurred vision, denies pain Ears, nose, mouth and throat: Denies headache, Denies nasal congestion, Denies nasal discharge, Denies sore throat, Denies vertigo Cardiovascular: Denies chest pain, Denies dyspnea on exertion, Denies edema, Denies leg edema, Denies lightheadedness, Denies shortness of breath, Denies syncope Respiratory: Denies cough, Denies cough with sputum, Denies dyspnea, Denies excessive sputum, Denies hemoptysis, Denies home oxygen, Denies respiratory infections, Denies wheezing Gastrointestinal: Reports abdominal pain, Reports loss of appetite, Reports nausea, Denies constipation, Denies diarrhea, Denies vomiting Genitourinary: Denies dysuria, Denies hematuria, Denies urgency, Denies urinary frequency Musculoskeletal: Denies frequent falls, Denies gait dysfunction, Denies myalgias Integumentary: Denies pruritus, Denies rash, Denies wounds Neurological: Denies change in mentation, Denies change in speech, Denies numbness, Denies seizures, Denies weakness Psychiatric: Denies anxiety, Denies depression Endocrine: Denies fatigue, Denies weight change Past Medical History Past Medical History: GERD/Reflux Additional Past Medical History / Comment(s): Chronic pancreatitis, hiatal hernia, Lagunas's esophagus, migraines. History of Any Multi-Drug Resistant Organisms: None Reported Past Surgical History: Uterine Ablation Additional Past Surgical History / Comment(s): Laparoscopy x 2 d/t endometriosis, uterine ablation, multiple egd's and ercp's, pancreatic stents- none in now Past Anesthesia/Blood Transfusion Reactions: Postoperative Nausea & Vomiting (PONV) Additional Past Anesthesia/Blood Transfusion Reaction / Comment(s): never had blood transfusion Past Psychological History: Anxiety, Depression Smoking Status: Never smoker Past Alcohol Use History: None Reported Past Drug Use History: None Reported - Past Family History Mother Family Medical History: No Reported History Additional Family Medical History / Comment(s): Mother is healthy. Father Family Medical History: Hypertension Medications and Allergies Home Medications Medication Instructions Recorded Confirmed Type Citalopram Hydrobromide 10 mg PO DAILY 11/08/17 02/13/20 History [Citalopram HBr] Omeprazole 20 mg PO DAILY 09/30/18 02/13/20 History Metoprolol Tartrate [Lopressor] 12.5 mg PO BID 04/20/19 02/13/20 History Loratadine [Claritin] 10 mg PO DAILY 02/13/20 02/13/20 History Montelukast [Singulair] 10 mg PO DAILY PRN 02/13/20 02/13/20 History Phentermine HCl [Adipex-P] 18.75 mg PO DAILY 02/13/20 02/13/20 History Allergies Allergy/AdvReac Type Severity Reaction Status Date / Time Iodinated Contrast Media Allergy Severe Anaphylaxis Verified 02/13/20 10:02 [Iodinated Contrast Media - IV Dye] latex Allergy Rash/Hives Verified 02/13/20 10:02 shellfish derived Allergy Anaphylaxis Verified 02/13/20 10:02 metoclopramide HCl AdvReac Facial Verified 02/13/20 10:02 [From Reglan] Twitching prochlorperazine edisylate AdvReac Facial Verified 02/13/20 10:02 [From Compazine] Twitching prochlorperazine maleate AdvReac Facial Verified 02/13/20 10:02 [From Compazine] Twitching promethazine HCl AdvReac Facial Verified 02/13/20 10:02 [From Phenergan] Twitching Physical Exam Vitals: Vital Signs Temp Pulse Resp BP Pulse Ox 02/13/20 09:00 18 02/13/20 08:40 18 02/13/20 07:40 18 02/13/20 07:38 99.1 F 106 H 18 114/68 98 Intake and Output 02/12/20 02/13/20 02/13/20 22:59 06:59 14:59 Other: Weight 112.627 kg Results CBC & Chem 7: 02/13/20 08:23 02/13/20 08:23 Labs: Abnormal Lab Results - Last 24 Hours (Table) 02/13/20 02/13/20 02/13/20 Range/Units 08:23 08:23 08:23 WBC 12.1 H (3.8-10.6) k/uL Neutrophils # 9.0 H (1.3-7.7) k/uL Chloride 112 H (98-107) mmol/L Carbon Dioxide 20 L (22-30) mmol/L BUN 18 H (7-17) mg/dL Glucose 110 H (74-99) mg/dL Alkaline Phosphatase 134 H (38-126) U/L Amylase 1853 H* (30-110) U/L Lipase 63552 H (23-300) U/L Urine Appearance Cloudy H (Clear) Urine Protein Trace H (Negative) Ur Leukocyte Esterase Trace H (Negative) Ur Squamous Epith Cells 6 H (0-4) /hpf Urine Bacteria Moderate H (None) /hpf Urine Mucus Rare H (None) /hpf
[2020-02-13] MEDS ORDERED: ONDANSETRON 4 MG TAB PO PRN (12:22)
[2020-02-13] MEDS ORDERED: ONDANSETRON 8 MG in SODIUM CHLORIDE 0.9% 50 ML IVPB ONE (12:45)
[2020-02-13] MEDS: HEPARIN SODIUM,PORCINE 5,000 UNIT/ML 1 ML VIAL SQ SCH (21:48)
[2020-02-13] MEDS: PANTOPRAZOLE 40 MG/10 ML VIAL IVP SCH (21:48)
[2020-02-13] MEDS: METOPROLOL TARTRATE 12.5 MG TAB PO SCH (21:49)
[2020-02-13] MEDS ORDERED: ONDANSETRON ODT 4 MG TAB PO PRN (22:02)
[2020-02-13] MEDS ORDERED: ACETAMINOPHEN TAB 500 MG TAB PO PRN (22:11)
[2020-02-14] MEDS: SODIUM CHLORIDE 0.9% 1,000 ML IV SCH ×4 (00:40→21:37)
--- NOTE | 2020-02-14 02:02 | P.CONS ---
History of Present Illness - Reason for Consult Consult date: 02/13/20 Pancreatitis Requesting physician: Christopher Love - Chief Complaint Abdominal pain - History of Present Illness 39-year-old female with a medical history significant for pancreatic divisum and recurrent episodes of acute pancreatitis who presented to the hospital with complaints of abdominal pain. The patient has had multiple hospitalizations for acute uncomplicated pancreatitis. Currently she follows up with [facility] and previously underwent ERCP with pancreatic stent placement in February 2019. EGD and 05/2018 locally was significant for short segment [place] tt's esophagus and a small hiatal hernia. Currently the patient reports that symptoms occurred all of a sudden waking her up from her sleep which she describes as severe abdominal pain. She was unable to identify any triggers. On presentation laboratory evaluation significant for WBC 12.1, hemoglobin 13.7, platelet count 393,000, amylase 1853, lipase working thousand 340, total bilirubin 0.3, alkaline phosphatase 134, AST 20 and ALT 50. No gallstones or cholecystitis noted on ultrasound. Review of Systems REVIEW OF SYSTEMS: CONSTITUTIONAL: Denies any fevers, chills, weight change or fatigue. CARDIOVASCULAR: Denies any chest pain, palpitations high or low blood pressures RESPIRATORY: Denies any shortness of breath, hemoptysis or cough. GENITOURINARY: No dysuria or hematuria. MUSCULOSKELETAL: No weakness reported. SKIN: Denies any new rashes or lesions, jaundice or pallor. PSYCHIATRIC: Denies any depression or anxiety. NEUROLOGY: Denies headache, denies any new focal deficits. EARS/NOSE/THROAT: No recent hearing change, congestion, nasal discharge or sore throat. EYES: No pain in eyes, discharge or change in vision. GASTROINTESTINAL: As per HPI. Past Medical History Past Medical History: GERD/Reflux Additional Past Medical History / Comment(s): Chronic pancreatitis, hiatal hernia, Bhagat's esophagus, migraines. History of Any Multi-Drug Resistant Organisms: None Reported Past Surgical History: Uterine Ablation Additional Past Surgical History / Comment(s): Laparoscopy x 2 d/t endometriosis, uterine ablation, multiple egd's and ercp's, pancreatic stents- none in now Past Anesthesia/Blood Transfusion Reactions: Postoperative Nausea & Vomiting (PONV) Additional Past Anesthesia/Blood Transfusion Reaction / Comm: never had blood transfusion Past Psychological History: Anxiety, Depression Smoking Status: Never smoker Past Alcohol Use History: None Reported Past Drug Use History: None Reported - Past Family History Mother Family Medical History: No Reported History Additional Family Medical History / Comment(s): Mother is healthy. Father Family Medical History: Hypertension Medications and Allergies Home Medications Medication Instructions Recorded Confirmed Type Citalopram Hydrobromide 10 mg PO DAILY 11/08/17 02/13/20 History [Citalopram HBr] Omeprazole 20 mg PO DAILY 09/30/18 02/13/20 History Metoprolol Tartrate [Lopressor] 12.5 mg PO BID 04/20/19 02/13/20 History Loratadine [Claritin] 10 mg PO DAILY 02/13/20 02/13/20 History Montelukast [Singulair] 10 mg PO DAILY PRN 02/13/20 02/13/20 History Phentermine HCl [Adipex-P] 18.75 mg PO DAILY 02/13/20 02/13/20 History Allergies Allergy/AdvReac Type Severity Reaction Status Date / Time Iodinated Contrast Media Allergy Severe Anaphylaxis Verified 02/13/20 12:37 [Iodinated Contrast Media - IV Dye] latex Allergy Rash/Hives Verified 02/13/20 12:37 shellfish derived Allergy Anaphylaxis Verified 02/13/20 12:37 metoclopramide HCl AdvReac Intermediate Facial Verified 02/13/20 12:37 [From Reglan] Twitching prochlorperazine edisylate AdvReac Intermediate Facial Verified 02/13/20 12:37 [From Compazine] Twitching prochlorperazine maleate AdvReac Intermediate Facial Verified 02/13/20 12:37 [From Compazine] Twitching promethazine HCl AdvReac Intermediate Facial Verified 02/13/20 12:37 [From Phenergan] Twitching Physical Exam Vitals: Vital Signs Temp Pulse Pulse Resp BP BP Pulse Ox 02/13/20 13:28 18 90 L 02/13/20 10:35 98.3 F 88 16 110/71 93 L 02/13/20 10:26 99.1 F 102 H 18 114/65 95 02/13/20 10:12 102 H 18 114/65 95 02/13/20 09:00 18 02/13/20 08:40 18 02/13/20 07:40 18 02/13/20 07:38 99.1 F 106 H 18 114/68 98 Intake and Output 02/12/20 02/13/20 02/13/20 22:59 06:59 14:59 Other: Weight 113.4 kg On physical examination, patient appears comfortable in no apparent distress. HEAD: Normocephalic, atraumatic. EYES: No scleral icterus. No conjunctival injection. MOUTH: No lesions, tongue midline. NECK: Trachea midline, no gross abnormalities. CHEST: Clear to auscultation with no wheezing or rhonchi appreciated. HEART: Regular rate and rhythm. ABDOMEN: Soft, moderately tender to palpation Bowel sounds are positive. No organomegaly. No guarding or rigidity. EXTREMITIES: No pedal edema. SKIN: No rashes, no jaundice. NEUROLOGIC: Alert and oriented x3. No focal deficits. Results CBC & Chem 7: 02/13/20 08:23 02/13/20 08:23 Labs: Abnormal Lab Results - Last 24 Hours (Table) 02/13/20 02/13/20 02/13/20 Range/Units 08:23 08:23 08:23 WBC 12.1 H (3.8-10.6) k/uL Neutrophils # 9.0 H (1.3-7.7) k/uL Chloride 112 H (98-107) mmol/L Carbon Dioxide 20 L (22-30) mmol/L BUN 18 H (7-17) mg/dL Glucose 110 H (74-99) mg/dL Alkaline Phosphatase 134 H (38-126) U/L Amylase 1853 H* (30-110) U/L Lipase 81982 H (23-300) U/L Urine Appearance Cloudy H (Clear) Urine Protein Trace H (Negative) Ur Leukocyte Esterase Trace H (Negative) Ur Squamous Epith Cells 6 H (0-4) /hpf Urine Bacteria Moderate H (None) /hpf Urine Mucus Rare H (None) /hpf US - abdomen: report reviewed (No cholecystitis or cholelithiasis noted on ultrasound abdomen) Assessment and Plan (1) Acute pancreatitis Narrative/Plan: 39-year-old female with a known history of acute recurrent pancreatitis who presented to the hospital with abdominal pain and found to have elevation in her amylase and lipase consistent with acute pancreatitis. Patient has a long- standing history with multiple admissions needed for pancreatitis, the last in April 2019. She is followed up with advanced endoscopy at [facility] and previously had stent placement in the pancreas and then removal in the summer of 2018. Currently patient seen lying in bed with no other complaints. Current Visit: Yes Status: Acute Code(s): K85.9 - ACUTE PANCREATITIS, UNSPECIFIED * DO NOT USE * SNOMED Code(s): 448893266 (2) Abdominal pain Current Visit: Yes Status: Acute Code(s): R10.9 - UNSPECIFIED ABDOMINAL PAIN SNOMED Code(s): 50422307 (3) Pancreatic divisum Current Visit: Yes Status: Acute Code(s): Q45.3 - OTH CONGENITAL MALFORMATIONS OF PANCREAS AND PANCREATIC DUCT SNOMED Code(s): 53512894 (4) Barretts esophagus Current Visit: No Status: Acute Code(s): K22.70 - BHAGAT'S ESOPHAGUS WITHOUT DYSPLASIA SNOMED Code(s): 264097691 (5) Recurrent acute pancreatitis Current Visit: No Status: Acute Code(s): K85.9 - ACUTE PANCREATITIS, UNSPECIFIED * DO NOT USE * SNOMED Code(s): 684491667 Plan: Supportive care Continue monitor CBC, BMP, LFTs Ultrasound of the abdomen reviewed with no acute findings Continue pain control Continue IV fluid hydration Okay for liquids as tolerated Encourage ambulation Thank you for allowing us to participate in the care of the patient
[2020-02-14 06:13] LABS: Basophils % (A) 0 %; Eosinophils # (A) 0.2 k/uL (0-0.7); Eosinophils % (A) 2 %; HCT 36.3 % (34.0-46.0); Lymphocytes # (A) 2.4 k/uL (1.0-4.8); Lymphocytes % (A) 31 %; MCH 27.9 pg (25.0-35.0); MCV 84.7 fL (80.0-100.0); Monocytes # (A) 0.5 k/uL (0-1.0); Monocytes % (A) 6 %; Neutrophils # (A) 4.7 k/uL (1.3-7.7); Neutrophils % (A) 60 %; Platelet Count 301 k/uL (150-450); RBC 4.28 m/uL (3.80-5.40); WBC 7.8 k/uL (3.8-10.6)
[2020-02-14 06:22] LABS: African American GFR (CKD) >90 (>60 ml/min/1.73 sqM); Anion Gap 2 mmol/L; Blood Urea Nitrogen 9 mg/dL (7-17); Calcium 8.1 mg/dL (8.4-10.2); Carbon Dioxide 25 mmol/L (22-30); Chloride 111 mmol/L (98-107); Glucose 95 mg/dL (74-99); Non-African American GFR(CKD) >90 (>60 ml/min/1.73 sqM); Potassium 4.6 mmol/L (3.5-5.1); Sodium 138 mmol/L (137-145)
[2020-02-14] MEDS ORDERED: BUTALB/APAP/CAFF 50-325-40MG TAB PO PRN (07:55)
--- NOTE | 2020-02-14 08:09 | P.PN ---
Subjective Progress Note Date: 02/14/20 History of Present Illness This is a 39-year-old female patient of Dr. Dover with past medical history significant for gastroesophageal reflux disease, Lagunas's esophagus and chronic pancreatitis, pancreatic divisum. She has seen Dr. Pizarro in the past as well as [facility]. Since her last admission in April 2019 for pancreatitis. Previous to that, she underwent ERCP stent placement January 24 and in February had this removed. Patient states that she woke up in the middle of the night with severe abdominal pain. She denies any recent change in her diet, no alcohol use. She complains of nausea without vomiting. Pain is currently an 8 out of 10 to the epigastric and right upper quadrant. She also complains of post to her back. Patient is no longer a smoker. Patient came into [facility] emergency [facility] for evaluation. She was afebrile, heart rate 106, blood pressure 114/68, pulse ox 90% on room air. WBC 12.1, hemoglobin 13.7. Chloride 112, CO2 20, BUN 18 and creatinine 0.66. Blood sugar 110. Initial lipase 14,340 and amylase 1853. Urinalysis cloudy with nitrate negative and leukoesterase trace. HCG not detected. Abdominal ultrasound revealed no shadowing mobile gallstones or ultrasound evidence of acute cholecystitis. Patient started on Dilaudid for pain and Zofran for nausea, Protonix, IV fluids [facility] with Dr. Sandra. Patient is currently on a clear liquid diet. 02/13: She was seen by GI yesterday with plans to continue current management. Patient has been afebrile, heart rate 85, blood pressure 104/71, pulse ox 96% on room air. WBC 7.8, hemoglobin 12.0. Lipase 1733. Patient is currently on ice chips only. This will be advanced to clears. Pain is little improved from yesterday. Patient is complaining of headache and fioricet added. Review of Systems Constitutional: No fever, no chills, no night sweats. No weight change. No weakness, fatigue or lethargy. No daytime sleepiness. EENT: No headache. No blurred vision or double vision, no loss of vision. No loss of Hearing, no ringing in the ears, no dizziness. No nasal drainage or congestion. No epistaxis. No sore throat. Lungs: No shortness of breath, cough, no sputum production. No wheezing. Cardiovascular: No chest pain, no lower extremity edema. No palpitations. No paroxysmal nocturnal dyspnea. No orthopnea. No lightheadedness or dizziness. No syncopal episodes. Abdominal: Reports abdominal pain-improving. No nausea, vomiting. No diarrhea. No constipation. No bloody or tarry stools. Genitourinary: No dysuria, increased frequency, urgency. No urinary retention. Musculoskeletal: No myalgias. No muscle weakness, no gait dysfunction, no frequent falls. No back pain. No neck pain. Integumentary: No wounds, no lesions. No rash or pruritus. No unusual bruising. No change in hair or nails. Neurologic: No aphasia. No facial droop. No change in mentation. No head injury. No headache. No paralysis. No paresthesia. Psychiatric: No depression. No anxiety. No mood swings. Endocrine: No abnormal blood sugars. No weight change. No excessive sweating or thirst. Physical Examination Gen: This is a morbidly obese 39-year-old female found resting in bed and in no acute distress. HEENT: Head is atraumatic, normocephalic. Pupils equal, round. Sclerae is anicteric. NECK: Supple. No JVD. No lymphadenopathy. No thyromegaly. LUNGS: Clear to auscultation. No wheezes or rhonchi. No intercostal retractions . HEART: Regular rate and rhythm. No murmur. ABDOMEN: Soft. Bowel sounds are present. No masses. Mild right upper quadrant tenderness. EXTREMITIES: No pedal edema. No calf tenderness. NEUROLOGICAL: Patient is awake, alert and oriented x3. Cranial nerves 2 through 12 are grossly intact. Assessment and Plan 1. Acute pancreatitis with pancreatic divisum. Consult with GI appreciated. Diet advanced to clear liquids. Continue Dilaudid for pain control and Zofran for nausea. Repeat lipase in the morning. 2. Chronic pancreatitis status post stent placement with removal last year. 3. Hiatal hernia, gastroesophageal reflux disease, Lagunas's esophagus. Protonix. 4. Recurrent depression and generalized anxiety disorder. Continue citalopram 20 mg daily. 5. Hypertension. Continue Lopressor 12.5 mg twice daily. 6. Morbid obesity. Hold Adipex. 7. DVT prophylaxis. Heparin subcu. Discharge plan: home in the next 24-48hrs. Impression and plan of care have been directed as dictated by the signing physician. Nallely Peterson nurse practitioner acting as scribe for signing physician. Objective - Vital Signs Vital signs: Vital Signs Temp 97.5 F L 02/13/20 23:29 Pulse 85 02/13/20 23:29 Resp 16 02/13/20 23:29 BP 104/71 02/13/20 23:29 Pulse Ox 96 02/13/20 23:29 Intake & Output 02/13/20 02/14/20 02/14/20 18:59 06:59 18:59 Intake Total 120 1000 Output Total 400 250 Balance -280 750 Weight 113.4 kg Intake: Intake, IV Titration 1000 Amount Sodium Chloride 0.9% 1, 1000 000 ml @ 130 mls/hr IV . [id number] UBALDO Rx#:[id number] Oral 120 Output: Urine 400 250 Other: # Voids 0 - Labs CBC & Chem 7: 02/14/20 05:49 02/14/20 05:49 Labs: Abnormal Lab Results - Last 24 Hours (Table) 02/13/20 02/13/20 02/13/20 Range/Units 08:23 08:23 08:23 WBC 12.1 H (3.8-10.6) k/uL Neutrophils # 9.0 H (1.3-7.7) k/uL Chloride 112 H (98-107) mmol/L Carbon Dioxide 20 L (22-30) mmol/L BUN 18 H (7-17) mg/dL Glucose 110 H (74-99) mg/dL Calcium (8.4-10.2) mg/dL Alkaline Phosphatase 134 H (38-126) U/L Amylase 1853 H* (30-110) U/L Lipase 04202 H (23-300) U/L Urine Appearance Cloudy H (Clear) Urine Protein Trace H (Negative) Ur Leukocyte Esterase Trace H (Negative) Ur Squamous Epith Cells 6 H (0-4) /hpf Urine Bacteria Moderate H (None) /hpf Urine Mucus Rare H (None) /hpf 02/14/20 Range/Units 05:49 WBC (3.8-10.6) k/uL Neutrophils # (1.3-7.7) k/uL Chloride 111 H (98-107) mmol/L Carbon Dioxide (22-30) mmol/L BUN (7-17) mg/dL Glucose (74-99) mg/dL Calcium 8.1 L (8.4-10.2) mg/dL Alkaline Phosphatase (38-126) U/L Amylase (30-110) U/L Lipase 1733 H (23-300) U/L Urine Appearance (Clear) Urine Protein (Negative) Ur Leukocyte Esterase (Negative) Ur Squamous Epith Cells (0-4) /hpf Urine Bacteria (None) /hpf Urine Mucus (None) /hpf
[2020-02-14] MEDS: METOPROLOL TARTRATE 12.5 MG TAB PO SCH ×2 (09:20→21:35)
[2020-02-14] MEDS: LORATADINE 10 MG TAB PO SCH (09:26)
[2020-02-14] MEDS: HEPARIN SODIUM,PORCINE 5,000 UNIT/ML 1 ML VIAL SQ SCH ×2 (09:26→21:28)
[2020-02-14] MEDS: PANTOPRAZOLE 40 MG/10 ML VIAL IVP SCH ×2 (09:26→21:28)
[2020-02-14] MEDS: CITALOPRAM HYDROBROMIDE 10 MG TAB PO SCH (09:27)
[2020-02-14] MEDS: HYDROmorphone 1 MG/ML 1 ML SYRINGE IVP PRN ×2 (12:33→21:34)
--- NOTE | 2020-02-14 22:51 | P.PN ---
Subjective Progress Note Date: 02/14/20 Principal diagnosis: Acute recurrent pancreatitis Patient is seen lying in bed to date. She tolerated liquid diet but is hesitant to advance to full liquids at this time. No nausea or vomiting reported. Abdominal pain is still present but improved. Objective - Vital Signs Vital signs: Vital Signs Temp 98.2 F 02/14/20 12:23 Pulse 87 02/14/20 12:23 Resp 16 02/14/20 12:23 BP 114/77 02/14/20 12:23 Pulse Ox 95 02/14/20 12:23 Intake & Output 02/13/20 02/14/20 02/14/20 18:59 06:59 18:59 Intake Total 120 1000 Output Total 400 250 700 Balance -280 750 -700 Weight 113.4 kg Intake: Intake, IV Titration 1000 Amount Sodium Chloride 0.9% 1, 1000 000 ml @ 130 mls/hr IV . Q7H42M [facility] Rx#:[id number] Oral 120 Output: Urine 400 250 700 Other: Voiding Method Toilet # Voids 0 - Exam On physical examination, patient appears comfortable in no apparent distress. HEAD: Normocephalic, atraumatic. EYES: No scleral icterus. No conjunctival injection. MOUTH: No lesions, tongue midline. NECK: Trachea midline, no gross abnormalities. ABDOMEN: Soft, mildly tender to palpation. Bowel sounds are positive. No organomegaly. No guarding or rigidity. EXTREMITIES: No pedal edema. SKIN: No rashes, no jaundice. NEUROLOGIC: Alert and oriented x3. No focal deficits. - Labs CBC & Chem 7: 02/14/20 05:49 02/14/20 05:49 Labs: Abnormal Lab Results - Last 24 Hours (Table) 02/14/20 Range/Units 05:49 Chloride 111 H (98-107) mmol/L Calcium 8.1 L (8.4-10.2) mg/dL Lipase 1733 H (23-300) U/L Assessment and Plan (1) Acute pancreatitis Narrative/Plan: 39-year-old female with a known history of acute recurrent pancreatitis who pre sented to the hospital with abdominal pain and found to have elevation in her amylase and lipase consistent with acute pancreatitis. Patient has a long- standing history with multiple admissions needed for pancreatitis, the last in April 2019. She is followed up with advanced endoscopy at [facility] and previously had stent placement in the pancreas and then removal in the summer of 2018. Current Visit: Yes Status: Acute Code(s): K85.9 - ACUTE PANCREATITIS, UNSPECIFIED * DO NOT USE * SNOMED Code(s): 681600686 (2) Abdominal pain Current Visit: Yes Status: Acute Code(s): R10.9 - UNSPECIFIED ABDOMINAL PAIN SNOMED Code(s): 04464696 (3) Pancreatic divisum Current Visit: Yes Status: Acute Code(s): Q45.3 - [facility] CONGENITAL MALFORMATIONS OF PANCREAS AND PANCREATIC DUCT SNOMED Code(s): 57225603 (4) Barretts esophagus Current Visit: No Status: Acute Code(s): K22.70 - BHAGAT'S ESOPHAGUS WITHOUT DYSPLASIA SNOMED Code(s): 368925493 (5) Recurrent acute pancreatitis Current Visit: No Status: Acute Code(s): K85.9 - ACUTE PANCREATITIS, UNSPECIFIED * DO NOT USE * SNOMED Code(s): 087385076 Plan: Supportive care Continue monitor CBC, BMP, LFTs Ultrasound of the abdomen reviewed with no acute findings Continue pain control Continue IV fluid hydration Okay for liquids as tolerated, plan is to advance to full liquids tomorrow morning Encourage ambulation Thank you for allowing us to participate in the care of the patient
--- NOTE | 2020-02-15 07:37 | P.DS ---
Providers Date of admission: 02/13/20 09:32 Expected date of discharge: 02/15/20 Attending physician: Christopher Love Consults: 02/13/20 09:33 Consult Physician Urgent Consulting Provider: Marybeth Pizarro Consult Reason/Comments: acute pancreatitis Do you want consulting provider notified?: Yes Primary care physician: Carter Dover MD Hospital Course: History of Present Illness This is a 39-year-old female patient of Dr. Dover with past medical history significant for gastroesophageal reflux disease, Lagunas's esophagus and chronic pancreatitis, pancreatic divisum. She has seen Dr. Pizarro in the past as well as [facility]. Since her last admission in April 2019 for pancreatitis. Previous to that, she underwent ERCP stent placement January 24 and in February had this removed. Patient states that she woke up in the middle of the night with severe abdominal pain. She denies any recent change in her diet, no alcohol use. She complains of nausea without vomiting. Pain is currently an 8 out of 10 to the epigastric and right upper quadrant. She also complains of post to her back. Patient is no longer a smoker. Patient came into [facility] emergency center for evaluation. She was afebrile, heart rate 106, blood pressure 114/68, pulse ox 90% on room air. WBC 12.1, hemoglobin 13.7. Chloride 112, CO2 20, BUN 18 and creatinine 0.66. Blood sugar 110. Initial lipase 14,340 and amylase 1853. Urinalysis cloudy with nitrate negative and leukoesterase trace. HCG not detected. Abdominal ultrasound revealed no shadowing mobile gallstones or ultrasound evidence of acute cholecystitis. Patient started on Dilaudid for pain and Zofran for nausea, Protonix, IV fluids and admitted to the [facility] floor. Consult with Dr. Sandra. Patient is currently on a clear liquid diet. 02/13: She was seen by GI yesterday with plans to continue current management. Patient has been afebrile, heart rate 85, blood pressure 104/71, pulse ox 96% on room air. WBC 7.8, hemoglobin 12.0. Lipase 1733. Patient is currently on ice chips only. This will be advanced to clears. Pain is little improved from yesterday. Patient is complaining of headache and fioricet added. 02/14: Patient states that her pain is currently much improved and she denies having any nausea or vomiting. Her repeat lipase is at 369. Patient is tolerating a clear liquid diet which will be advanced for breakfast and lunch. If patient tolerates diet, discharge home today. Assessment and Plan 1. Acute pancreatitis with pancreatic divisum. 2. Chronic pancreatitis status post stent placement with removal last year. 3. Hiatal hernia, gastroesophageal reflux disease, Lagunas's esophagus. 4. Recurrent depression and generalized anxiety disorder. 5. Hypertension. 6. Morbid obesity. Discharge plan: home Impression and plan of care have been directed as dictated by the signing physician. Nallely Peterson nurse practitioner acting as scribe for signing physician. Patient Condition at Discharge: Good Plan - Discharge Summary Discharge Rx Participant: No New Discharge Prescriptions: No Action Citalopram Hydrobromide [Citalopram HBr] 10 mg PO DAILY Omeprazole 20 mg PO DAILY Metoprolol Tartrate [Lopressor] 12.5 mg PO BID Montelukast [Singulair] 10 mg PO DAILY PRN PRN Reason: Allergy Symptoms Loratadine [Claritin] 10 mg PO DAILY Phentermine HCl [Adipex-P] 18.75 mg PO DAILY Discharge Medication List Citalopram Hydrobromide [Citalopram HBr] 10 mg PO DAILY 11/08/17 [History] Omeprazole 20 mg PO DAILY 09/30/18 [History] Metoprolol Tartrate [Lopressor] 12.5 mg PO BID 04/20/19 [History] Loratadine [Claritin] 10 mg PO DAILY 02/13/20 [History] Montelukast [Singulair] 10 mg PO DAILY PRN 02/13/20 [History] Phentermine HCl [Adipex-P] 18.75 mg PO DAILY 02/13/20 [History] Follow up Appointment(s)/Referral(s): Carter Dover MD [Primary Care Provider] - 1 Week Marybeth Pizarro MD [STAFF PHYSICIAN] - 2 Weeks Patient Instructions/Handouts: Pancreatitis (DC), Pain Management (DC) Activity/Diet/Wound Care/Special Instructions: Hold Adipex until rechecked Drink plenty of fluids. [place] diet, increase as tolerated. Good handwashing by all family members. Activity as tolerated, rest as needed. Call to make your follow up appointments with Dr Pizarro and Dr Dover. Discharge Disposition: HOME SELF-CARE
[2020-02-15] MEDS: PANTOPRAZOLE 40 MG/10 ML VIAL IVP SCH (08:21)
[2020-02-15] MEDS: LORATADINE 10 MG TAB PO SCH (08:22)
[2020-02-15] MEDS: HEPARIN SODIUM,PORCINE 5,000 UNIT/ML 1 ML VIAL SQ SCH (08:22)
[2020-02-15] MEDS: CITALOPRAM HYDROBROMIDE 10 MG TAB PO SCH (08:22)
[2020-02-15] MEDS: METOPROLOL TARTRATE 12.5 MG TAB PO SCH (08:25)
[2020-02-15 12:38] VITALS: BP 130/84; PULSE 75; RESP 20; TEMP 98.5
== END 2020-02-15 13:28 | disposition home or self-care (01) | DRG 439 ==
LOC: EC 07:12 → 4SSUR 09:32 → 6PED 10:29
PROVIDERS: ADMIT Internal Medicine Geriatric Medicine; ATTEND Internal Medicine Geriatric Medicine
DX: K85.90 Acute pancreatitis without necrosis or infection, unspecified (principal); F33.9 Major depressive disorder, recurrent, unspecified; Q45.3 Other congenital malformations of pancreas and pancreatic duct; Z68.41 Body mass index [BMI] 40.0-44.9, adult; K86.1 Other chronic pancreatitis; E66.01 Morbid (severe) obesity due to excess calories; F41.1 Generalized anxiety disorder; I10 Essential (primary) hypertension; K21.9 Gastro-esophageal reflux disease without esophagitis; K22.70 Barrett's esophagus without dysplasia; K44.9 Diaphragmatic hernia without obstruction or gangrene; G43.909 Migraine, unspecified, not intractable, without status migrainosus; Z79.899 Other long term (current) drug therapy; Z88.8 Allergy status to other drugs, medicaments and biological substances; Z91.041 Radiographic dye allergy status; Z91.040 Latex allergy status; Z91.013 Allergy to seafood; Z98.890 Other specified postprocedural states; Z82.49 Family history of ischemic heart disease and other diseases of the circulatory system
CPT/HCPCS: 36415; 76705; 80048; 80053; 81001; 81025; 82150; 83605; 83615; 83690; 85025; 93005; 96361; 96374; 96375; 96376; 99285

== ENCOUNTER → 2020-04-24 | Outpatient (CLI) | payer MEDICAID, OTHER ==
--- NOTE | 2020-04-25 04:48 | CT ---
EXAMINATION TYPE: CT abdomen pelvis w con DATE OF EXAM: 04/24/2020 COMPARISON: 12/29/2018 HISTORY: 40-year-old female Q45.3, pancreatic divisum. TECHNIQUE: Contiguous axial scanning of the abdomen and pelvis following administration of 100 ml Iso mian 300 IV contrast. Delayed images through the kidneys and coronal/sagittal reconstructions perform ed. CT DLP: 2439 mGycm Automated exposure control for dose reduction was used. FINDINGS: Heart normal size without pericardial effusion. Some strandy atelectasis in the lower lungs without p leural effusion. Small hiatal hernia. Liver measures 21.2 cm. No focal liver lesion or biliary ductal dilatation. Portal venous system is patent. Gallbladder, adrenal glands, right kidney, and spleen appear within normal limits. No discrete dilatation of the main pancreatic duct is apparent. Unable to clearly identify a pancreat ic divisum. However, a couple tiny foci of air are present in the region of the neck of the pancreas. Tiny 9 mm cortical hypodensity posterior left kidney too small for accurate CT characterization, prob able tiny cyst. No dilated small bowel, free fluid, or free air. No mesenteric or retroperitoneal lymphadenopathy. Normal appendix. Mild overall stool burden. No pericolonic inflammatory change. Bladder urine distended. Uterus anteverted. Both ovaries are visualized. There is a 1.6 cm dominant f ollicle or functional cyst in the left ovary. No abnormal fluid collection in the pelvis or pelvic ly mphadenopathy. Bones: No osseous destructive process. IMPRESSION: 1. NO APPARENT DILATATION OF THE MAIN PANCREATIC DUCT. UNABLE TO IDENTIFY PANCREATIC DIVISUM MORPHOLO GY. IF PERSISTENT CONCERN, CONSIDER MRI WITH MRCP. 2. TWO PUNCTATE FOCI OF AIR WITHIN THE PANCREAS AT THE LEVEL OF THE PANCREATIC NECK. QUERY ANY RECENT INSTRUMENTATION OR PRIOR SPHINCTEROTOMY. 3. SMALL HIATAL HERNIA.
== END | disposition home or self-care (01) ==
LOC: RADCTMAIN 17:00
PROVIDERS: ATTEND Surgery
DX: K44.9 Diaphragmatic hernia without obstruction or gangrene (principal); K86.89 Other specified diseases of pancreas
CPT/HCPCS: 74177; Q9967

== ENCOUNTER → 2020-11-21 | Outpatient (CLI) | payer MEDICAID, OTHER ==
[2020-11-21 09:50] LABS: Basophils # (A) 0.1 k/uL (0-0.2); Basophils % (A) 1 %; Eosinophils # (A) 0.2 k/uL (0-0.7); Eosinophils % (A) 2 %; HCT 40.3 % (34.0-46.0); HGB 13.3 gm/dL (11.4-16.0); Lymphocytes # (A) 2.5 k/uL (1.0-4.8); Lymphocytes % (A) 29 %; MCHC 33.1 g/dL (31.0-37.0); MCV 84.8 fL (80.0-100.0); Mean Platelet Volume 7.5; Monocytes # (A) 0.6 k/uL (0-1.0); Monocytes % (A) 7 %; Neutrophils # (A) 4.9 k/uL (1.3-7.7); Neutrophils % (A) 59 %; Platelet Count 327 k/uL (150-450); RBC 4.76 m/uL (3.80-5.40); RDW 13.1 % (11.5-15.5); WBC 8.4 k/uL (3.8-10.6)
[2020-11-21 16:32] LABS: African American GFR (CKD) 106.1 (60.0-200.0); Albumin 4.6 g/dL (3.80-4.90); Anion Gap 8.1 mmol/L (4.00-12.00); BUN/Creat Ratio 11.25 Ratio (12.00-20.00); Calcium 9.2 mg/dL (8.7-10.3); Carbon Dioxide 23.9 mmol/L (21.6-31.8); Chol/HDL Ratio 3.21; Globulin 2.3 g/dL (1.6-3.3); LDL Cholesterol,Calculated 111.8 mg/dL (0.0-131.0); Non-African American GFR(CKD) 91.6 (60.0-200.0); Potassium 4.5 mmol/L (3.5-5.5); Total Bilirubin 0.3 mg/dL (0.3-1.2); Total Protein 6.9 g/dL (6.2-8.2); VLDL Calculation 36.2 mg/dL (5.00-40.00)
== END | disposition home or self-care (01) ==
LOC: LABWHC1 07:14
PROVIDERS: ATTEND Internal Medicine
DX: E78.5 Hyperlipidemia, unspecified (principal); D72.829 Elevated white blood cell count, unspecified
CPT/HCPCS: 36415; 80053; 80061; 85025

== ENCOUNTER 2021-01-03 09:41 | Day surgery (SDC) | payer MEDICAID, OTHER ==
[2021-01-01 13:15] VITALS: BMI 42.2
[~2021-01-03 09:41] MED LIST changes: -LIDOCAINE 1% 20 ML VIAL (10MG/ML) FOR IV START INTRADERMA PRN
[2021-01-03 10:09] VITALS: TEMP 98
[2021-01-03] MEDS ORDERED: PROPOFOL 10 MG/ML 20 ML VIAL IV ONE (11:03)
[2021-01-03] MEDS ORDERED: LIDOCAINE 1% INJ 10MG/ML (20 ML MDV) ONE (11:03)
--- NOTE | 2021-01-03 11:11 | P.PCN ---
Date of Procedure: 01/03/21 Procedure(s) Performed: BRIEF HISTORY: Patient is a 40-year-old, pleasant, white female scheduled for an upper endoscopy as a part of evaluation of surveillance of Lagunas's esophagus. PROCEDURE PERFORMED: Esophagogastroduodenoscopy with biopsy. PREOPERATIVE DIAGNOSIS: GERD/Lagunas's esophagus. IV sedation per anesthesia. PROCEDURE: After informed consent was obtained, the patient was brought into the endoscopy unit. IV sedation was administered by Anesthesia under continuous monitoring. Initially the Olympus GIF-140 video endoscope was inserted into the mouth. Esophagus intubated without any difficulty. It was gradually advanced into the stomach and duodenum and carefully examined. The bulb and the second part of the duodenum appeared normal. The scope at this time was withdrawn to the stomach, adequately insufflated with air, and upon careful examination, mucosa of the antrum, body, cardia and the fundus appeared normal. The scope was then withdrawn into the esophagus. Moderate size hiatal hernia with Wilmer erosions noted. The diaphragmatic impression was located at 40 cm from the incisors. The GE junction was located at 35 cm from the incisors. There was a short segment of Lagunas's esophagus and a 5 mm proximal to the GE junction and multiple biopsies were done from this area. The esophagus appeared normal. There were no erosions or ulcerations seen and the patient tolerated the procedure well. IMPRESSION: 1. Short segment Lagunas's esophagus extending 5 mm proximal to the GE junction status post multiple biopsies. 2. Small to moderate size hiatal hernia with Wilmer erosions. RECOMMENDATIONS: The findings of this examination were discussed with the patie nt as well as a family. She was advised to follow with the biopsy results. Continue with omeprazole 20 mg daily and follow antireflux measures. If the biopsy does not have any evidence of dysplasia, she can have a repeat upper endoscopy in 2-3 years..
[2021-01-03 11:52] VITALS: BP 106/60; PULSE 75; RESP 16
== END 2021-01-03 11:56 | disposition home or self-care (01) ==
LOC: ORWHC2ENDO 09:41
PROVIDERS: ATTEND Internal Medicine Gastroenterology
DX: K22.70 Barrett's esophagus without dysplasia (principal); K21.9 Gastro-esophageal reflux disease without esophagitis; K44.9 Diaphragmatic hernia without obstruction or gangrene; F41.8 Other specified anxiety disorders; G43.909 Migraine, unspecified, not intractable, without status migrainosus; J44.9 Chronic obstructive pulmonary disease, unspecified; I10 Essential (primary) hypertension; E78.5 Hyperlipidemia, unspecified; E27.40 Unspecified adrenocortical insufficiency; M79.7 Fibromyalgia; I25.2 Old myocardial infarction; Z91.041 Radiographic dye allergy status; Z91.040 Latex allergy status; Z88.8 Allergy status to other drugs, medicaments and biological substances; Z87.891 Personal history of nicotine dependence; Z79.899 Other long term (current) drug therapy; Z79.02 Long term (current) use of antithrombotics/antiplatelets; Z79.891 Long term (current) use of opiate analgesic; Z99.89 Dependence on other enabling machines and devices
CPT/HCPCS: 43239; 81025; 88305; J2001; J2704

== ENCOUNTER → 2021-05-14 | Outpatient (CLI) | payer MEDICAID, OTHER ==
--- NOTE | 2021-05-14 10:37 | USB ---
Reason for exam: clinical finding. Indicated problem(s): pain in the right breast. Physical Findings: Nurse Summary: Patient complains of right beast pain, 2 o'clock near areola x 6 days, constant ache, feels fullness right breast x 6 days, red excoriated under bilateral breasts. (nurse TM). US Breast RT Right complete breast ultrasound includes all four quadrants, the retroareolar region and axilla. Finding demonstrates no cystic or solid lesion seen. These results were verbally communicated with the patient and result sheet given to the patient on 05/14/21. ASSESSMENT: Negative, BI-RAD 1 RECOMMENDATION: Routine screening mammogram of both breasts. (due now for mammogram) Manage on a clinical basis with regard to skin excoriation and possible yeast infection.
== END | disposition home or self-care (01) ==
LOC: RADUSWWP 07:20
PROVIDERS: ATTEND Internal Medicine Geriatric Medicine
DX: N64.4 Mastodynia (principal)

== ENCOUNTER → 2021-06-03 | Outpatient (CLI) | payer MEDICAID, OTHER ==
[2021-06-03 14:29] LABS: HCT 37.7 % (37.2-46.3); HGB 12.1 g/dL (12.0-15.0); MCH 27.5 pg (27.0-32.0); MCHC 32.1 g/dL (32.0-37.0); MCV 85.7 fL (80.0-97.0); Mean Platelet Volume 9.9 fL (9.5-12.2); Platelet Count 345 X 10*3/uL (140-440); RDW 12.4 % (11.5-14.5); WBC 8.08 X 10*3/uL (4.50-10.00)
[2021-06-03 16:10] LABS: ALT 15 U/L (8-44); AST 13 U/L (13-35); African American GFR (CKD) 125.4 (60.0-200.0); Albumin 4.4 g/dL (3.8-4.9); Alkaline Phosphatase 87 U/L (41-126); BUN/Creat Ratio 13.22 Ratio (12.00-20.00); Blood Urea Nitrogen 8.9 mg/dL (9.0-27.0); Calcium 9.6 mg/dL (8.7-10.3); Chloride 104 mmol/L (96-109); Globulin 2.6 g/dL (1.6-3.3); Glucose 90 mg/dL (70-110); LDL Cholesterol,Calculated 128.9 mg/dL (0.0-131.0); Non-African American GFR(CKD) 108.2 (60.0-200.0); Potassium 4.5 mmol/L (3.5-5.5); Sodium 141 mmol/L (135-145)
== END | disposition home or self-care (01) ==
LOC: LABWHC1 10:13
PROVIDERS: ATTEND Internal Medicine
DX: F41.9 Anxiety disorder, unspecified (principal); E78.5 Hyperlipidemia, unspecified
CPT/HCPCS: 36415; 80053; 80061; 84443; 85027

== ENCOUNTER → 2021-06-18 | Outpatient (CLI) | payer MEDICAID, OTHER ==
--- NOTE | 2021-06-20 11:58 | MM ---
Reason for exam: screening (asymptomatic). Baseline mammogram. History: Took hormonal contraceptives beginning at age 10. Physical Findings: Nurse did not find any significant physical abnormalities on exam. MG 3D Screening Mammo W/Cad Bilateral CC and MLO view(s) were taken. The breast tissue is heterogeneously dense. This may lower the sensitivity of mammography. There is no discrete abnormality. ASSESSMENT: Negative, BI-RAD 1 RECOMMENDATION: Routine screening mammogram of both breasts in 1 year.
== END | disposition home or self-care (01) ==
LOC: RADMAMWWP 13:39
PROVIDERS: ATTEND Internal Medicine Geriatric Medicine
DX: Z12.31 Encounter for screening mammogram for malignant neoplasm of breast (principal)
CPT/HCPCS: 77063; 77067

== ENCOUNTER → 2021-11-07 | Outpatient (CLI) | payer MEDICAID, OTHER ==
[2021-11-07 19:15] LABS: Basophils # (A) 0.04 X 10*3/uL (0.00-0.10); Basophils % (A) 0.4 %; Eosinophils # (A) 0.13 X 10*3/uL (0.04-0.35); Eosinophils % (A) 1.4 %; HCT 38.7 % (37.2-46.3); HGB 12.3 g/dL (12.0-15.0); Immature Grans, Automated 0.4 %; Lymphocytes # (A) 3.23 X 10*3/uL (0.90-5.00); Lymphocytes % (A) 34.8 %; MCH 27.9 pg (27.0-32.0); MCHC 31.8 g/dL (32.0-37.0); MCV 87.8 fL (80.0-97.0); Monocytes # (A) 0.71 X 10*3/uL (0.20-1.00); Monocytes % (A) 7.7 %; NRBC Per 100 WBC 0 /100 WBCS (0.0-0.0); Neutrophils # (A) 5.12 X 10*3/uL (1.80-7.70); Neutrophils % (A) 55.3 %; Platelet Count 348 X 10*3/uL (140-440); RBC 4.41 X 10*6/uL (4.10-5.20); RDW 12.4 % (11.5-14.5); WBC 9.27 X 10*3/uL (4.50-10.00)
[2021-11-07 19:23] LABS: African American GFR (CKD) 123.9 (60.0-200.0); Albumin 4.4 g/dL (3.8-4.9); Albumin/Globulin Ratio 1.57 (1.60-3.17); Anion Gap 11.2 mmol/L (10.00-18.00); BUN/Creat Ratio 9.71 Ratio (12.00-20.00); Blood Urea Nitrogen 6.8 mg/dL (9.0-27.0); Calcium 9.2 mg/dL (8.7-10.3); Carbon Dioxide 24.8 mmol/L (20.0-27.5); Globulin 2.8 g/dL (1.6-3.3); Non-African American GFR(CKD) 106.9 (60.0-200.0); Potassium 4.1 mmol/L (3.5-5.5); Total Bilirubin 0.2 mg/dL (0.30-1.20); Total Protein 7.2 g/dL (6.2-8.2)
== END | disposition home or self-care (01) ==
LOC: LABWHC1 12:21
PROVIDERS: ATTEND Nurse Practitioner Family
DX: K85.90 Acute pancreatitis without necrosis or infection, unspecified (principal)
CPT/HCPCS: 36415; 80053; 82150; 83690; 85025

== ENCOUNTER → 2023-01-19 | Outpatient (CLI) | payer MEDICAID, OTHER ==
--- NOTE | 2023-01-19 12:38 | US ---
EXAMINATION TYPE: US abdomen complete DATE OF EXAM: 01/19/2023 COMPARISON: NONE CLINICAL INDICATION: Female, 42 years old with history of R10.11 RUQ PAIN; right upper quadrant pain x 1 month, hx of chronic pancreatitis TECHNIQUE: Multiple sonographic images of the abdomen are obtained. FINDINGS: EXAM MEASUREMENTS: Liver Length: 21.5 Gallbladder Wall: 0.2cm CBD: 0.3cm Spleen: 8.8cm Right Kidney: 12.1x5.0x4.9cm Left Kidney: 11.0x5.2x5.4cm Pancreas: Pancreas mostly obscured by bowel gas shadowing. A short segment of the main pancreatic du ct at the body is seen dilated to 4 mm. Liver: Enlarged, increased echogenicity and attenuation Gallbladder: wnl Evidence for sonographic Castle's sign: No CBD: wnl Spleen: wnl Right Kidney: wnl Left Kidney: wnl Upper IVC: wnl Abd Aorta: wnl Insight Leader notes: Exam limited due to overlying bowel gas and body habitus IMPRESSION: 1. The pancreas is largely obscured by bowel gas shadowing. A short segment of the main pancreatic du ct is seen, mildly dilated to 4 mm. Findings may be chronic for the patient. Correlate with amylase a nd lipase levels and CA-19-9 markers to assess the need for further CT evaluation. 2. No gallstones or biliary ductal dilatation. 3. Hepatomegaly at 21.5 cm with at least mild hepatic steatosis. Correlate with LFTs, lipid profile, and patient risk factors.
== END | disposition home or self-care (01) ==
LOC: RADUSWWP 07:50
PROVIDERS: ATTEND Internal Medicine Gastroenterology
DX: K76.0 Fatty (change of) liver, not elsewhere classified (principal); K86.1 Other chronic pancreatitis; R41.3 Other amnesia
CPT/HCPCS: 76700

== ENCOUNTER → 2023-01-20 | Outpatient (CLI) | payer MEDICAID, OTHER ==
[2023-01-20 16:06] LABS: ALT 18 U/L (8-44); AST 10 U/L (13-35); Albumin 4.6 d/dL (3.8-4.9); Albumin/Globulin Ratio 1.77 Ratio (1.60-3.17); Alkaline Phosphatase 100 U/L (41-126); Amylase 45 U/L (23-121); BUN/Creat Ratio 16.71 Ratio (12.00-20.00); Blood Urea Nitrogen 11.7 mg/dL (9.0-27.0); Calcium 9.5 mg/dL (8.7-10.3); Carbon Dioxide 24.8 mmol/L (21.6-31.8); Chloride 103 mmol/L (96-109); Globulin 2.6 d/dL (1.6-3.3); Glucose 92 mg/dL (70-110); Lipase 26 U/L (14-63); Potassium 4.4 mmol/L (3.5-5.5); Sodium 142 mmol/L (135-145); Total Bilirubin 0.3 mg/dL (0.3-1.2); Total Protein 7.2 d/dL (6.2-8.2)
[2023-01-20 16:14] LABS: Basophils # (A) 0.05 X 10*3/uL (0.00-0.10); Basophils % (A) 0.5 %; Eosinophils # (A) 0.14 X 10*3/uL (0.04-0.35); Eosinophils % (A) 1.3 %; HCT 41.9 % (37.2-46.3); HGB 13.4 d/dL (12.0-15.0); Lymphocytes # (A) 3.01 X 10*3/uL (0.90-5.00); MCH 27.8 pg (27.0-32.0); MCV 86.9 FL (80.0-97.0); Mean Platelet Volume 9.8 FL (9.5-12.2); Monocytes # (A) 0.73 X 10*3/uL (0.20-1.00); Monocytes % (A) 6.8 %; NRBC Per 100 WBC 0 X 10*3/uL (0.00-0.01); Neutrophils # (A) 6.73 X 10*3/uL (1.80-7.70); Neutrophils % (A) 62.7 %; Platelet Count 408 X 10*3/uL (140-440); RBC 4.82 X 10*6/uL (4.10-5.20); RDW 12.7 % (11.5-14.5); WBC 10.74 X 10*3/uL (4.50-10.00)
== END | disposition home or self-care (01) ==
LOC: LABWHC1 10:30
PROVIDERS: ATTEND Nurse Practitioner Family
DX: Z87.19 Personal history of other diseases of the digestive system (principal)
CPT/HCPCS: 36415; 80053; 82150; 83690; 85025

== ENCOUNTER → 2023-02-08 | Outpatient (CLI) | payer MEDICAID, OTHER ==
--- NOTE | 2023-02-09 21:07 | MR ---
EXAMINATION TYPE: MR abdomen wo/w con DATE OF EXAM: 02/08/2023 5:20 PM INDICATION: Patient age:Female; 42 years old; Reason for study: R93.2 ABN FIND IMAGING OF LIVER AND BILIARY TRACT; [facility]. Follow up from abnormal U/S COMPARISON: MRI 11/20/2009, 01/19/2023 ultrasound. TECHNIQUE: Multiplanar multi-sequence imaging was performed without contrast. Post contrast imaging was performed. Post IV contrast subtraction images were also submitted for review. IV Contrast: 11.5 cc Gadavist FINDINGS: LOWER CHEST: No gross irregularity. ABDOMEN Liver: Unremarkable. Gallbladder and Bile ducts: Unremarkable. Pancreas: Fatty atrophy changes are present most pronounced in the anterior process and pancreatic he ad. There is pancreatic divisum morphology. Spleen: Unremarkable. Adrenal glands: Unremarkable. Kidneys: High T2 signal left renal cyst measuring 15 mm. No obstructive uropathy visualized. Stomach and Bowel: Small aneurysm is present. No evidence for bowel wall thickening or obstruction Peritoneum: No evidence of pneumoperitoneum or free fluid. Vasculature: Unremarkable. No aortic aneurysm. Musculoskeletal: The osseous structures appear intact. Lymph Nodes: No gross evidence for lymphadenopathy. Abdominal wall: Fat-containing umbilical hernia. IMPRESSION: 1. Pancreatic divisum. No ductal dilation or pancreatic mass visualized. Fatty infiltration of the p ancreatic uncinate process and head. 2. Small hiatal hernia 3. Simple hepatic cyst. 4.
== END | disposition home or self-care (01) ==
LOC: RADMRIMAIN 16:33
PROVIDERS: ATTEND Internal Medicine Gastroenterology
DX: K44.9 Diaphragmatic hernia without obstruction or gangrene (principal); Q45.3 Other congenital malformations of pancreas and pancreatic duct; K76.89 Other specified diseases of liver; R93.2 Abnormal findings on diagnostic imaging of liver and biliary tract
CPT/HCPCS: 74183; A9585

== ENCOUNTER 2023-02-10 08:18 | Day surgery (SDC) | payer MEDICAID, OTHER ==
[~2023-02-10 08:18] MED LIST changes: +LIDOCAINE 1% (10MG/ML) FOR IV START INTRADERMA PRN
[2023-02-10] MEDS ORDERED: LACTATED RINGERS 1,000 ML IV ONE (08:56)
[2023-02-10 09:18] VITALS: TEMP 98.3
[2023-02-10] MEDS ORDERED: PROPOFOL 10 MG/ML 20 ML VIAL IV ONE (09:51)
[2023-02-10] MEDS ORDERED: LIDOCAINE 2% INJ 20 MG/ML (2 ML VIAL) ONE (09:51)
--- NOTE | 2023-02-10 10:10 | P.PCN ---
Date of Procedure: 02/10/23 Procedure(s) Performed: BRIEF HISTORY: Patient is a 42-year-old, pleasant, white female scheduled for an upper endoscopy as a part of surveillance of long-standing history of GERD and Lagunas's esophagus. PROCEDURE PERFORMED: Esophagogastroduodenoscopy with biopsy. PREOPERATIVE DIAGNOSIS: Long-standing history of GERD and Lagunas's esophagus. IV sedation per anesthesia. PROCEDURE: After informed consent was obtained, the patient was brought into the endoscopy unit. IV sedation was administered by Anesthesia under continuous monitoring. Initially the Olympus GIF-140 video endoscope was inserted into the mouth. Esophagus intubated without any difficulty. It was gradually advanced into the stomach and duodenum and carefully examined. The bulb and the second part of the duodenum appeared normal. The scope at this time was withdrawn to the stomach, adequately insufflated with air, and upon careful examination, mucosa of the antrum, body, cardia and the fundus appeared normal. Multiple small gastric polyps noted which were biopsied. The scope was then withdrawn into the esophagus. Small hiatal hernia noted. The GE junction was located at 36 cm from the incisors. There was a short segment of Lagunas's esophagus extending 3-4 mm proximal to the GE junction which was biopsied. The rest of the esophagus appeared normal. There were no erosions or ulcerations seen and the patient tolerated the procedure well. IMPRESSION: 1. Short segment Lagunas's esophagus status post biopsy. 2. Small hiatal hernia 3. Multiple small gastric polyps. RECOMMENDATIONS: The findings of this examination were discussed with the patient as well as her family. She was advised to follow with the biopsy results. If the biopsy does not show any evidence of dysplasia she can have a repeat upper endoscopy in 3 years.
[2023-02-10 10:36] VITALS: BP 135/81; PULSE 82; RESP 16
== END 2023-02-10 10:46 | disposition home or self-care (01) ==
LOC: ORWHC2ENDO 08:18
PROVIDERS: ATTEND Internal Medicine Gastroenterology
DX: K22.70 Barrett's esophagus without dysplasia (principal); K21.00 Gastro-esophageal reflux disease with esophagitis, without bleeding; K31.7 Polyp of stomach and duodenum; K44.9 Diaphragmatic hernia without obstruction or gangrene; I10 Essential (primary) hypertension; Z91.013 Allergy to seafood; Z98.890 Other specified postprocedural states; Z79.899 Other long term (current) drug therapy; Z87.19 Personal history of other diseases of the digestive system; Z91.040 Latex allergy status; Z91.048 Other nonmedicinal substance allergy status; Z87.891 Personal history of nicotine dependence
CPT/HCPCS: 81025; 88305; 43239; J2704; J2001

== ENCOUNTER → 2023-04-02 | Outpatient (CLI) | payer MEDICAID, OTHER ==
--- NOTE | 2023-04-11 10:48 | MR ---
MRI right ankle. HISTORY: Lateral foot pain, rule out tendon strain. COMPARISON: None TECHNIQUE: Multiecho multiplanar images of the right ankle were obtained without contrast. FINDINGS: In the medial aspect of the distal fibula at the attachment of the posterior talofibular ligament the re are tiny cysts and small focal area of edema. There is fluid adjacent to the posterior aspect of t he talofibular ligament but intact fibers of the ligament are identified indicating no discrete tear. Remaining osseous structures are intact there is no fracture. There is no joint effusion. Flexor tendons, extensor tendons and peroneus tendons are all intact and there is no evidence of teno synovitis or tendon injury. The Achilles tendon is intact. There is focal mild abnormal signal intensity in the sinus Tarsi with T1 and T2-weighted images sugge stive of mild acute inflammation. Clinical correlation is recommended. Plantar fascia is normal. No intra-articular abnormalities are seen within the mid foot. IMPRESSION: 1. No evidence of tendon injury of the right ankle. 2. Mild inflammatory changes in the sinus Tarsi. 3. Small focal abnormality at the fibular attachment of the posterior talofibular ligament as describ ed above.
== END | disposition home or self-care (01) ==
LOC: RADMRIMAIN 06:08
PROVIDERS: ATTEND Podiatrist
DX: S86.311D Strain of muscle(s) and tendon(s) of peroneal muscle group at lower leg level, right leg, subsequent encounter (principal); M77.51 Other enthesopathy of right foot and ankle; M76.71 Peroneal tendinitis, right leg; X58.XXXD Exposure to other specified factors, subsequent encounter

== ENCOUNTER → 2023-11-17 | Outpatient (CLI) | payer MEDICAID ==
--- NOTE | 2023-11-21 22:14 | MR ---
EXAMINATION TYPE: MR ankle LT wo con DATE OF EXAM: 11/17/2023 COMPARISON: None available HISTORY: Left ankle pain due to squatting injury Multiplanar, multisequence images of the left ankle were acquired without contrast. FINDINGS: LIGAMENTS: Anterior talofibular, calcaneofibular, posterior talofibular ligaments are normal. Deltoid ligamentous complex is normal. Tibiofibular syndesmosis is normal. Spring ligament is normal. Lisfranc ligament normal. PERONEAL TENDONS: The peroneal tendons are intact. Small amount of fluid within the common tendon she ath. FLEXOR TENDONS: Small amount of fluid within the posterior tibial tendon sheath and extensor digitoru m longus sheath, most consistent with tenosynovitis. The flexor hallucis longus tendon is intact and tendon sheath is normal. EXTENSOR TENDONS: Normal. ACHILLES TENDON: Normal. BONES/CARTILAGE/JOINT: Bone marrow signal is normal. Articular cartilage is normal. No joint effusion. SOFT TISSUES: Ganglion cyst at the dorsal lateral aspect of the talonavicular joint measuring 5 x 8 x 17 mm. Lateral subcutaneous edema. Kager's fat pad is normal. Sinus tarsi is normal. Plantar fascia is normal. Neurovascular structures are normal. IMPRESSION: 1. Tenosynovitis involving the common peroneal tendon sheath, posterior tibial tendon sheath, and ext ensor digitorum longus sheath. 2. No flexor, extensor, or peroneal tendon tear. 3. Talonavicular joint dorsal lateral ganglion cyst formation.
== END | disposition home or self-care (01) ==
LOC: RADMRIMAIN 17:17
PROVIDERS: ATTEND Podiatrist
DX: M65.872 Other synovitis and tenosynovitis, left ankle and foot (principal); M67.472 Ganglion, left ankle and foot; M76.62 Achilles tendinitis, left leg

== ENCOUNTER 2024-01-14 05:42 | Day surgery (SDC) | payer MEDICAID ==
[2024-01-12 15:14] VITALS: BMI 47.7
[2024-01-14] MEDS ORDERED: SCOPOLAMINE 1 MG/72 HR PATCH TRANSDERM ONE (06:04)
[2024-01-14] MEDS: IV FLUID CONTINUATION 1,000 ML IV ONE ×2 (06:24→11:06)
[2024-01-14] MEDS ORDERED: MIDAZOLAM 2 MG/2 ML VIAL IV PRN (07:00)
[2024-01-14] MEDS: DEXAMETHASONE SOD PHOSPHATE 4 MG/ML 1 ML VIAL IV ONE (07:01)
[2024-01-14] MEDS: ONDANSETRON 4 MG/2 ML VIAL IVP ONE (07:02)
[2024-01-14] MEDS: LACTATED RINGERS 1,000 ML IV SCH (07:02)
[2024-01-14] MEDS: MIDAZOLAM 2 MG/2 ML VIAL IVP ONE (07:12)
[2024-01-14] MEDS: fentaNYL (PF) 50 MCG/ML 2 ML AMP IVP ONE (07:12)
[2024-01-14] MEDS ORDERED: SUCCINYLCHOLINE CHLORIDE 200 MG/10 ML VIAL IV ONE (07:25)
[2024-01-14] MEDS ORDERED: fentaNYL (PF) 50 MCG/ML 2 ML AMP ONE (07:25)
[2024-01-14] MEDS ORDERED: PROPOFOL 10 MG/ML 20 ML VIAL IV ONE (07:25)
[2024-01-14] MEDS ORDERED: ROPIVACAINE 5 MG/ML 30 ML VIAL ONE (07:25)
[2024-01-14] MEDS ORDERED: SODIUM CHLORIDE 0.9% (PF) 10 ML VIAL ONE (07:25)
[2024-01-14] MEDS ORDERED: LIDOCAINE 1% INJ 10MG/ML (20 ML MDV) ONE (07:25)
[2024-01-14] MEDS: ceFAZolin 3 GM in SODIUM CHLORIDE 0.9% 100 ML IVPB PRN (07:29)
[2024-01-14] MEDS: ceFAZolin 1,000 MG in SODIUM CHLORIDE 0.9% 1,000 ML IRRIGATION ONE (08:09)
--- NOTE | 2024-01-14 09:05 | P.OP ---
Date of Procedure: 01/14/24 Preoperative Diagnosis: Achilles insertional tendinitis left ankle Postoperative Diagnosis: same Procedure(s) Performed: secondary repair of left Achilles tendon Implants: Arthrex 3.9 mm swivel lock anchors 2 Arthrex knotless fiber Pasquale's 2 Anesthesia: GETA Surgeon: Michi Hoff Estimated Blood Loss (ml): 40 Pathology: none sent Condition: stable Disposition: PACU Description of Procedure: Prior to the patient being brought to the operating room, anesthesia administered nerve block on the surgical extremity. Once completed, the patient was taken into the operating room. Timeout was taken to confirm correct patient identifiers, correct laterality of surgery, and correct procedure. When all staff in the room were in agreement with the timeout, the patient was induced and placed under general anesthesia. The patient was then placed in the prone position on the operating room table. Appropriate padding was placed beneath the patient's face as well as in the thoracic area. Once anesthesia was satisfied with the patient positioning, a well-padded tourniquet was placed on the thigh. Then the leg was prepped and draped in the usual manner. The leg was exsanguinated and the tourniquet inflated to 250 mmHg. Attention was directed to the posterior aspect of the calcaneus at the Achilles insertion. Utilizing fluoroscopy, the insertion point was marked transversely across the heel. 4 small incisions are made in the 10:00 2:00 5:00 and 7:00 positions. 2 incisions were distal to the insertion and the other 2 proximal. An elevator was used to create tissue planes tween the skin and Achilles tendon between the 4 incisions. And then deeper dissection was done to the proximal incisions between the Achilles tendon and the calcaneus. A 4 mm bur was then inserted into the more distal incisions. The bur was connected to irrigation to help prevent damage to the bone. The bur was used to resect the posterior superior aspect of the calcaneus and then advance it to the calcification in the Achilles tendon. Once adequate resection was completed, which was confirmed under fluoroscopy, the bur was removed and then the area was thoroughly irrigated to remove any bony fragments. Through the more distal holes, K wires for the placement anchors were placed into the calcaneus. Over drilling was completed and then the holes were both tapped. Attention then directed to the more proximal holes were drill holes for the combination fiber Ariel anchors and speed bridge suture were made. This is done utilizing proper technique, then the anchors were inserted through the orthodontic band maker and then impacted to proper depth. The suture was deployed and the orthodontic band maker removed. The suture for the speed bridge which was attached to a needle, was passed through the incision due to the Achilles and out the skin. This was repeated with a working stitch through a separate needle. Then this is done on the opposite side in the same manner. The working stitches for the fiber Pasquale anchors were then passed medial to lateral through the superficial skin plane utilizing the hook passer. Once the sutures were pulled through the were looped through the pull-through stitch which was then carefully tensioned through the anchor until the stitch was free. Both sutures were passed first before full tightening. Then both sutures were tensioned which tied the tendon for the ripstop back to the calcaneus. The telltale puckering of the skin was noted. The working sutures were then cut and then the needles cut off the speed bridge suture. Utilizing a combination of the hook and a hemostat one stitch was placed through the ipsilateral distal hole and the other through the contralateral distal hole in the central repeated on both sides so that the classic speed bridge construct was achieved. The K wires were removed and then the arms of the suture were placed through the eyelet of the 3.9 mm swivel lock anchor. The orthodontic band maker was aligned with the drill hole in the calcaneus, and with the suture under full tension, the anchor was inserted and and advanced to proper depth within the calcaneus. The area was palpated to indicate that the Achilles was fully intact and attached to the posterior aspect of the calcaneus. The wounds were thoroughly irrigated with antibiotic saline. Each incision was closed with 3-0 nylon. The incision was covered with a jumpstart dressing and then a bulky dry dressing. The tourniquet was released and capillary refill return to all digits on the left foot. The patient was then placed in a well-padded, well molded plaster posterior mold/sugar tong splint. Ankle was held in neutral position until the splint was fully dried. The patient then rolled onto the transfer table where anesthesia was reversed and was taken recovery with vital signs stable
[2024-01-14 09:21] VITALS: TEMP 97.1
[2024-01-14] MEDS: HYDROmorphone 0.5 MG/0.5 ML SYRINGE IVP PRN (09:50)
[2024-01-14 11:03] VITALS: RESP 16
[2024-01-14] MEDS: HYDROcodone/APAP 5-325MG 1 EACH TAB PO STA (11:21)
[2024-01-14 11:55] VITALS: BP 116/63; PULSE 97
--- NOTE | 2024-01-15 12:04 | P.ANPRN ---
Procedure Note - Anesthesia - Nerve Block Performed Left Popliteal Single Time Out Performed: Yes (0711) Date of Procedure: 01/14/24 Procedure Start Time: :12 Procedure Stop Time: :16 Location of Patient: PreOp Indication: Acute Post-Operative Pain, Requested by Surgeon Specifically requested for management of pain by DrLeo: Michi Hoff Sedation Type: Sedate with meaningful contact maintained Preparation: Sterile Prep Position: Right Lateral Catheter: None Needle Types: Pajunk Needle Gauge: 21 Ultrasound used to visualize needle placement: Yes Ultrasound used to observe medication spread: Yes Injectate: 0.5% Ropivacaine (see comment for volume) (15cc +10cc nacl pf) Blood Aspirated: No Pain Paresthesia on Injection Noted: No Resistance on Injection: Normal Image Stored and Saved: Yes Events: Uneventful and Well Tolerated
--- NOTE | 2024-01-15 12:06 | P.ANPRN ---
Procedure Note - Anesthesia - Nerve Block Performed Left Adductor Canal Single Time Out Performed: Yes (0711) Date of Procedure: 01/14/24 Procedure Start Time: :17 Procedure Stop Time: :21 Location of Patient: PreOp Indication: Acute Post-Operative Pain, Requested by Surgeon Specifically requested for management of pain by DrLeo: Michi Hoff Sedation Type: Sedate with meaningful contact maintained Preparation: Sterile Prep Position: Supine Catheter: None Needle Types: Pajunk Needle Gauge: 21 Ultrasound used to visualize needle placement: Yes Ultrasound used to observe medication spread: Yes Injectate: 0.5% Ropivacaine (see comment for volume) (15cc +10cc nacl pf) Blood Aspirated: No Pain Paresthesia on Injection Noted: No Resistance on Injection: Normal Image Stored and Saved: Yes Events: Uneventful and Well Tolerated
== END 2024-01-14 12:33 | disposition home or self-care (01) ==
LOC: OR 05:42
PROVIDERS: ATTEND Podiatrist
DX: M76.62 Achilles tendinitis, left leg (principal); G89.18 Other acute postprocedural pain; K21.9 Gastro-esophageal reflux disease without esophagitis; Z91.041 Radiographic dye allergy status; Z88.8 Allergy status to other drugs, medicaments and biological substances; Z79.899 Other long term (current) drug therapy
CPT/HCPCS: 64447; 81025; 64445; 27654; C1713; J2250; J0330; J1100; J0690 ×2; J2405; J2001; J3010; J2795; J2704; J1170

== ENCOUNTER → 2024-03-22 | Outpatient (CLI) | payer MEDICAID ==
--- NOTE | 2024-03-23 12:46 | MR ---
EXAMINATION TYPE: MR ankle LT wo con DATE OF EXAM: 03/22/2024 COMPARISON: 11/17/2023 HISTORY: 44-year-old female M79.672, Left ankle pain, limited movement. Hx surgery January 2024, fall i njury post surgery. TECHNIQUE: Multiplanar, multisequence images of the left ankle were obtained without IV contrast. FINDINGS: There is a insertional Achilles tendon rupture. Stump is retracted above the level of the posterior m alleolus, 5 cm above the calcaneal insertion. Some hemorrhagic fluid and edema within the intervening gap. Postsurgical metal artifact noted within the posterior calcaneus. Scattered mild subchondral degenerative signal change such as the lateral aspect of the talonavicular joint and scattered within the navicular cuneiform joints. Circumferential soft tissue swelling at the ankle. The tibiotalar joint and subtalar joints appear in tact. Small joint effusions. The syndesmosis and the anterior extensor tendons are intact. The medial flexor tendons as well as the deltoid spring ligament complex appear intact. The lateral ligamentous complex and peroneal tendons appear intact though there is mild tenosynovial fluid along the inframalleolar peroneal tendons. Tiny plantar heel spur. Origin of the plantar fascia appears intact. IMPRESSION: 1. Interval surgery to the posterior calcaneus. There is metal artifact in this region and no radiogr aphic correlation is available to identify the type of surgery. 2. Insertional Achilles tendon rupture. The stump is retracted to just above the level of the posteri or malleolus. Retracted 5 cm from the calcaneal insertion. 3. Inframalleolar peroneal tenosynovitis and prominent circumferential soft tissue swelling throughou t the ankle. 4. Some scattered subchondral osseous edema could reflect mild bone bruises, edema reactive to altere d biomechanics, or could be secondary to mild osteoarthritic change throughout the midfoot and hindfo ot regions. [facility], , 03/23/2024 12:43 PM
== END | disposition home or self-care (01) ==
LOC: RADMRIMAIN 17:54
PROVIDERS: ATTEND Podiatrist
DX: M66.372 Spontaneous rupture of flexor tendons, left ankle and foot

== ENCOUNTER → 2024-05-31 | Outpatient (CLI) | payer MEDICAID ==
--- NOTE | 2024-05-31 11:41 | MM ---
Reason for Exam: Screening (asymptomatic). Last mammogram was performed 2 year(s) and 11 month(s) ago. Patient History: Menarche at age 10. First Full-Term at age 17. Perimenopausal. Hormonal Contraceptives, from age 10 until age 17. Paternal grandmother had ovarian cancer at or over age 50. Risk Values: Peg 5 year model risk: 0.6%. NCI Lifetime model risk: 7.7%. Prior Study Comparison: 06/18/2021 Bilateral Screening Mammogram, [facility]. Tissue Density: The breasts are heterogeneously dense, which may obscure small masses. Findings: Analyzed By CAD. There is no suspicious group of microcalcifications or new suspicious mass in either breast. Overall Assessment: Benign, BI-RAD 2 Management: Screening Mammogram of both breasts in 1 year. . Patient should continue monthly self-breast exams. A clinical breast exam by your physician is recommended on an annual basis. This exam should not preclude additional follow-up of suspicious palpable abnormalities. Note on Peg scores and lifetime risk: 1. A Peg score greater than 3% is considered moderate risk. If this is the case, consider specialist referral to assess eligibility for a risk reducing agent. 2. If overall lifetime risk for the development of breast cancer is 20% or higher, the patient may qualify for future screening with alternating mammogram and breast MRI. [facility], , 05/31/2024 11:38 AM. Electronically signed and approved by: Christopher Francisco M.D. Radiologis
== END | disposition home or self-care (01) ==
LOC: RADMAMWWP 07:10
PROVIDERS: ATTEND Obstetrics & Gynecology Obstetrics
DX: Z12.31 Encounter for screening mammogram for malignant neoplasm of breast (principal); R92.333 Mammographic heterogeneous density, bilateral breasts
CPT/HCPCS: 77063; 77067

== ENCOUNTER → 2024-10-16 | Outpatient (CLI) | payer MEDICAID ==
[2024-10-16 11:06] LABS: ALT 17 U/L (8-44); AST 14 U/L (13-35); Albumin 4.2 g/dL (3.8-4.9); Albumin/Globulin Ratio 1.62 Ratio (1.60-3.17); Alkaline Phosphatase 98 U/L (41-126); Blood Urea Nitrogen 11.2 mg/dL (9.0-27.0); Calcium 9.4 mg/dL (8.7-10.3); Carbon Dioxide 25.2 mmol/L (21.6-31.8); Chloride 106 mmol/L (96-109); Chol/HDL Ratio 3.79 Ratio; Globulin 2.6 g/dL (1.6-3.3); Glucose 102 mg/dL (70-110); LDL Cholesterol,Calculated 141.2 mg/dL (0.0-131.0); Potassium 4.6 mmol/L (3.5-5.5); Sodium 142 mmol/L (135-145); Total Bilirubin <0.2 mg/dL (0.3-1.2); Total Protein 6.8 g/dL (6.2-8.2)
[2024-10-16 15:28] LABS: Basophils # (A) 0.05 X 10*3/uL (0.00-0.10); Basophils % (A) 0.6 %; Eosinophils # (A) 0.16 X 10*3/uL (0.04-0.35); HCT 40.5 % (37.2-46.3); HGB 12.5 g/dL (12.0-15.0); Lymphocytes # (A) 3.05 X 10*3/uL (0.90-5.00); Lymphocytes % (A) 37.9 %; MCH 27.1 pg (27.0-32.0); MCHC 30.9 g/dL (32.0-37.0); MCV 87.9 FL (80.0-97.0); Mean Platelet Volume 10.1 FL (9.5-12.2); Monocytes # (A) 0.69 X 10*3/uL (0.20-1.00); Monocytes % (A) 8.6 %; NRBC Per 100 WBC 0 X 10*3/uL (0.00-0.01); Neutrophils # (A) 4.08 X 10*3/uL (1.80-7.70); Neutrophils % (A) 50.7 %; Platelet Count 422 X 10*3/uL (140-440); RBC 4.61 X 10*6/uL (4.10-5.20); RDW 13.2 % (11.5-14.5); WBC 8.05 X 10*3/uL (4.50-10.00)
== END | disposition home or self-care (01) ==
LOC: LABWHC1 07:53
PROVIDERS: ATTEND Internal Medicine Geriatric Medicine
DX: E07.9 Disorder of thyroid, unspecified (principal); K86.1 Other chronic pancreatitis; R73.9 Hyperglycemia, unspecified
CPT/HCPCS: 36415; 80053; 80061; 83036; 84443; 85025

== ENCOUNTER → 2024-12-21 | Outpatient (CLI) | payer MEDICAID ==
--- NOTE | 2024-12-21 14:39 | XR ---
EXAMINATION TYPE: XR lumbar spine 2 or 3V DATE OF EXAM: 12/21/2024 2:29 PM COMPARISON: None. CLINICAL INDICATION: Female, 44 years old with history of M54.16 Radiculopathy, pain TECHNIQUE: 3 view(s) obtained. FINDINGS: There are 5 lumbar-type vertebral bodies. Pedicles are intact. Disc heights are preserved. Vertebral body heights are preserved. Alignment is normal. Follow-up MRI can be performed as clinically indicat ed IMPRESSION: 1. Unremarkable 3 view lumbar spine [facility], , 12/21/2024 2:36 PM
== END | disposition home or self-care (01) ==
LOC: RADXRMAIN 14:04
PROVIDERS: ATTEND Internal Medicine Geriatric Medicine
DX: M54.16 Radiculopathy, lumbar region (principal)
CPT/HCPCS: 72100